=== PATIENT | male | born 1960 | race American Indian/Alaskan Native ===

== ENCOUNTER 2016-09-30 04:26 | Inpatient (IN) | payer MEDICARE, OTHER ==
[2016-09-30] MEDS ORDERED: Aspirin 325 mg EC Tablets PO STA (04:36)
--- NOTE | 2016-09-30 04:36 | C.PDOC ---
History Of Present Illness patient presents with worsening shortness of breath and chest discomfort over the last few hours. Pt is wearing a life vest for ef of about 20%. Speaking in 1 -2 word "sentences". Diaphoretic. Time Seen by Provider: 09/30/16 04:26 History Per: Patient History/Exam Limitations: clinical condition Onset/Duration Of Symptoms: Hrs Current Symptoms Are (Timing): Worse Initiating Event: Upper Respiratory Illness Quality: Dull, Aching Exacerbating Factor(s): Exertion Current Respiratory Medications: See Home Med List Severity: Severe Pain Scale Rating Of: 9 Associated Symptoms: Sweating, Chest Pain. denies: Fever, Chills Reports Recently: Seen In ED, Treated By A Physician Recent travel outside of the [place]: No Additional History Per: EMS Past Medical History Reviewed: Historical Data, Nursing Documentation, Vital Signs Vital Signs: Last Vital Signs Temp Pulse 112 H 09/30/16 05:27 Resp 16 09/30/16 05:27 BP 171/114 H 09/30/16 05:27 Pulse Ox 18 L 09/30/16 05:27 - Medical History PMH: Arthritis (R KNEE TKR), Asthma, COPD, Diabetes, HTN, Hypercholesterolemia, Hyperlipidemia, Pancreatitis Denies: CHF (denies), Depression, Chronic Kidney Disease, TIA - [facility] Procedures ALCOHOL DETOXIFICATION (08/20/13) INJECT/INFUSE NEC (08/17/13) MEASURE OF CARDIAC SAMPL & PRESSURE, L HEART, PERC APPROACH (05/20/16) PLAIN RADIOGRAPHY OF LEFT HEART USING LOW OSMOLAR CONTRAST (05/20/16) PLAIN RADIOGRAPHY OF THORACIC AORTA USING L OSM CONTRAST (05/20/16) Family History: States: No Known Family Hx - Social History Hx Tobacco Use: Yes Hx Alcohol Use: No Hx Substance Use: No - Immunization History Hx Tetanus Toxoid Vaccination: Yes Hx Influenza Vaccination: Yes Hx Pneumococcal Vaccination: Yes Review Of Systems Review Of Systems: ROS cannot be obtained secondary to pt's inabilty to answer questions. Physical Exam - Physical Exam Appears: In Acute Distress Skin: Diaphoretic Eye(s): bilateral: Normal Inspection Nose: Flaring Oral Mucosa: Moist Neck: Supple Chest: Symmetrical Cardiovascular: Rhythm Regular Respiratory: Decreased Breath Sounds, Rales (bases), Wheezing (few) Gastrointestinal/Abdominal: Soft, No Tenderness, No Distention, No Guarding Back: Normal Inspection Extremity: No Tenderness Extremity: Bilateral: Atraumatic Neurological/Psych: Oriented x3, Normal Cognition Gait: Unable To Assess ED Course And Treatment - Laboratory Results Result Diagrams: 09/30/16 04:52 09/30/16 04:52 ECG: Interpreted By Me, Viewed By Me ECG Rhythm: Sinus Tachycardia (130), Nonspecific Changes (lvh with repol abn) Pulse Ox Interpretation: Normal - Radiology CXR: Interpreted by Me, Viewed By Me Progress Note: blood work, iv lasix, bipap, nitro Critical Care Time - Critical Care Note Total Time (in mins): 45 Documented critical care: time excludes all time spent performing seperately billable procedures. Disposition Discussed With Dr.: Enrike Mccray Comment: accepted the pt on his service and took over the carea t 5:40AM Doctor Will See Patient In The: ED Counseled Patient/Family Regarding: Studies Performed, Diagnosis - Disposition Disposition: HOSPITALIZED Disposition Time: 04:35 Condition: GUARDED - POA Present On Arrival: Poor Glycemic Control - Clinical Impression Clinical Impression: Congestive heart failure, Respiratory distress, Chest pain Decision To Admit - Pt Status Changed To: Hospital Disposition Of: Inpatient - Admit Certification Admit to Inpatient:: After my assessment, the patient will require hospitalization for at least two midnights. This is because of the severity of symptoms shown, intensity of services needed, and/or the medical risk in this patient being treated as an outpatient. - InPatient: Physician Admission Certification: I certify that this patient requires 2 or more midnights of care for the following reason:: After my assessment, the patient will require hospitalization for at least two midnights. This is because of the severity of symptoms shown, intensity of services needed, and/or the medical risk in this patient being treated as an outpatient. - . Bed Request Type: Telemetry Admitting Physician: Enrike Mccray Patient Diagnosis: Congestive heart failure, Respiratory distress, Chest pain
[2016-09-30 04:37] VITALS: BMI 25.9
[2016-09-30] MEDS ORDERED: Nitroglycerin 2% Ointment Foilpak UD TOP STA (04:40)
[2016-09-30] MEDS ORDERED: Nitroglycerin 2% Ointment Foilpak UD TOP ONE (04:45)
[2016-09-30 04:54] LABS: BASO # 0.1 K/uL (0.0-0.2); BASO % 1.2 % (0.0-2.0); EOS # 0.2 K/uL (0.0-0.7); EOS % 1.8 % (0.0-4.0); HEMATOCRIT 39.7 % (35.0-51.0); LYMPH # 2.2 K/uL (1.0-4.3); LYMPH % 22.8 % (20.0-40.0); MEAN CELL VOLUME 93.9 fL (80.0-94.0); MEAN CORPUSCULAR HEMOGLOBIN 30.6 pg (27.0-31.0); MEAN CORPUSCULAR HGB CONC 32.6 g/dL (33.0-37.0); MEAN PLATELET VOLUME 8.9 fL (7.2-11.7); MONO # 0.7 K/uL (0.0-0.8); RED CELL DISTRIBUTION WIDTH 14.5 % (11.5-14.5); WHITE BLOOD COUNT 9.7 K/uL (4.8-10.8)
[2016-09-30 05:03] LABS: CHLORIDE 100 mmol/L (98-107)
[2016-09-30 05:04] LABS: POTASSIUM 4.7 mmol/L (3.6-5.2); SODIUM 136 mmol/L (132-148)
[2016-09-30 05:06] LABS: ALB/GLOB RATIO 1.2 (1.0-2.1); ALKALINE PHOSPHATASE 78 U/L (38-126); AST/SGOT 42 U/L (17-59); BLOOD UREA NITROGEN 12 mg/dL (9-20); CARBON DIOXIDE 20 mmol/L (22-30); GFR AFRICAN-AMERICAN > 60; TOTAL PROTEIN 6.7 g/dL (6.3-8.3)
[2016-09-30 05:06] LABS: ABG ALLEN TEST POS; DRAW SITE RR
[2016-09-30 05:07] LABS: ALT/SGPT 23 U/L (21-72); GLUCOSE,RANDOM 225 mg/dL (75-110); MAGNESIUM 1.9 mg/dL (1.6-2.3)
[2016-09-30 05:09] LABS: INR 0.9
[2016-09-30] MEDS: Albuterol-Ipratrop 3 mg / 0.5 (3 ml) UD IH SCH ×3 (05:21→05:45)
[2016-09-30] MEDS ORDERED: Albuterol-Ipratrop 3 mg / 0.5 (3 ml) UD ONE (05:25)
[2016-09-30 05:31] LABS: RBC URINE 1 /hpf (0-3); URINE BACTERIA RARE (<OCC); URINE BILIRUBIN NEGATIVE (NEGATIVE); URINE BLOOD NEGATIVE (NEGATIVE); URINE COLOR Straw (YELLOW); URINE GLUCOSE (UA) NORMAL (Normal); URINE KETONE NEGATIVE (NEGATIVE); URINE LEUKOCYTE ESTERASE NEG Leu/uL (Negative); URINE PROTEIN 2+ mg/dL (NEGATIVE); URINE UROBILINOGEN NORMAL mg/dL (0.2-1.0); WBC URINE < 1 /hpf (0-5)
[2016-09-30] MEDS ORDERED: Oxycodone/Acetaminophen 5/325 mg Tab PO PRN ×3 (06:20→10:10)
--- NOTE | 2016-09-30 06:33 | CP.PCM.HP ---
<Amado Reid - Last Filed: 09/30/16 07:02> History of Present Illness - History of Present Illness History of Present Illness: This is a 56 y/o M with a PMH of CHF, HTN, diabetes, arthritis, pancreatitis, hyperlipidemia and ETOH abuse presents to the ED because he had chest pain and SOB since yesterday. Pt states that he noticed that while walking to the store he was not able to ambulate for more than 2 minutes without having to stop to catch his breath. He states that he was fine at rest up until early this morning (~01:00), it became too much and he came in to the ED. Pt reports that he has missed some of his home medication doses due to new social stressors which he did not want to talk about. He states that his chest feels heavy and he has palpitations. Pt states that this is the same feeling he has for prior admission with CHF exacerbation. He admits to orthopnea and palpitations as well. Denies any fevers, chills, nausea, vomiting, headaches, LOC, dizziness, numbness or tingling. PMD: Dr. Hodges Cardio: Valentine Allergies: Seasonal PMHx: CHF, Arthritis, COPD, Diabetes, HTN, Pancreatitis, Hyperlipidemia PSHx: Thoracentesis, R. Total Knee replacement FamilyHx: Father -CVA in his 70s. SocialHx: current smoker -10 year pack history, drinks 4 24oz beers/day, past marijuana and cocaine use. Lives with step-daughter. On disability from [employer]. Ambulates with a cane. Lives on second floor of an apartment. Present on Admission - Present on Admission Any Indicators Present on Admission: No Review of Systems - Constitutional Constitutional: absent: Chills, Fever - EENT Eyes: absent: Blurred Vision, Pain - Cardiovascular Cardiovascular: Chest Pain, Dyspnea on Exertion, Orthopnea, Palpitations. absent: Diaphoresis, Lightheadedness, Syncope - Respiratory Respiratory: Cough, Dyspnea. absent: Wheezing - Gastrointestinal Gastrointestinal: absent: Diarrhea, Nausea, Vomiting - Genitourinary Genitourinary: absent: Urinary Frequency, Urinary Urgency - Musculoskeletal Musculoskeletal: absent: Muscle Weakness, Stiffness - Integumentary Integumentary: absent: Pruritus, Rash - Neurological Neurological: absent: Dizziness, Tingling Past Patient History - Infectious Disease Hx of Infectious Diseases: None - Tetanus Immunizations Tetanus Immunization: Unknown - Past Medical History & Family History Past Medical History?: Yes - Past Social History Smoking Status: Light Smoker < 10 Cigarettes Daily - CARDIAC Hx Congestive Heart Failure: No (denies) Hx Hypercholesterolemia: Yes Hx Hypertension: Yes - PULMONARY Hx Asthma: Yes Hx Chronic Obstructive Pulmonary Disease (COPD): Yes - NEUROLOGICAL Hx Transient Ischemic Attacks (TIA): No - HEENT Hx HEENT Problems: No - RENAL Hx Chronic Kidney Disease: No - ENDOCRINE/METABOLIC Hx Endocrine Disorders: Yes Hx Diabetes Mellitus Type 2: Yes - HEMATOLOGICAL/ONCOLOGICAL Hx Blood Disorders: No - INTEGUMENTARY Hx Dermatological Problems: No - MUSCULOSKELETAL/RHEUMATOLOGICAL Hx Arthritis: Yes (R KNEE TKR) - GASTROINTESTINAL Hx Pancreatitis: Yes - GENITOURINARY/GYNECOLOGICAL Hx Genitourinary Disorders: No - PSYCHIATRIC Hx Depression: No Hx Substance Use: No - SURGICAL HISTORY Hx Surgeries: Yes Hx Orthopedic Surgery: Yes (RIGHT KNEE [id number]) - ANESTHESIA Hx Anesthesia: Yes Hx Anesthesia Reactions: No Hx Malignant Hyperthermia: No Meds Allergies/Adverse Reactions: Allergies Allergy/AdvReac Type Severity Reaction Status Date / Time No Known Allergies Allergy Verified 06/07/16 13:33 Physical Exam - Constitutional Appears: Non-toxic, In Acute Distress (on BiPAP) - Head Exam Head Exam: ATRAUMATIC, NORMOCEPHALIC - Eye Exam Eye Exam: Normal appearance Pupil Exam: PERRL - ENT Exam ENT Exam: Mucous Membranes Moist - Respiratory Exam Respiratory Exam: Rales, NORMAL BREATHING PATTERN Additional comments: Pt on BiPAP, able to talk in full sentences now, wasnt able to on presentation. - Cardiovascular Exam Cardiovascular Exam: +S1, +S2 - GI/Abdominal Exam GI & Abdominal Exam: Normal Bowel Sounds, Soft - Extremities Exam Extremities exam: Positive for: normal inspection. Negative for: pedal edema - Back Exam Back exam: NORMAL INSPECTION - Neurological Exam Neurological exam: Alert, Oriented x3 - Skin Skin Exam: Dry, Warm Results - Vital Signs Recent Vital Signs: Last Vital Signs Temp Pulse 112 H 09/30/16 05:27 Resp 16 09/30/16 05:27 BP 171/114 H 09/30/16 05:27 Pulse Ox 18 L 09/30/16 05:27 - Labs Result Diagrams: 09/30/16 04:52 09/30/16 04:52 Labs: Laboratory Results - last 24 hr 09/30/16 09/30/16 09/30/16 04:52 05:03 05:23 WBC 9.7 D RBC 4.23 L Hgb 12.9 Hct 39.7 MCV 93.9 MCH 30.6 MCHC 32.6 L RDW 14.5 Plt Count 205 MPV 8.9 Neut % (Auto) 67.2 Lymph % (Auto) 22.8 [place] % (Auto) 7.0 Eos % (Auto) 1.8 Baso % (Auto) 1.2 Neut # 6.5 Lymph # 2.2 [place] # 0.7 Eos # 0.2 Baso # 0.1 PT 10.4 INR 0.9 APTT 32 Puncture Site Rr pCO2 39 pO2 440 H HCO3 19.8 L ABG pH 7.30 L ABG Total CO2 20.4 L ABG O2 Saturation 99.1 H ABG Base Excess -6.7 L Johan Test Pos ABG Potassium 4.2 A-a O2 Difference 224.0 Respiratory Index 0.5 Glucose 285 H Lactate 1.5 FiO2 100.0 Inspiratory BiPAP 10 Expiratory BiPAP 5 Sodium 136 136.0 Potassium 4.7 Chloride 100 110.0 H Carbon Dioxide 20 L Anion Gap 21 H BUN 12 Creatinine 1.2 Est GFR ( Amer) > 60 Est GFR (Non-Af Amer) > 60 Random Glucose 225 H Calcium 8.0 L Magnesium 1.9 Total Bilirubin 1.0 AST 42 ALT 23 Alkaline Phosphatase 78 Troponin I 0.0640 NT-Pro-B Natriuret Pep 6050 H Total Protein 6.7 Albumin 3.7 Globulin 3.0 Albumin/Globulin Ratio 1.2 Arterial Blood Potassium 4.2 Urine Color Straw Urine Clarity Clear Urine pH 6.0 Ur Specific [place] 1.005 Urine Protein 2+ H Urine Glucose (UA) Normal Urine Ketones Negative Urine Blood Negative Urine Nitrate Negative Urine Bilirubin Negative Urine Urobilinogen Normal Ur Leukocyte Esterase Neg Urine WBC (Auto) < 1 Urine RBC (Auto) 1 Ur Squamous Epith Cells < 1 Urine Bacteria Rare Hyaline Casts 6-10 H Serum Ketones Negative Assessment & Plan - Assessment and Plan (Free Text) Assessment: Chest pain - Likely due to acute on chronic systolic heart failure exacerbation - EF of 20 % with life vest on - SOB, on BiPAP - Missed several doses of home medications - BNP > 6000 - CXR - no obvious pleural effusions, mild venous congestion - f/u official read - EKG - sinus tachycardic, no st elevations or signs of ischemia - Restart home meds: Coreg, lisinopril - Add aldactone - Increase lasix to 40mg Daily - Cardio consult (Aleksandra) - help appreciated - f/u recs - Echo ordered - F/U labs: A1C, Lipids and thyroid panel - Serial SHANTELLE's - f/u - HOB >30, I/O's and daily weights Shortness of breath - Likely due to CHF exacerbation vs COPD exacerbation - CXR - no obvious infiltrates seen - f/u official read - See above COPD - Duonebs PRN - Restart home budesonide - monitor HTN - Restart home meds - see above - Monitor and adjust as necessary Hx of diabetes - Last A1C 5.5 - will repeat - Hold home metformin - DAV - Accuchecks Hx of HLD - Restart home crestor - Lipid panel - f/u PPX - Lovenox - Pepcid <Enrike Mccray - Last Filed: 10/01/16 06:07> Results - Vital Signs Recent Vital Signs: Last Vital Signs Temp 98.0 F 09/30/16 23:40 Pulse 78 10/01/16 02:07 Resp 20 09/30/16 23:40 BP 115/82 09/30/16 23:40 Pulse Ox 100 09/30/16 23:40 - Labs Result Diagrams: 09/30/16 04:52 09/30/16 04:52 Labs: Laboratory Results - last 24 hr 09/30/16 09/30/16 09/30/16 07:18 08:19 08:53 POC Glucose (mg/dL) 156 H Total Creatine Kinase CK-MB (Mass) Troponin I, Quant Triglycerides 80 Cholesterol 137 LDL Cholesterol Direct 35 HDL Cholesterol 78 H Free T4 0.95 TSH 3rd Generation 0.47 09/30/16 09/30/16 09/30/16 10:39 11:51 16:29 POC Glucose (mg/dL) 151 H 96 Total Creatine Kinase 69 CK-MB (Mass) 0.77 Troponin I, Quant 0.0730 Triglycerides Cholesterol LDL Cholesterol Direct HDL Cholesterol Free T4 TSH 3rd Generation 09/30/16 09/30/16 10/01/16 18:07 21:01 02:07 POC Glucose (mg/dL) 134 H Total Creatine Kinase 49 L 50 L CK-MB (Mass) 0.75 0.74 Troponin I, Quant 0.0560 0.0470 Triglycerides Cholesterol LDL Cholesterol Direct HDL Cholesterol Free T4 TSH 3rd Generation Assessment & Plan - Date & Time Date: 10/01/16 (I have seen and examined the patient. I agree with the findings and plan of care as documented by Dr. Younger. Patient with chest pain and SOB. May be secondary to CHF but also with history of COPD. ROMIx3 with EKG. Aspirin and Statin. Continue home meds. Lasix. Nebs and Oxygen. Monitor for acute changes.) Time: 06:05 Attending/Attestation - Attestation I have personally seen and examined this patient.: Yes I have fully participated in the care of the patient.: Yes I have reviewed all pertinent clinical information: Yes
[2016-09-30] MEDS ORDERED: Oxycodone/Acetaminophen 5/325 mg Tab ONE ×2 (06:49→12:15)
[2016-09-30] MEDS ORDERED: (Novolog) Insulin Aspart, Recombinant 100 u/ml 10 ml vial ONE ×2 (07:57→12:15)
[2016-09-30] MEDS: (Novolog) Insulin Aspart, Recombinant 100 u/ml 10 ml vial SC SCH ×4 (08:01→23:10)
[2016-09-30] MEDS: Budesonide 0.5 mg/2 ml Inhal Susp UD INH SCH ×2 (08:42→21:22)
[2016-09-30 09:12] LABS: THYROID STIMULATING HORMONE 0.47 mIU/L (0.46-4.68)
--- NOTE | 2016-09-30 09:40 | RAD ---
PROCEDURE: CHEST RADIOGRAPH, 1 VIEW HISTORY: SOB COMPARISON: Comparison is made to 06/07/2016 scroll FINDINGS: LUNGS: No evidence of new infiltrate or consolidation in the lungs. [id number] pulmonary vascular congestion. PLEURA: No pneumothorax or pleural fluid seen. CARDIOVASCULAR: Normal. OSSEOUS STRUCTURES: No significant abnormalities. VISUALIZED UPPER ABDOMEN: Normal. OTHER FINDINGS: None. IMPRESSION: [id number] pulmonary vascular congestion.
--- NOTE | 2016-09-30 09:48 | CP.PCM.PN ---
Objective - Vital Signs/Intake and Output Vital Signs (last 24 hours): Temp Pulse Resp BP Pulse Ox 98.2 F 86 21 128/84 100 09/30/16 07:15 09/30/16 09:15 09/30/16 09:15 09/30/16 09:15 09/30/16 09:15 Intake and Output: 09/30/16 09/30/16 06:59 18:59 Output Total 785 Balance -785 - Medications Medications: Current Medications Albuterol/Ipratropium (Duoneb 3 Mg/0.5 Mg (3 Ml) Ud) 3 ml INH RQ4 PRN PRN Reason: Shortness of Breath Aspirin (Aspirin Chewable) 81 mg PO DAILY [facility] Budesonide (Pulmicort Respules) 0.5 mg INH RQ12 [facility] Last Admin: 09/30/16 08:42 Dose: 0.5 mg Carvedilol (Coreg) 6.25 mg PO BID [facility] Enoxaparin Sodium (Lovenox) 40 mg SC DAILY [facility] Famotidine (Pepcid) 20 mg PO BID [facility] Furosemide (Lasix) 40 mg IVP DAILY [facility] Insulin Aspart (Novolog) 0 unit SC ACHS [facility] PRN Reason: Protocol Last Admin: 09/30/16 08:01 Dose: 1 unit Lisinopril (Zestril) 5 mg PO DAILY [facility] Oxycodone/Acetaminophen (Percocet 5/325 Mg Tab) 1 tab PO Q8H PRN PRN Reason: Pain, severe (8-10) Stop: 10/03/16 06:31 Last Admin: 09/30/16 06:50 Dose: 1 tab Rosuvastatin Calcium (Crestor) 10 mg PO HS [facility] Spironolactone (Aldactone) 25 mg PO DAILY [facility] - Labs Labs: PT 10.4 SECONDS (9.7-12.2) 09/30/16 04:52 INR 0.9 09/30/16 04:52 APTT 32 SECONDS (21-34) 09/30/16 04:52
[2016-09-30] MEDS: Enoxaparin 40 mg Syringe SC SCH (10:27)
--- NOTE | 2016-09-30 15:01 | CP.PCM.CON ---
History of Present Illness - History of Present Illness History of Present Illness: History of Present Illness: This is a 56 y/o M with a PMH of CHF, presents to the ED because he had chest pain and SOB since yesterday. Pt states that he noticed that while walking to the store he was not able to ambulate for more than 2 minutes without having to stop to catch his breath. He states that he was fine at rest up until early this morning (~01:00), it became too much and he came in to the ED. Pt reports that he has missed some of his home medication doses due to new social stresses which he did not want to talk about. He states that his chest feels heavy and he has palpitations. Pt states that this is the same feeling he has for prior admission with CHF exacerbation. He admits to orthopnea and palpitations as well. Denies any fevers, chills, nausea, vomiting, headaches, LOC, dizziness, numbness or tingling. Allergies: Seasonal PMHx: CHF, Arthritis, COPD, Diabetes, HTN, Pancreatitis, Hyperlipidemia PSHx: Thoracentesis, R. Total Knee replacement FamilyHx: Father -CVA in his 70s. SocialHx: current smoker -10 year pack history, drinks 4 24oz beers/day, past marijuana and cocaine use. Lives with step-daughter. On disability from [employer]. Ambulates with a cane. Lives on second floor of an apartment. Review of Systems - Review of Systems Systems not reviewed;Unavailable: Respiratory Distress Past Patient History - Infectious Disease Hx of Infectious Diseases: None - Tetanus Immunizations Tetanus Immunization: Unknown - Past Medical History & Family History Past Medical History?: Yes - Past Social History Smoking Status: Light Smoker < 10 Cigarettes Daily Alcohol: > 2 Drinks/Day - CARDIAC Hx Congestive Heart Failure: No (denies) Hx Hypercholesterolemia: Yes Hx Hypertension: Yes - PULMONARY Hx Asthma: Yes Hx Chronic Obstructive Pulmonary Disease (COPD): Yes - NEUROLOGICAL Hx Transient Ischemic Attacks (TIA): No - HEENT Hx HEENT Problems: No - RENAL Hx Chronic Kidney Disease: No - ENDOCRINE/METABOLIC Hx Endocrine Disorders: Yes Hx Diabetes Mellitus Type 2: Yes - HEMATOLOGICAL/ONCOLOGICAL Hx Blood Disorders: No - INTEGUMENTARY Hx Dermatological Problems: No - MUSCULOSKELETAL/RHEUMATOLOGICAL Hx Arthritis: Yes (R KNEE TKR) - GASTROINTESTINAL Hx Pancreatitis: Yes - GENITOURINARY/GYNECOLOGICAL Hx Genitourinary Disorders: No - PSYCHIATRIC Hx Depression: No Hx Substance Use: No - SURGICAL HISTORY Hx Surgeries: Yes Hx Orthopedic Surgery: Yes (RIGHT KNEE [id number]) - ANESTHESIA Hx Anesthesia: Yes Hx Anesthesia Reactions: No Hx Malignant Hyperthermia: No Meds Allergies/Adverse Reactions: Allergies Allergy/AdvReac Type Severity Reaction Status Date / Time No Known Allergies Allergy Verified 06/07/16 13:33 - Medications Medications: Current Medications Albuterol/Ipratropium (Duoneb 3 Mg/0.5 Mg (3 Ml) Ud) 3 ml INH RQ4 PRN PRN Reason: Shortness of Breath Aspirin (Aspirin Chewable) 81 mg PO DAILY [facility] Last Admin: 09/30/16 10:20 Dose: 81 mg Budesonide (Pulmicort Respules) 0.5 mg INH RQ12 [facility] Last Admin: 09/30/16 08:42 Dose: 0.5 mg Bumetanide (Bumex) 1 mg IVP Q12 [facility] Carvedilol (Coreg) 6.25 mg PO BID [facility] Last Admin: 09/30/16 10:22 Dose: 6.25 mg Enoxaparin Sodium (Lovenox) 40 mg SC DAILY [facility] Last Admin: 09/30/16 10:27 Dose: 40 mg Famotidine (Pepcid) 20 mg PO BID [facility] Last Admin: 09/30/16 10:22 Dose: 20 mg Insulin Aspart (Novolog) 0 unit SC ACHS [facility] PRN Reason: Protocol Last Admin: 09/30/16 12:24 Dose: 1 unit Lisinopril (Zestril) 5 mg PO DAILY [facility] Last Admin: 09/30/16 10:26 Dose: 5 mg Oxycodone/Acetaminophen (Percocet 5/325 Mg Tab) 1 tab PO Q6H PRN PRN Reason: Pain, severe (8-10) Stop: 10/03/16 06:45 Last Admin: 09/30/16 12:25 Dose: 1 tab Rosuvastatin Calcium (Crestor) 10 mg PO [facility] Physical Exam - Constitutional Appears: In Acute Distress - Head Exam Head Exam: ATRAUMATIC, NORMAL INSPECTION, NORMOCEPHALIC - Eye Exam Eye Exam: EOMI, Normal appearance, PERRL Pupil Exam: NORMAL ACCOMODATION, PERRL - ENT Exam ENT Exam: Mucous Membranes Moist, Normal Exam - Neck Exam Neck exam: Positive for: Normal Inspection - Respiratory Exam Additional comments: decreased bs at bases b/l positive rales - Cardiovascular Exam Cardiovascular Exam: REGULAR RHYTHM, +S1, +S2, Systolic Murmur - GI/Abdominal Exam GI & Abdominal Exam: Normal Bowel Sounds, Soft. absent: Tenderness - Extremities Exam Extremities exam: Positive for: normal inspection - Back Exam Back exam: NORMAL INSPECTION - Neurological Exam Neurological exam: Alert, CN II-XII Intact, Normal Gait, Oriented x3, Reflexes Normal - Psychiatric Exam Psychiatric exam: Normal Affect, Normal Mood Results - Vital Signs Recent Vital Signs: Last Vital Signs Temp 98.2 F 09/30/16 07:15 Pulse 79 09/30/16 14:32 Resp 22 09/30/16 14:32 BP 107/64 09/30/16 14:32 Pulse Ox 100 09/30/16 14:32 - Labs Result Diagrams: 09/30/16 04:52 09/30/16 04:52 Labs: Laboratory Results - last 24 hr 09/30/16 09/30/16 09/30/16 07:18 08:19 08:53 POC Glucose (mg/dL) 156 H Total Creatine Kinase CK-MB (Mass) Troponin I, Quant Triglycerides 80 Cholesterol 137 LDL Cholesterol Direct 35 HDL Cholesterol 78 H Free T4 0.95 TSH 3rd Generation 0.47 09/30/16 09/30/16 10:39 11:51 POC Glucose (mg/dL) 151 H Total Creatine Kinase 69 CK-MB (Mass) 0.77 Troponin I, Quant 0.0730 Triglycerides Cholesterol LDL Cholesterol Direct HDL Cholesterol Free T4 TSH 3rd Generation - EKG Data EKG Interpreted by: Myself EKG shows normal: Sinus rhythm Rate: Tachycardia - EKG Data EKG comments: no ischemia Assessment & Plan (1) Congestive heart failure Status: Acute (2) Dyspnea Status: Acute (3) Respiratory distress Status: Acute (4) Smoker Status: Active (5) Alcohol abuse Status: Acute (6) Noncompliance with medication regimen Status: Acute (7) Infestation by bed bug Status: Acute - Assessment and Plan (Free Text) Plan: will change diuretics to bumex q12 continue other chf meds echo to eval ef monitor trop desats of bipap, continue bipap at this point acute exac likely 2ndary to med noncompliance monitor lytes antiplts. statin 45 min
[2016-09-30 17:51] VITALS: RESP 20
[2016-09-30] MEDS ORDERED: Nitroglycerin 2% Ointment Foilpak UD TOP PRN (17:57)
[2016-09-30] MEDS: Oxycodone/Acetaminophen 5/325 mg Tab PO PRN (18:45)
[2016-09-30] MEDS: Albuterol-Ipratrop 3 mg / 0.5 (3 ml) UD INH PRN (21:22)
[2016-10-01] MEDS: Oxycodone/Acetaminophen 5/325 mg Tab PO PRN ×4 (00:44→18:36)
[2016-10-01 07:12] LABS: BASO % 0.9 % (0.0-2.0); EOS # 0.2 K/uL (0.0-0.7); EOS % 3.1 % (0.0-4.0); HEMATOCRIT 36.7 % (35.0-51.0); LYMPH # 1.5 K/uL (1.0-4.3); LYMPH % 30.2 % (20.0-40.0); MEAN CELL VOLUME 93.3 fL (80.0-94.0); MEAN CORPUSCULAR HEMOGLOBIN 30.6 pg (27.0-31.0); MEAN CORPUSCULAR HGB CONC 32.8 g/dL (33.0-37.0); MEAN PLATELET VOLUME 9.6 fL (7.2-11.7); MONO # 0.7 K/uL (0.0-0.8); RED CELL DISTRIBUTION WIDTH 14.2 % (11.5-14.5)
[2016-10-01] MEDS: (Novolog) Insulin Aspart, Recombinant 100 u/ml 10 ml vial SC SCH ×4 (07:30→21:34)
[2016-10-01 07:47] LABS: CHLORIDE 98 mmol/L (98-107)
[2016-10-01 07:48] LABS: SODIUM 136 mmol/L (132-148)
[2016-10-01 07:50] LABS: CARBON DIOXIDE 27 mmol/L (22-30); GFR AFRICAN-AMERICAN > 60
[2016-10-01 07:51] LABS: ALB/GLOB RATIO 1.3 (1.0-2.1); ALKALINE PHOSPHATASE 73 U/L (38-126); ALT/SGPT 23 U/L (21-72); AST/SGOT 21 U/L (17-59); BILIRUBIN,TOTAL 0.5 mg/dL (0.2-1.3); BLOOD UREA NITROGEN 20 mg/dL (9-20); CALCIUM 8.1 mg/dl (8.6-10.4); GLUCOSE,RANDOM 114 mg/dL (75-110); TOTAL PROTEIN 6.4 g/dL (6.3-8.3)
[2016-10-01] MEDS: Budesonide 0.5 mg/2 ml Inhal Susp UD INH SCH ×2 (08:05→19:40)
[2016-10-01] MEDS: Albuterol-Ipratrop 3 mg / 0.5 (3 ml) UD INH PRN (08:06)
[2016-10-01] MEDS: Enoxaparin 40 mg Syringe SC SCH (10:30)
--- NOTE | 2016-10-01 11:10 | CP.PCM.PN ---
<Amado Reid - Last Filed: 10/01/16 11:07> Subjective - Date & Time of Evaluation Date of Evaluation: 10/01/16 Time of Evaluation: 11:08 - Subjective Subjective: PGY-1 note for medicine service Pt seen and examined at bedside. Pt observed on Bipap tolerating it well. Pt states that he feels better today. He slept well through the night and states his sob is improved with no chest discomfort. Denies fevers, chills, chest pain , sob, nausea or vomiting. Objective - Vital Signs/Intake and Output Vital Signs (last 24 hours): Temp Pulse Resp BP Pulse Ox 97.4 F L 59 L 20 113/78 100 10/01/16 08:45 10/01/16 08:45 10/01/16 08:45 10/01/16 08:45 10/01/16 08:45 Intake and Output: 10/01/16 10/01/16 06:59 18:59 Intake Total 500 Output Total 700 Balance -200 - Medications Medications: Current Medications Albuterol/Ipratropium (Duoneb 3 Mg/0.5 Mg (3 Ml) Ud) 3 ml INH RQ4 PRN PRN Reason: Shortness of Breath Last Admin: 10/01/16 08:06 Dose: 3 ml Aspirin (Aspirin Chewable) 81 mg PO DAILY [facility] Last Admin: 09/30/16 10:20 Dose: 81 mg Budesonide (Pulmicort Respules) 0.5 mg INH RQ12 [facility] Last Admin: 10/01/16 08:05 Dose: 0.5 mg Bumetanide (Bumex) 2 mg IVP Q12 [facility] Last Admin: 09/30/16 22:37 Dose: 2 mg Carvedilol (Coreg) 6.25 mg PO BID [facility] Last Admin: 09/30/16 18:44 Dose: 6.25 mg Enoxaparin Sodium (Lovenox) 40 mg SC DAILY [facility] Last Admin: 09/30/16 10:27 Dose: 40 mg Famotidine (Pepcid) 20 mg PO BID [facility] Last Admin: 09/30/16 18:40 Dose: 20 mg Influenza Virus Vaccine (Afluria) 45 mcg IM .ONCE ONE Stop: 10/02/16 10:01 Insulin Aspart (Novolog) 0 unit SC ACHS [facility] PRN Reason: Protocol Last Admin: 10/01/16 07:30 Dose: Not Given Lisinopril (Zestril) 5 mg PO DAILY [facility] Last Admin: 09/30/16 10:26 Dose: 5 mg Lorazepam (Ativan) 2 mg IVP Q6H PRN PRN Reason: Anxiety Nitroglycerin (Nitro-Bid 2% Oint) 1 ea TOP Q6 PRN PRN Reason: Other Last Admin: 09/30/16 18:44 Dose: 1 ea Oxycodone/Acetaminophen (Percocet 5/325 Mg Tab) 2 tab PO Q6H PRN PRN Reason: Pain, severe (8-10) Stop: 10/03/16 06:45 Last Admin: 10/01/16 06:25 Dose: 2 tab Rosuvastatin Calcium (Crestor) 10 mg PO HS [facility] Last Admin: 09/30/16 22:37 Dose: 10 mg - Labs Labs: 10/01/16 06:46 10/01/16 06:46 PT 10.4 SECONDS (9.7-12.2) 09/30/16 04:52 INR 0.9 09/30/16 04:52 APTT 32 SECONDS (21-34) 09/30/16 04:52 - Constitutional Appears: Non-toxic, No Acute Distress - Head Exam Head Exam: ATRAUMATIC, NORMOCEPHALIC - ENT Exam ENT Exam: Mucous Membranes Moist - Respiratory Exam Respiratory Exam: Clear to Ausculation Bilateral, NORMAL BREATHING PATTERN. absent: Respiratory Distress Additional comments: on BiPAP - Cardiovascular Exam Cardiovascular Exam: +S1, +S2 - GI/Abdominal Exam GI & Abdominal Exam: Soft, Normal Bowel Sounds - Neurological Exam Neurological Exam: Alert, Awake - Skin Skin Exam: Dry, Warm Assessment and Plan - Assessment and Plan (Free Text) Assessment: Chest pain - Resolved now, was likely due to acute on chronic systolic heart failure exacerbation - EF of 20% with life vest on - Still on BiPAP - BNP > 6000 on admission, now 4040 - CXR / - Vwpv-cc-cjkltbeg pulmonary vascular congestion. - Continue Coreg, lisinopril and aldactone - Cardio consult ([facility]) - help appreciated - Changed Lasix to Bumex 2mg Q12H - F/U echo - c/w current management - f/u further recs - Echo ordered - pending - F/U labs: A1C, Lipids and thyroid panel - A1C: 5.2 - Lipids: wml - Thyroid panel: wnl - Serial SHANTELLE's - neg x 3 - HOB >30, I/O's and daily weights Shortness of breath - Likely due to CHF exacerbation vs COPD exacerbation - CXR - no obvious infiltrates seen - See above COPD - Duonebs PRN - Restart home budesonide - monitor HTN - Restart home meds - see above - Monitor and adjust as necessary Hx of diabetes - Last A1C 5.5 - repeat is 5.2 - Hold home metformin - DAV - Accuchecks Hx of HLD - Restart home crestor - Lipid panel - wnl PPX - Lovenox - Pepcid <Jason Dunbar - Last Filed: 11/03/16 17:48> Objective - Vital Signs/Intake and Output Vital Signs (last 24 hours): Temp Pulse Resp BP Pulse Ox 98.6 F 72 20 134/94 H 100 10/03/16 08:38 10/03/16 08:38 10/03/16 08:38 10/03/16 08:38 10/03/16 08:38 - Labs Labs: 10/03/16 08:57 10/03/16 08:57 PT 10.4 SECONDS (9.7-12.2) 09/30/16 04:52 INR 0.9 09/30/16 04:52 APTT 32 SECONDS (21-34) 09/30/16 04:52 Attending/Attestation - Attestation I have personally seen and examined this patient.: Yes I have fully participated in the care of the patient.: Yes I have reviewed all pertinent clinical information, including history, physical exam and plan: Yes Notes (Text): Patient seen and examined with the resident. Agree with the resident's evaluation, assessment and plan. Chest pain - Resolved now, was likely due to acute on chronic systolic heart failure exacerbation - EF of 20% with life vest on - Still on BiPAP
--- NOTE | 2016-10-01 15:42 | CP.PCM.PN ---
Subjective - Date & Time of Evaluation Date of Evaluation: 10/01/16 Time of Evaluation: 15:40 - Subjective Subjective: doing well. ambulating. not desating off bipap. Objective - Vital Signs/Intake and Output Vital Signs (last 24 hours): Temp Pulse Resp BP Pulse Ox 97.4 F L 59 L 20 113/78 100 10/01/16 08:45 10/01/16 08:45 10/01/16 08:45 10/01/16 08:45 10/01/16 08:45 Intake and Output: 10/01/16 10/01/16 06:59 18:59 Intake Total 500 Output Total 700 Balance -200 - Medications Medications: Current Medications Albuterol/Ipratropium (Duoneb 3 Mg/0.5 Mg (3 Ml) Ud) 3 ml INH RQ4 PRN PRN Reason: Shortness of Breath Last Admin: 10/01/16 08:06 Dose: 3 ml Aspirin (Aspirin Chewable) 81 mg PO DAILY [facility] Last Admin: 10/01/16 10:30 Dose: 81 mg Budesonide (Pulmicort Respules) 0.5 mg INH RQ12 [facility] Last Admin: 10/01/16 08:05 Dose: 0.5 mg Bumetanide (Bumex) 1 mg IVP Q12 [facility] Carvedilol (Coreg) 6.25 mg PO BID [facility] Last Admin: 10/01/16 10:30 Dose: 6.25 mg Enoxaparin Sodium (Lovenox) 40 mg SC DAILY [facility] Last Admin: 10/01/16 10:30 Dose: 40 mg Famotidine (Pepcid) 20 mg PO BID [facility] Last Admin: 10/01/16 10:30 Dose: 20 mg Influenza Virus Vaccine (Afluria) 45 mcg IM .ONCE ONE Stop: 10/02/16 10:01 Insulin Aspart (Novolog) 0 unit SC ACHS [facility] PRN Reason: Protocol Last Admin: 10/01/16 12:30 Dose: 1 unit Lisinopril (Zestril) 5 mg PO DAILY [facility] Last Admin: 10/01/16 10:30 Dose: 5 mg Lorazepam (Ativan) 2 mg IVP Q6H PRN PRN Reason: Anxiety Nitroglycerin (Nitro-Bid 2% Oint) 1 ea TOP Q6 PRN PRN Reason: Other Last Admin: 09/30/16 18:44 Dose: 1 ea Oxycodone/Acetaminophen (Percocet 5/325 Mg Tab) 2 tab PO Q6H PRN PRN Reason: Pain, severe (8-10) Stop: 10/03/16 06:45 Last Admin: 10/01/16 12:28 Dose: 2 tab Rosuvastatin Calcium (Crestor) 10 mg PO HS [facility] Last Admin: 09/30/16 22:37 Dose: 10 mg - Labs Labs: 10/01/16 06:46 10/01/16 06:46 PT 10.4 SECONDS (9.7-12.2) 09/30/16 04:52 INR 0.9 09/30/16 04:52 APTT 32 SECONDS (21-34) 09/30/16 04:52 - Constitutional Appears: Well - Head Exam Head Exam: ATRAUMATIC, NORMAL INSPECTION, NORMOCEPHALIC - Eye Exam Eye Exam: EOMI, Normal appearance, PERRL Pupil Exam: NORMAL ACCOMODATION, PERRL - ENT Exam ENT Exam: Mucous Membranes Moist, Normal Exam - Neck Exam Neck Exam: Full ROM, Normal Inspection. absent: Lymphadenopathy - Respiratory Exam Respiratory Exam: Rales - Cardiovascular Exam Cardiovascular Exam: REGULAR RHYTHM, +S1, +S2, Murmur - GI/Abdominal Exam GI & Abdominal Exam: Soft, Normal Bowel Sounds. absent: Tenderness - Extremities Exam Extremities Exam: Full ROM, Normal Capillary Refill, Pedal Edema. absent: Joint Swelling - Back Exam Back Exam: NORMAL INSPECTION - Neurological Exam Neurological Exam: Alert, Awake, CN II-XII Intact, Normal Gait, Oriented x3 - Psychiatric Exam Psychiatric exam: Normal Affect, Normal Mood - Skin Skin Exam: Dry, Intact, Normal Color, Warm Assessment and Plan (1) Congestive heart failure Status: Acute (2) Dyspnea Status: Acute (3) Respiratory distress Status: Acute (4) Smoker Status: Active (5) Alcohol abuse Status: Acute (6) Noncompliance with medication regimen Status: Acute (7) Infestation by bed bug Status: Acute - Assessment and Plan (Free Text) Plan: stop nebs as pt has chf. decreased bumex monitor lytes recheck bnp and mag tomorrow
--- NOTE | 2016-10-01 22:26 | CARD ---
APPROVED REPORT EKG Measurement Heart [id number] 178P30 [id number] <Conclusion> Normal sinus rhythm with sinus arrhythmia Possible Left atrial enlargement Left ventricular hypertrophy T wave abnormality, consider inferior ischemia T wave abnormality, consider anterolateral ischemia Prolonged QT Abnormal ECG
--- NOTE | 2016-10-01 23:12 | CARD ---
APPROVED REPORT EKG Measurement Heart [id number] TN 180P40 [id number] <Conclusion> Normal sinus rhythm Voltage criteria for left ventricular hypertrophy T wave abnormality, consider inferior ischemia T wave abnormality, consider anterolateral ischemia Prolonged QT Abnormal ECG
--- NOTE | 2016-10-01 23:12 | CARD ---
APPROVED REPORT EKG Measurement Heart [id number] GA 160P49 [id number] <Conclusion> Sinus tachycardia Left ventricular hypertrophy with repolarization abnormality Abnormal ECG
[2016-10-02] MEDS: Oxycodone/Acetaminophen 5/325 mg Tab PO PRN ×4 (01:05→19:17)
[2016-10-02] MEDS: (Novolog) Insulin Aspart, Recombinant 100 u/ml 10 ml vial SC SCH ×4 (07:30→21:26)
[2016-10-02 07:39] LABS: EOS # 0.2 K/uL (0.0-0.7); EOS % 3.8 % (0.0-4.0); HEMATOCRIT 35.1 % (35.0-51.0); LYMPH # 1.6 K/uL (1.0-4.3); LYMPH % 41.4 % (20.0-40.0); MEAN CELL VOLUME 94.3 fL (80.0-94.0); MEAN CORPUSCULAR HEMOGLOBIN 30.6 pg (27.0-31.0); MEAN CORPUSCULAR HGB CONC 32.5 g/dL (33.0-37.0); MEAN PLATELET VOLUME 9.6 fL (7.2-11.7); MONO # 0.7 K/uL (0.0-0.8); MONO % 16.7 % (0.0-10.0); NRBC % 0.1 % (0.0-2.0); RED CELL DISTRIBUTION WIDTH 14.3 % (11.5-14.5)
[2016-10-02 07:40] LABS: POTASSIUM 3.9 mmol/L (3.6-5.2)
[2016-10-02 07:43] LABS: ALB/GLOB RATIO 1.3 (1.0-2.1); BILIRUBIN,TOTAL 0.3 mg/dL (0.2-1.3); CALCIUM 7.9 mg/dl (8.6-10.4); TOTAL PROTEIN 6.4 g/dL (6.3-8.3)
[2016-10-02] MEDS: Budesonide 0.5 mg/2 ml Inhal Susp UD INH SCH ×2 (08:25→20:04)
[2016-10-02] MEDS ORDERED: guaiFENesin DM 100 mg-10 mg/5 ml UD PO PRN (09:01)
[2016-10-02] MEDS: Enoxaparin 40 mg Syringe SC SCH (09:30)
[2016-10-02] MEDS ORDERED: Influenza Virus Vaccine 45 mcg/0.5 ml Syr IM ONE (10:00)
--- NOTE | 2016-10-02 13:33 | CP.PCM.PN ---
<Niki Lockwood - Last Filed: 10/02/16 13:30> Subjective - Date & Time of Evaluation Date of Evaluation: 10/02/16 Time of Evaluation: 10:40 - Subjective Subjective: Internal medicine progress note for Hospitalist service- Niki Lockwood, PGY-1 Pt S & E at bedside. Pt reports continued use of Bipap overnight and during day due to SOB, also complaining of cough. Denies N/V/F/C, CP, abdominal pain, tolerating diet, sleeping ok, urinating ok, moving bowels ok. Objective - Vital Signs/Intake and Output Vital Signs (last 24 hours): Temp Pulse Resp BP Pulse Ox 97.8 F 81 20 104/72 98 10/02/16 07:25 10/02/16 07:45 10/02/16 07:25 10/02/16 07:25 10/02/16 07:25 - Medications Medications: Current Medications Aspirin (Aspirin Chewable) 81 mg PO DAILY [facility] Last Admin: 10/02/16 12:55 Dose: 81 mg Budesonide (Pulmicort Respules) 0.5 mg INH RQ12 [facility] Last Admin: 10/02/16 08:25 Dose: 0.5 mg Bumetanide (Bumex) 1 mg IVP Q12 [facility] Last Admin: 10/02/16 09:30 Dose: 1 mg Carvedilol (Coreg) 6.25 mg PO BID [facility] Last Admin: 10/02/16 09:28 Dose: 6.25 mg Enoxaparin Sodium (Lovenox) 40 mg SC DAILY [facility] Last Admin: 10/02/16 09:30 Dose: 40 mg Famotidine (Pepcid) 20 mg PO BID [facility] Last Admin: 10/02/16 09:28 Dose: 20 mg Guaifenesin/Dextromethorphan (Robitussin Dm) 5 ml PO Q4H PRN PRN Reason: Cough Last Admin: 10/02/16 13:09 Dose: 5 ml Insulin Aspart (Novolog) 0 unit SC [facility] PRN Reason: Protocol Last Admin: 10/02/16 11:45 Dose: 1 unit Ipratropium [place] (Atrovent) 0.5 mg IH [id number] PRN PRN Reason: Shortness of Breath Lisinopril (Zestril) 5 mg PO DAILY [facility] Last Admin: 10/02/16 09:28 Dose: 5 mg Lorazepam (Ativan) 2 mg IVP Q6H PRN PRN Reason: Anxiety Nitroglycerin (Nitro-Bid 2% Oint) 1 ea TOP Q6 PRN PRN Reason: Other Last Admin: 09/30/16 18:44 Dose: 1 ea Oxycodone/Acetaminophen (Percocet 5/325 Mg Tab) 2 tab PO Q6H PRN PRN Reason: Pain, severe (8-10) Stop: 10/03/16 06:45 Last Admin: 10/02/16 12:55 Dose: 2 tab Rosuvastatin Calcium (Crestor) 10 mg PO HS [facility] Last Admin: 10/01/16 21:23 Dose: 10 mg - Labs Labs: 10/02/16 07:17 10/02/16 07:17 PT 10.4 SECONDS (9.7-12.2) 09/30/16 04:52 INR 0.9 09/30/16 04:52 APTT 32 SECONDS (21-34) 09/30/16 04:52 - Constitutional Appears: Non-toxic, No Acute Distress, Older Than Stated Age - Head Exam Head Exam: ATRAUMATIC, NORMAL INSPECTION, NORMOCEPHALIC - Eye Exam Eye Exam: EOMI, Normal appearance, PERRL Pupil Exam: NORMAL ACCOMODATION, PERRL - ENT Exam ENT Exam: Mucous Membranes Moist, Normal Exam - Neck Exam Neck Exam: Full ROM, Normal Inspection - Respiratory Exam Respiratory Exam: Decreased Breath Sounds (at bases B/L), NORMAL BREATHING PATTERN. absent: Accessory Muscle Use, Chest Wall Tenderness, Rales, Rhonchi, Wheezes, Respiratory Distress, Stridor - Cardiovascular Exam Cardiovascular Exam: REGULAR RHYTHM, +S1, +S2 - GI/Abdominal Exam GI & Abdominal Exam: Soft, Normal Bowel Sounds. absent: Tenderness - Extremities Exam Extremities Exam: Pedal Edema (B/L 1+). absent: Normal Inspection - Back Exam Back Exam: Full ROM, NORMAL INSPECTION. absent: tenderness - Neurological Exam Neurological Exam: Alert, Awake, CN II-XII Intact, Oriented x3 - Psychiatric Exam Psychiatric exam: Normal Affect, Normal Mood - Skin Skin Exam: Dry, Intact, Normal Color, Warm Assessment and Plan - Assessment and Plan (Free Text) Assessment: Chest pain - Resolved now, was likely due to acute on chronic systolic heart failure exacerbation - EF of 20% with life vest on - Still on BiPAP- instructed to only use at night - BNP > 6000 on admission, now 4040 - CXR / - Yqal-ht-gdbkxvhl pulmonary vascular congestion. - Continue Coreg, lisinopril and aldactone - Cardio consult ([facility]) - Cont Bumex 2mg Q12H- dose decreased to 1mg Q12H - F/U echo- pending offical report - D/c duonebs - Monitor lytes - Recheck BNP and Mg tomorrow - F/U labs: - A1C: 5.2 - Lipids: wml - Thyroid panel: wnl - Serial SHANTELLE's - neg x 3 - HOB >30, I/O's and daily weights Shortness of breath/Cough -Likely due to CHF exacerbation vs COPD exacerbation -CXR - no obvious infiltrates seen - Bipap at night only -Duonebs d/c'd -Started Atrovent -Robitussion PRN -See above COPD - Atrovent - Restart home budesonide - monitor HTN -B/P 103/68 - Restart home meds - see above - Monitor and adjust as necessary Hx of diabetes - Last A1C 5.5 - repeat is 5.2 - Hold home metformin - DAV - Accuchecks Hx of HLD - Restart home crestor - Lipid panel - wnl PPX - Lovenox - Pepcid Dispo -Cont current mgmt -Wean off bipap -Monitor cough DW attending <Jason Dunbar - Last Filed: 11/06/16 12:41> Objective - Vital Signs/Intake and Output Vital Signs (last 24 hours): Temp Pulse Resp BP Pulse Ox 98.6 F 72 20 134/94 H 100 10/03/16 08:38 10/03/16 08:38 10/03/16 08:38 10/03/16 08:38 10/03/16 08:38 - Labs Labs: 10/03/16 08:57 10/03/16 08:57 PT 10.4 SECONDS (9.7-12.2) 09/30/16 04:52 INR 0.9 09/30/16 04:52 APTT 32 SECONDS (21-34) 09/30/16 04:52 Attending/Attestation - Attestation I have personally seen and examined this patient.: Yes I have fully participated in the care of the patient.: Yes I have reviewed all pertinent clinical information, including history, physical exam and plan: Yes Notes (Text): Patient seen and examined with the resident. Agree with the resident's evaluation, assessment and plan. Chest pain - Resolved now, was likely due to acute on chronic systolic heart failure exacerbation - EF of 20% with life vest on - Still on BiPAP- instructed to only use at night - BNP > 6000 on admission, now 4040
[2016-10-02 15:33] VITALS: O2SAT 100
[2016-10-02] MEDS: Ipratropium 0.02% Inhal Soln (0.5 mg/2.5 ml) UD IH PRN (20:04)
--- NOTE | 2016-10-03 00:19 | CARD ---
APPROVED REPORT EXAM: Two-dimensional and M-mode echocardiogram with Doppler and color Doppler. Other Information Quality : AverageRhythm : NSR INDICATION Dyspnea Chest Pain Congestive Heart Failure COPD RISK FACTORS Hypertension Hyperlipidemia Diabetes M-Mode DIMENSIONS RVDd1.21 (2.1-3.2cm)Left Atrium (MM)3.54 (2.5-4.0cm) IVSd0.94 (0.7-1.1cm)Aortic Root2.85 (2.2-3.7cm) LVDd5.45 (4.0-5.6cm)Aortic Cusp Exc.1.84 (1.5-2.0cm) PWd0.94 (0.7-1.1cm)FS (%) 13 % LVDs4.72 (2.0-3.8cm)LVEF (%)28 (>50%) Aortic Valve AoV Peak Fgppedvj26.0cm/Suman Peak GR.4mmHg Mitral Valve MV E Lvzxdlij31.2cm/sMV A Myxnbbbw82.0cm/sMV ZFO22mu E/A ratio1.4MVA (PHT)3.82cm2 TDI E/Lateral E'0.0E/Medial E'0.0 Tricuspid Valve TR Peak Mwfqecdq271ol/sTR Peak Gr.34ijJwVIRZ71dkDp LEFT VENTRICLE The left ventricle is normal size. There is normal left ventricular wall thickness. Left ventricle systolic function is severely impaired. The Ejection Fraction is 25-30%. There is global hypokinesis of the left ventricle worst in the mid inferoseptal segment. The left ventricular diastolic function is normal. No left ventricle thrombus noted on this study. RIGHT VENTRICLE The right ventricle is normal size. The right ventricular systolic function is normal. ATRIA The left atrium size is normal. The right atrium size is normal. AORTIC VALVE The aortic valve is mildly sclerotic. The aortic valve is trileaflet. No aortic regurgitation is present. There is no aortic valvular stenosis. There is no aortic valvular vegetation. MITRAL VALVE Mitral annular calcification is moderate. There is no evidence of mitral valve prolapse. There is no mitral valve stenosis. Mitral regurgitation is mild. TRICUSPID VALVE The tricuspid valve is normal in structure. There is trace to mild tricuspid regurgitation. Right ventricular systolic pressure is estimated at less than 30 mmHg. There is no pulmonary hypertension. There is no tricuspid valve prolapse or vegetation. There is no tricuspid valve stenosis. PULMONIC VALVE The pulmonic valve is not well visualized. There is moderate pulmonic valvular regurgitation. GREAT VESSELS The IVC is normal in size and collapses >50% with inspiration. PERICARDIAL EFFUSION There is no pericardial effusion. There is no pleural effusion. <Conclusion> The left ventricle is normal size. Left ventricle systolic function is severely impaired. The Ejection Fraction is 25-30%. There is global hypokinesis of the left ventricle worst in the mid inferoseptal segment. The left ventricular diastolic function is normal. The right ventricle is normal size. The right ventricular systolic function is normal. The left atrium size is normal. The right atrium size is normal. Mitral regurgitation is mild. There is trace to mild tricuspid regurgitation. There is moderate pulmonic valvular regurgitation.
[2016-10-03] MEDS: Oxycodone/Acetaminophen 5/325 mg Tab PO PRN (01:55)
[2016-10-03] MEDS: (Novolog) Insulin Aspart, Recombinant 100 u/ml 10 ml vial SC SCH ×2 (07:30→11:35)
--- NOTE | 2016-10-03 07:55 | CP.PCM.PN ---
Subjective - Date & Time of Evaluation Date of Evaluation: 10/03/16 Time of Evaluation: 07:52 - Subjective Subjective: PGY-1 note for medicine service Pt seen and examined at bedside. Pt states that he feels better today. He has no sob. He states that he slept well, no BiPAP. Denies fevers, chills, chest pain, sob, nausea or vomiting. Objective - Vital Signs/Intake and Output Vital Signs (last 24 hours): Temp Pulse Resp BP Pulse Ox 98.2 F 77 20 126/86 100 10/02/16 23:25 10/03/16 00:10 10/02/16 23:25 10/02/16 23:25 10/02/16 23:25 Intake and Output: 10/03/16 10/03/16 06:59 18:59 Intake Total 1220 Output Total 1220 Balance 0 - Medications Medications: Current Medications Aspirin (Aspirin Chewable) 81 mg PO DAILY [facility] Last Admin: 10/02/16 12:55 Dose: 81 mg Budesonide (Pulmicort Respules) 0.5 mg INH RQ12 [facility] Last Admin: 10/02/16 20:04 Dose: 0.5 mg Bumetanide (Bumex) 1 mg IVP Q12 [facility] Last Admin: 10/02/16 21:44 Dose: 1 mg Carvedilol (Coreg) 6.25 mg PO BID [facility] Last Admin: 10/02/16 17:33 Dose: 6.25 mg Enoxaparin Sodium (Lovenox) 40 mg SC DAILY [facility] Last Admin: 10/02/16 09:30 Dose: 40 mg Famotidine (Pepcid) 20 mg PO BID [facility] Last Admin: 10/02/16 17:33 Dose: 20 mg Guaifenesin/Dextromethorphan (Robitussin Dm) 5 ml PO Q4H PRN PRN Reason: Cough Last Admin: 10/02/16 13:09 Dose: 5 ml Insulin Aspart (Novolog) 0 unit SC [facility] PRN Reason: Protocol Last Admin: 10/02/16 21:26 Dose: Not Given Ipratropium [place] (Atrovent) 0.5 mg IH RQ6 PRN PRN Reason: Shortness of Breath Last Admin: 10/02/16 20:04 Dose: 0.5 mg Lisinopril (Zestril) 5 mg PO DAILY [facility] Last Admin: 10/02/16 09:28 Dose: 5 mg Lorazepam (Ativan) 2 mg IVP Q6H PRN PRN Reason: Anxiety Nitroglycerin (Nitro-Bid 2% Oint) 1 ea TOP Q6 PRN PRN Reason: Other Last Admin: 09/30/16 18:44 Dose: 1 ea Rosuvastatin Calcium (Crestor) 10 mg PO HS [facility] Last Admin: 10/02/16 21:44 Dose: 10 mg - Labs Labs: 10/02/16 07:17 10/02/16 07:17 PT 10.4 SECONDS (9.7-12.2) 09/30/16 04:52 INR 0.9 09/30/16 04:52 APTT 32 SECONDS (21-34) 09/30/16 04:52 - Constitutional Appears: Non-toxic, No Acute Distress - Head Exam Head Exam: ATRAUMATIC, NORMOCEPHALIC - ENT Exam ENT Exam: Mucous Membranes Moist - Respiratory Exam Respiratory Exam: Clear to Ausculation Bilateral, NORMAL BREATHING PATTERN. absent: Rales, Wheezes - Cardiovascular Exam Cardiovascular Exam: +S1, +S2. absent: Murmur - GI/Abdominal Exam GI & Abdominal Exam: Soft, Normal Bowel Sounds - Neurological Exam Neurological Exam: Alert, Awake - Skin Skin Exam: Dry, Warm Assessment and Plan - Assessment and Plan (Free Text) Assessment: Chest pain - Resolved now, was likely due to acute on chronic systolic heart failure exacerbation - EF of 20% with life vest on - Cardio d/c BiPAP - tolerated night well without it - BNP > 6000 on admission, now 4040 - CXR 4/ - Yarh-yt-whdibixb pulmonary vascular congestion. - Continue Coreg, lisinopril and aldactone - Cardio consult ([facility]) - Cont Bumex 2mg Q12H- dose decreased to 1mg Q12H - F/U echo- LV severely impaired, EF 25-30%, global hypokinesis - D/c duonebs - Monitor lytes - Recheck BNP and Mg tomorrow - F/U labs: - A1C: 5.2 - Lipids: wml - Thyroid panel: wnl - Serial SHANTELLE's - neg x 3 - HOB >30, I/O's and daily weights Shortness of breath/Cough -Likely due to CHF exacerbation vs COPD exacerbation -CXR - no obvious infiltrates seen - Bipap at night only -Duonebs d/c'd -Started Atrovent -Robitussion PRN -See above COPD - Atrovent - Restart home budesonide - monitor HTN -B/P 103/68 - Restart home meds - see above - Monitor and adjust as necessary Hx of diabetes - Last A1C 5.5 - repeat is 5.2 - Hold home metformin - DAV - Accuchecks Hx of HLD - Restart home crestor - Lipid panel - wnl PPX - Lovenox - Pepcid Dispo -Cont current mgmt -Wean off bipap -Monitor cough DW attending
[2016-10-03] MEDS: Budesonide 0.5 mg/2 ml Inhal Susp UD INH SCH (08:08)
[2016-10-03] MEDS: Ipratropium 0.02% Inhal Soln (0.5 mg/2.5 ml) UD IH PRN (08:08)
[2016-10-03 08:40] VITALS: BP 134/94; PULSE 72; TEMP 98.6
[2016-10-03 09:03] LABS: BASO % 0.9 % (0.0-2.0); EOS # 0.1 K/uL (0.0-0.7); EOS % 2.5 % (0.0-4.0); HEMATOCRIT 41.7 % (35.0-51.0); LYMPH # 1.4 K/uL (1.0-4.3); LYMPH % 28.5 % (20.0-40.0); MEAN CELL VOLUME 93.7 fL (80.0-94.0); MEAN CORPUSCULAR HEMOGLOBIN 30.4 pg (27.0-31.0); MEAN CORPUSCULAR HGB CONC 32.5 g/dL (33.0-37.0); MEAN PLATELET VOLUME 9.6 fL (7.2-11.7); MONO # 0.5 K/uL (0.0-0.8); MONO % 10.4 % (0.0-10.0); NRBC % 0.1 % (0.0-2.0); RED CELL DISTRIBUTION WIDTH 14.1 % (11.5-14.5); WHITE BLOOD COUNT 4.9 K/uL (4.8-10.8)
[2016-10-03 09:14] LABS: CHLORIDE 97 mmol/L (98-107)
[2016-10-03 09:15] LABS: POTASSIUM 3.7 mmol/L (3.6-5.2); SODIUM 138 mmol/L (132-148)
[2016-10-03 09:17] LABS: ALB/GLOB RATIO 1.4 (1.0-2.1); ALKALINE PHOSPHATASE 82 U/L (38-126); AST/SGOT 29 U/L (17-59); BLOOD UREA NITROGEN 21 mg/dL (9-20); CARBON DIOXIDE 26 mmol/L (22-30); GFR AFRICAN-AMERICAN > 60; GLUCOSE,RANDOM 128 mg/dL (75-110)
[2016-10-03 09:18] LABS: ALT/SGPT 27 U/L (21-72); CALCIUM 8.6 mg/dl (8.6-10.4); MAGNESIUM 1.9 mg/dL (1.6-2.3); PHOSPHOROUS 4.2 mg/dL (2.5-4.5)
[2016-10-03] MEDS ORDERED: Oxycodone/Acetaminophen 5/325 mg Tab PO PRN (09:28)
[2016-10-03] MEDS: Enoxaparin 40 mg Syringe SC SCH (09:45)
--- NOTE | 2016-10-03 11:51 | CP.PCM.PN ---
Subjective - Date & Time of Evaluation Date of Evaluation: 10/03/16 Time of Evaluation: 12:57 - Subjective Subjective: PT MUCH IMPROVED. STABLE. BP AND HR ELEVATED. Objective - Vital Signs/Intake and Output Vital Signs (last 24 hours): Temp Pulse Resp BP Pulse Ox 98.6 F 72 20 134/94 H 100 10/03/16 08:38 10/03/16 08:38 10/03/16 08:38 10/03/16 08:38 10/03/16 08:38 Intake and Output: 10/03/16 10/03/16 06:59 18:59 Intake Total 1220 Output Total 1220 Balance 0 - Medications Medications: Current Medications Aspirin (Aspirin Chewable) 81 mg PO DAILY [facility] Last Admin: 10/03/16 09:47 Dose: 81 mg Budesonide (Pulmicort Respules) 0.5 mg INH RQ12 [facility] Last Admin: 10/03/16 08:08 Dose: 0.5 mg Bumetanide (Bumex) 1 mg IVP Q12 [facility] Last Admin: 10/03/16 09:50 Dose: 1 mg Carvedilol (Coreg) 6.25 mg PO BID [facility] Last Admin: 10/03/16 09:45 Dose: 6.25 mg Enoxaparin Sodium (Lovenox) 40 mg SC DAILY [facility] Last Admin: 10/03/16 09:45 Dose: 40 mg Famotidine (Pepcid) 20 mg PO BID [facility] Last Admin: 10/03/16 09:44 Dose: 20 mg Guaifenesin/Dextromethorphan (Robitussin Dm) 5 ml PO Q4H PRN PRN Reason: Cough Last Admin: 10/02/16 13:09 Dose: 5 ml Insulin Aspart (Novolog) 0 unit SC [facility] PRN Reason: Protocol Last Admin: 10/03/16 07:30 Dose: Not Given Ipratropium [place] (Atrovent) 0.5 mg IH RQ6 PRN PRN Reason: Shortness of Breath Last Admin: 10/03/16 08:08 Dose: 0.5 mg Lisinopril (Zestril) 5 mg PO DAILY [facility] Last Admin: 10/03/16 09:45 Dose: 5 mg Lorazepam (Ativan) 2 mg IVP Q6H PRN PRN Reason: Anxiety Nitroglycerin (Nitro-Bid 2% Oint) 1 ea TOP Q6 PRN PRN Reason: Other Last Admin: 09/30/16 18:44 Dose: 1 ea Oxycodone/Acetaminophen (Percocet 5/325 Mg Tab) 2 tab PO Q6H PRN PRN Reason: Pain, severe (8-10) Stop: 10/06/16 09:29 Last Admin: 10/03/16 09:42 Dose: 2 tab Rosuvastatin Calcium (Crestor) 10 mg PO HS [facility] Last Admin: 10/02/16 21:44 Dose: 10 mg - Labs Labs: 10/03/16 08:57 10/03/16 08:57 PT 10.4 SECONDS (9.7-12.2) 09/30/16 04:52 INR 0.9 09/30/16 04:52 APTT 32 SECONDS (21-34) 09/30/16 04:52 - Constitutional Appears: Well - Head Exam Head Exam: ATRAUMATIC, NORMAL INSPECTION, NORMOCEPHALIC - Eye Exam Eye Exam: EOMI, Normal appearance, PERRL Pupil Exam: NORMAL ACCOMODATION, PERRL - ENT Exam ENT Exam: Mucous Membranes Moist, Normal Exam - Neck Exam Neck Exam: Full ROM, Normal Inspection. absent: Lymphadenopathy - Respiratory Exam Respiratory Exam: Clear to Ausculation Bilateral, NORMAL BREATHING PATTERN - Cardiovascular Exam Cardiovascular Exam: REGULAR RHYTHM, +S1, +S2. absent: Murmur - GI/Abdominal Exam GI & Abdominal Exam: Soft, Normal Bowel Sounds. absent: Tenderness - Extremities Exam Extremities Exam: Full ROM, Normal Capillary Refill, Normal Inspection. absent : Joint Swelling, Pedal Edema - Back Exam Back Exam: NORMAL INSPECTION - Neurological Exam Neurological Exam: Alert, Awake, CN II-XII Intact, Normal Gait, Oriented x3 - Psychiatric Exam Psychiatric exam: Normal Affect, Normal Mood - Skin Skin Exam: Dry, Intact, Normal Color, Warm Assessment and Plan (1) Congestive heart failure Status: Resolved (2) Dyspnea Status: Resolved (3) Respiratory distress Status: Resolved (4) Smoker Status: Active (5) Alcohol abuse Status: Acute (6) Noncompliance with medication regimen Status: Acute (7) Infestation by bed bug Status: Acute - Assessment and Plan (Free Text) Plan: INCREASED COREG TO 12.5MG PO Q12. ON D/C PLEASE GIVE PT THIS HIGHER DOSE WELL THE OTHER MEDS LISTED ABOVE, HOWEVER CHANGE BUMEX TO 1MG PO DAILY OR LASIX 60MG PO DAILY. STABLE FOR D/C
--- NOTE | 2016-10-03 15:28 | CP.PCM.DIS ---
<Amado Reid - Last Filed: 10/03/16 15:28> Provider - Provider Date of Admission: 09/30/16 05:37 Attending physician: Enrike Mccray MD Primary care physician: Rafael Consults: [place] - [place] Time Spent in preparation of Discharge (in minutes): 31 Hospital Course - Lab Results Lab Results: Most Recent Lab Values WBC 4.9 K/uL (4.8-10.8) 10/03/16 08:57 RBC 4.45 Mil/uL (4.40-5.90) 10/03/16 08:57 Hgb 13.5 g/dL (12.0-18.0) D 10/03/16 08:57 Hct 41.7 % (35.0-51.0) 10/03/16 08:57 MCV 93.7 fL (80.0-94.0) 10/03/16 08:57 MCH 30.4 pg (27.0-31.0) 10/03/16 08:57 MCHC 32.5 g/dL (33.0-37.0) L 10/03/16 08:57 RDW 14.1 % (11.5-14.5) 10/03/16 08:57 Plt Count 231 K/uL (130-400) 10/03/16 08:57 MPV 9.6 fL (7.2-11.7) 10/03/16 08:57 Neut % (Auto) 57.7 % (50.0-75.0) 10/03/16 08:57 Lymph % (Auto) 28.5 % (20.0-40.0) 10/03/16 08:57 [place] % (Auto) 10.4 % (0.0-10.0) H 10/03/16 08:57 Eos % (Auto) 2.5 % (0.0-4.0) 10/03/16 08:57 Baso % (Auto) 0.9 % (0.0-2.0) 10/03/16 08:57 Neut # 2.9 K/uL (1.8-7.0) 10/03/16 08:57 Lymph # 1.4 K/uL (1.0-4.3) 10/03/16 08:57 [place] # 0.5 K/uL (0.0-0.8) 10/03/16 08:57 Eos # 0.1 K/uL (0.0-0.7) 10/03/16 08:57 Baso # 0.0 K/uL (0.0-0.2) 10/03/16 08:57 PT 10.4 SECONDS (9.7-12.2) 09/30/16 04:52 INR 0.9 09/30/16 04:52 APTT 32 SECONDS (21-34) 09/30/16 04:52 Puncture Site Rr 09/30/16 05:03 pCO2 39 mm/Hg (35-45) 09/30/16 05:03 pO2 440 mm/Hg (80-100) H 09/30/16 05:03 HCO3 19.8 mmol/L (21-28) L 09/30/16 05:03 ABG pH 7.30 (7.35-7.45) L 09/30/16 05:03 ABG Total CO2 20.4 mmol/L (22-28) L 09/30/16 05:03 ABG O2 Saturation 99.1 % (95-98) H 09/30/16 05:03 ABG Base Excess -6.7 mmol/L (-2.0-3.0) L 09/30/16 05:03 Johan Test Pos 09/30/16 05:03 ABG Potassium 4.2 mmol/L (3.6-5.2) 09/30/16 05:03 A-a O2 Difference 224.0 mm/Hg 09/30/16 05:03 Respiratory Index 0.5 09/30/16 05:03 Sodium 136.0 mmol/l (132-148) 09/30/16 05:03 Chloride 110.0 mmol/L (98-107) H 09/30/16 05:03 Glucose 285 mg/dl (75-110) H 09/30/16 05:03 Lactate 1.5 mmol/L (0.7-2.1) 09/30/16 05:03 FiO2 100.0 % 09/30/16 05:03 Inspiratory BiPAP 10 09/30/16 05:03 Expiratory BiPAP 5 09/30/16 05:03 Sodium 138 mmol/L (132-148) 10/03/16 08:57 Potassium 3.7 mmol/L (3.6-5.2) 10/03/16 08:57 Chloride 97 mmol/L (98-107) L 10/03/16 08:57 Carbon Dioxide 26 mmol/L (22-30) 10/03/16 08:57 Anion Gap 19 (10-20) 10/03/16 08:57 BUN 21 mg/dL (9-20) H 10/03/16 08:57 Creatinine 1.1 MG/DL (0.8-1.5) 10/03/16 08:57 Est GFR ( Amer) > 60 10/03/16 08:57 Est GFR (Non-Af Amer) > 60 10/03/16 08:57 POC Glucose (mg/dL) 167 mg/dL (65-110) H 10/03/16 11:14 Random Glucose 128 mg/dL (75-110) H 10/03/16 08:57 Hemoglobin A1c 5.2 % (4.2-6.5) 09/30/16 04:50 Calcium 8.6 mg/dl (8.6-10.4) 10/03/16 08:57 Phosphorus 4.2 mg/dL (2.5-4.5) 10/03/16 08:57 Magnesium 1.9 mg/dL (1.6-2.3) 10/03/16 08:57 Total Bilirubin 1.0 mg/dL (0.2-1.3) 10/03/16 08:57 AST 29 U/L (17-59) 10/03/16 08:57 ALT 27 U/L (21-72) 10/03/16 08:57 Alkaline Phosphatase 82 U/L (38-126) 10/03/16 08:57 Total Creatine Kinase 50 U/L (55-170) L 10/01/16 02:07 CK-MB (Mass) 0.74 ng/mL (0.0-3.38) 10/01/16 02:07 Troponin I 0.0640 ng/mL (0.00-0.120) 09/30/16 04:52 Troponin I, Quant 0.0470 ng/mL (0.00-0.120) 10/01/16 02:07 NT-Pro-B Natriuret Pep 2590 pg/mL (0-900) H 10/03/16 08:57 Total Protein 8.0 g/dL (6.3-8.3) 10/03/16 08:57 Albumin 4.7 g/dL (3.5-5.0) 10/03/16 08:57 Globulin 3.3 gm/dL (2.2-3.9) 10/03/16 08:57 Albumin/Globulin Ratio 1.4 (1.0-2.1) 10/03/16 08:57 Triglycerides 80 mg/dL (0-149) 09/30/16 08:19 Cholesterol 137 mg/dL (0-199) 09/30/16 08:19 LDL Cholesterol Direct 35 mg/dL (0-129) 09/30/16 08:19 HDL Cholesterol 78 mg/dL (30-70) H 09/30/16 08:19 Free T4 0.95 ng/dL (0.78-2.19) 09/30/16 08:53 Thyroxine (T4) Cancelled 09/30/16 04:52 TSH 3rd Generation 0.47 mIU/L (0.46-4.68) 09/30/16 08:19 Arterial Blood Potassium 4.2 mmol/L (3.6-5.2) 09/30/16 05:03 Urine Color Straw (YELLOW) 09/30/16 05:23 Urine Clarity Clear (Clear) 09/30/16 05:23 Urine pH 6.0 (5.0-8.0) 09/30/16 05:23 Ur Specific [place] 1.005 (1.003-1.030) 09/30/16 05:23 Urine Protein 2+ mg/dL (NEGATIVE) H 09/30/16 05:23 Urine Glucose (UA) Normal mg/dL (Normal) 09/30/16 05:23 Urine Ketones Negative mg/dL (NEGATIVE) 09/30/16 05:23 Urine Blood Negative (NEGATIVE) 09/30/16 05:23 Urine Nitrate Negative (NEGATIVE) 09/30/16 05:23 Urine Bilirubin Negative (NEGATIVE) 09/30/16 05:23 Urine Urobilinogen Normal mg/dL (0.2-1.0) 09/30/16 05:23 Ur Leukocyte Esterase Neg Ying/uL (Negative) 09/30/16 05:23 Urine WBC (Auto) < 1 /hpf (0-5) 09/30/16 05:23 Urine RBC (Auto) 1 /hpf (0-3) 09/30/16 05:23 Ur Squamous Epith Cells < 1 /hpf (0-5) 09/30/16 05:23 Urine Bacteria Rare (<OCC) 09/30/16 05:23 Hyaline Casts 6-10 /lpf (0-2) H 09/30/16 05:23 Serum Ketones Negative (NEGATIVE) 09/30/16 04:52 - Hospital Course Hospital Course: On hospital admission This is a 56 y/o M with a PMH of CHF, HTN, diabetes, arthritis, pancreatitis, hyperlipidemia and ETOH abuse presents to the ED because he had chest pain and SOB since yesterday. Pt states that he noticed that while walking to the store he was not able to ambulate for more than 2 minutes without having to stop to catch his breath. He states that he was fine at rest up until early this morning (~01:00), it became too much and he came in to the ED. Pt reports that he has missed some of his home medication doses due to new social stressors which he did not want to talk about. He states that his chest feels heavy and he has palpitations. Pt states that this is the same feeling he has for prior admission with CHF exacerbation. He admits to orthopnea and palpitations as well. Denies any fevers, chills, nausea, vomiting, headaches, LOC, dizziness, numbness or tingling. On hospital course Pt was admitted with sob secondary to an acute exacerbation of his chronic systolic heart failure. He has a known EF of less than 30% and has life vest on. Pt was placed on BiPAP for comfort and diuresed. Pt was worked up for any ACS, which included serial SHANTELLE's EKGs, labs and was negative. CXR revealed some vasular congestion. Cariology was consulted and pt underwent a repeat echocardiogram which corroborated previous echocardiogram. He was taken off of lasix by cardio and placed on Bumex and his Coreg was increased. The pt progressively improved and was discharged in stable condition on the following new medications: Bumetanide [Bumex] 1 mg PO DAILY #30 tab Carvedilol [Coreg] 12.5 mg PO BID #60 tab guaiFENesin/Dextromethorphan [guaiFENesin-DM] 10 ml PO Q6H #1 bottle Percocet 5/325 #5 tabs PRN back pain Instructed to resume the following home medications and to follow up with his PCP, Dr Hall within 1 week: Crestor ASA Pulmicort Lisinopril Metformin Albuterol inhaler Diagnoses Acute on chronic systolic heart failure Back pain Cough Diabetes Mellitus Hypertension This is a summary of hospital course, please see EMR for further details. - Date & Time of H&P Date of H&P: 09/30/16 Time of H&P: 06:28 Discharge Exam - Head Exam Head Exam: ATRAUMATIC, NORMAL INSPECTION, NORMOCEPHALIC - Eye Exam Eye Exam: Normal appearance Pupil Exam: PERRL - Respiratory Exam Respiratory Exam: Clear to PA & Lateral, UNREMARKABLE - Cardiovascular Exam Cardiovascular Exam: +S1, +S2 - GI/Abdominal Exam GI & Abdominal Exam: Normal Bowel Sounds, Unremarkable - Neurological Exam Neurological exam: Alert, Oriented x3 - Skin Skin Exam: Dry, Warm Discharge Plan - Discharge Medications Prescriptions: Bumetanide [Bumex] 1 mg PO DAILY #30 tab Carvedilol [Coreg] 12.5 mg PO BID #60 tab guaiFENesin/Dextromethorphan [guaiFENesin-DM] 10 ml PO Q6H #1 bottle - Follow Up Plan Condition: GUARDED Disposition: HOME/ ROUTINE Instructions: Bumetanide (By mouth), Dextromethorphan (By mouth), Carvedilol ( By mouth), Heart Failure (DC), Chest Pain (DC), Pulmonary Edema (DC), How to Stop Smoking (DC), Heart Healthy Diet (DC), Cigarette Smoking and Your Health ( GEN), Diabetic Foot Care (DC), Basic Carbohydrate Counting (DC), Meal Planning with the Plate Method (DC), Meal Planning with Diabetes Exchanges (DC) Additional Instructions: Pt needs to discontinue taking his home medication of Lasix and begin new precription for Bumex. Pt should follow up with the clinic within 1 week. Referrals: [facility] at [facility] [Outside] <Jason Dunbar - Last Filed: 11/13/16 15:15> Provider - Provider Date of Admission: 09/30/16 05:37 Attending physician: Enrike Mccray MD Time Spent in preparation of Discharge (in minutes): 35 Hospital Course - Lab Results Lab Results: Most Recent Lab Values WBC 4.9 K/uL (4.8-10.8) 10/03/16 08:57 RBC 4.45 Mil/uL (4.40-5.90) 10/03/16 08:57 Hgb 13.5 g/dL (12.0-18.0) D 10/03/16 08:57 Hct 41.7 % (35.0-51.0) 10/03/16 08:57 MCV 93.7 fL (80.0-94.0) 10/03/16 08:57 MCH 30.4 pg (27.0-31.0) 10/03/16 08:57 MCHC 32.5 g/dL (33.0-37.0) L 10/03/16 08:57 RDW 14.1 % (11.5-14.5) 10/03/16 08:57 Plt Count 231 K/uL (130-400) 10/03/16 08:57 MPV 9.6 fL (7.2-11.7) 10/03/16 08:57 Neut % (Auto) 57.7 % (50.0-75.0) 10/03/16 08:57 Lymph % (Auto) 28.5 % (20.0-40.0) 10/03/16 08:57 [place] % (Auto) 10.4 % (0.0-10.0) H 10/03/16 08:57 Eos % (Auto) 2.5 % (0.0-4.0) 10/03/16 08:57 Baso % (Auto) 0.9 % (0.0-2.0) 10/03/16 08:57 Neut # 2.9 K/uL (1.8-7.0) 10/03/16 08:57 Lymph # 1.4 K/uL (1.0-4.3) 10/03/16 08:57 [place] # 0.5 K/uL (0.0-0.8) 10/03/16 08:57 Eos # 0.1 K/uL (0.0-0.7) 10/03/16 08:57 Baso # 0.0 K/uL (0.0-0.2) 10/03/16 08:57 PT 10.4 SECONDS (9.7-12.2) 09/30/16 04:52 INR 0.9 09/30/16 04:52 APTT 32 SECONDS (21-34) 09/30/16 04:52 Puncture Site Rr 09/30/16 05:03 pCO2 39 mm/Hg (35-45) 09/30/16 05:03 pO2 440 mm/Hg (80-100) H 09/30/16 05:03 HCO3 19.8 mmol/L (21-28) L 09/30/16 05:03 ABG pH 7.30 (7.35-7.45) L 09/30/16 05:03 ABG Total CO2 20.4 mmol/L (22-28) L 09/30/16 05:03 ABG O2 Saturation 99.1 % (95-98) H 09/30/16 05:03 ABG Base Excess -6.7 mmol/L (-2.0-3.0) L 09/30/16 05:03 Johan Test Pos 09/30/16 05:03 ABG Potassium 4.2 mmol/L (3.6-5.2) 09/30/16 05:03 A-a O2 Difference 224.0 mm/Hg 09/30/16 05:03 Respiratory Index 0.5 09/30/16 05:03 Sodium 136.0 mmol/l (132-148) 09/30/16 05:03 Chloride 110.0 mmol/L (98-107) H 09/30/16 05:03 Glucose 285 mg/dl (75-110) H 09/30/16 05:03 Lactate 1.5 mmol/L (0.7-2.1) 09/30/16 05:03 FiO2 100.0 % 09/30/16 05:03 Inspiratory BiPAP 10 09/30/16 05:03 Expiratory BiPAP 5 09/30/16 05:03 Sodium 138 mmol/L (132-148) 10/03/16 08:57 Potassium 3.7 mmol/L (3.6-5.2) 10/03/16 08:57 Chloride 97 mmol/L (98-107) L 10/03/16 08:57 Carbon Dioxide 26 mmol/L (22-30) 10/03/16 08:57 Anion Gap 19 (10-20) 10/03/16 08:57 BUN 21 mg/dL (9-20) H 10/03/16 08:57 Creatinine 1.1 MG/DL (0.8-1.5) 10/03/16 08:57 Est GFR ( Amer) > 60 10/03/16 08:57 Est GFR (Non-Af Amer) > 60 10/03/16 08:57 POC Glucose (mg/dL) 167 mg/dL (65-110) H 10/03/16 11:14 Random Glucose 128 mg/dL (75-110) H 10/03/16 08:57 Hemoglobin A1c 5.2 % (4.2-6.5) 09/30/16 04:50 Calcium 8.6 mg/dl (8.6-10.4) 10/03/16 08:57 Phosphorus 4.2 mg/dL (2.5-4.5) 10/03/16 08:57 Magnesium 1.9 mg/dL (1.6-2.3) 10/03/16 08:57 Total Bilirubin 1.0 mg/dL (0.2-1.3) 10/03/16 08:57 AST 29 U/L (17-59) 10/03/16 08:57 ALT 27 U/L (21-72) 10/03/16 08:57 Alkaline Phosphatase 82 U/L (38-126) 10/03/16 08:57 Total Creatine Kinase 50 U/L (55-170) L 10/01/16 02:07 CK-MB (Mass) 0.74 ng/mL (0.0-3.38) 10/01/16 02:07 Troponin I 0.0640 ng/mL (0.00-0.120) 09/30/16 04:52 Troponin I, Quant 0.0470 ng/mL (0.00-0.120) 10/01/16 02:07 NT-Pro-B Natriuret Pep 2590 pg/mL (0-900) H 10/03/16 08:57 Total Protein 8.0 g/dL (6.3-8.3) 10/03/16 08:57 Albumin 4.7 g/dL (3.5-5.0) 10/03/16 08:57 Globulin 3.3 gm/dL (2.2-3.9) 10/03/16 08:57 Albumin/Globulin Ratio 1.4 (1.0-2.1) 10/03/16 08:57 Triglycerides 80 mg/dL (0-149) 09/30/16 08:19 Cholesterol 137 mg/dL (0-199) 09/30/16 08:19 LDL Cholesterol Direct 35 mg/dL (0-129) 09/30/16 08:19 HDL Cholesterol 78 mg/dL (30-70) H 09/30/16 08:19 Free T4 0.95 ng/dL (0.78-2.19) 09/30/16 08:53 Thyroxine (T4) Cancelled 09/30/16 04:52 TSH 3rd Generation 0.47 mIU/L (0.46-4.68) 09/30/16 08:19 Arterial Blood Potassium 4.2 mmol/L (3.6-5.2) 09/30/16 05:03 Urine Color Straw (YELLOW) 09/30/16 05:23 Urine Clarity Clear (Clear) 09/30/16 05:23 Urine pH 6.0 (5.0-8.0) 09/30/16 05:23 Ur Specific [place] 1.005 (1.003-1.030) 09/30/16 05:23 Urine Protein 2+ mg/dL (NEGATIVE) H 09/30/16 05:23 Urine Glucose (UA) Normal mg/dL (Normal) 09/30/16 05:23 Urine Ketones Negative mg/dL (NEGATIVE) 09/30/16 05:23 Urine Blood Negative (NEGATIVE) 09/30/16 05:23 Urine Nitrate Negative (NEGATIVE) 09/30/16 05:23 Urine Bilirubin Negative (NEGATIVE) 09/30/16 05:23 Urine Urobilinogen Normal mg/dL (0.2-1.0) 09/30/16 05:23 Ur Leukocyte Esterase Neg Ying/uL (Negative) 09/30/16 05:23 Urine WBC (Auto) < 1 /hpf (0-5) 09/30/16 05:23 Urine RBC (Auto) 1 /hpf (0-3) 09/30/16 05:23 Ur Squamous Epith Cells < 1 /hpf (0-5) 09/30/16 05:23 Urine Bacteria Rare (<OCC) 09/30/16 05:23 Hyaline Casts 6-10 /lpf (0-2) H 09/30/16 05:23 Serum Ketones Negative (NEGATIVE) 09/30/16 04:52 Attending/Attestation - Attestation I have personally seen and examined this patient.: Yes I have fully participated in the care of the patient.: Yes I have reviewed all pertinent clinical information, including history, physical exam and plan: Yes Notes (Text): Patient seen and examined with the resident. Agree with the resident's evaluation, assessment and plan. Pt was admitted with sob secondary to an acute exacerbation of his chronic systolic heart failure. He has a known EF of less than 30% and has life vest on.
--- NOTE | 2016-10-03 15:34 | PCM.HF ---
Heart Failure Core Measure - Heart Failure Ejection Fraction: Less Than 40 % Left Ventricular Function to be assessed after discharge: No YUMIKO Inhibitor Prescribed: Yes Beta-Fred Prescribed: Carvedilol Implantable Cardioverter Defibrillator Therapy: No Contraindication/Reason for not providing: THE FASHIONt
== END 2016-10-03 14:38 | disposition home or self-care (01) | DRG 293 ==
LOC: C.ER 04:26 → C.9E 05:37 → C.6T 14:57
PROVIDERS: ADMIT Family Medicine; ATTEND Family Medicine
PROC: 5A09457 Assistance with Respiratory Ventilation, 24-96 Consecutive Hours, Continuous Positive Airway Pressure (ICD-10-PCS; principal; 2016-09-30)
DX: I11.0 Hypertensive heart disease with heart failure (principal); J44.9 Chronic obstructive pulmonary disease, unspecified; I50.23 Acute on chronic systolic (congestive) heart failure; J45.909 Unspecified asthma, uncomplicated; E11.9 Type 2 diabetes mellitus without complications; M19.90 Unspecified osteoarthritis, unspecified site; F10.10 Alcohol abuse, uncomplicated; R00.0 Tachycardia, unspecified; R06.00 Dyspnea, unspecified; R07.9 Chest pain, unspecified; E78.5 Hyperlipidemia, unspecified; F17.210 Nicotine dependence, cigarettes, uncomplicated; Z96.651 Presence of right artificial knee joint; Z79.84 Long term (current) use of oral hypoglycemic drugs

== ENCOUNTER 2017-01-16 18:58 | Observation (INO) | payer MEDICARE ==
[2017-01-16 19:04] VITALS: BMI 25.6
--- NOTE | 2017-01-16 20:18 | C.PDOC ---
History Of Present Illness Patient presents to the ER with a complaint of SOB and right sided rib pain that worsens with movement, coughing, and breathing over the past 3 days. Patient has a PMHx of HTN, CHF, and diabetes; he also reports having a pacemaker placed in October. Denies chest pain, abdominal pain, fever, or chills. Time Seen by Provider: 01/16/17 20:18 Chief Complaint (Nursing): Shortness Of Breath History Per: Patient History/Exam Limitations: no limitations Onset/Duration Of Symptoms: Days (2-3) Initiating Event: Other (Not Known) Exacerbating Factor(s): Coughing, Other (Breathing. Movement.) Associated Symptoms: denies: Fever, Chills, Chest Pain, Other (Abdominal pain) Recent travel outside of the [place]: No Past Medical History Reviewed: Historical Data, Nursing Documentation, Vital Signs Vital Signs: Last Vital Signs Temp 98.5 F 01/16/17 21:19 Pulse 98 H 01/16/17 21:19 Resp 29 H 01/16/17 21:19 BP 132/91 H 01/16/17 21:19 Pulse Ox 99 01/16/17 21:19 - Medical History PMH: Arthritis (R KNEE TKR), Asthma, CHF, COPD, Diabetes, HTN, Hypercholesterolemia, Hyperlipidemia, Pancreatitis Surgical History: Pacemaker - [facility] Procedures ALCOHOL DETOXIFICATION (08/20/13) ASSISTANCE WITH RESPIRATORY VENTILATION, 24-96 HRS, CPAP (09/30/16) INJECT/INFUSE NEC (08/17/13) MEASURE OF CARDIAC SAMPL & PRESSURE, L HEART, PERC APPROACH (05/20/16) PLAIN RADIOGRAPHY OF LEFT HEART USING LOW OSMOLAR CONTRAST (05/20/16) PLAIN RADIOGRAPHY OF THORACIC AORTA USING L OSM CONTRAST (05/20/16) Family History: States: Unknown Family Hx - Social History Hx Tobacco Use: Yes Hx Alcohol Use: Yes (beer daily) Hx Substance Use: No - Immunization History Hx Tetanus Toxoid Vaccination: No Hx Influenza Vaccination: No Hx Pneumococcal Vaccination: No Review Of Systems Constitutional: Negative for: Fever, Chills Cardiovascular: Negative for: Chest Pain Respiratory: Positive for: Shortness of Breath Gastrointestinal: Negative for: Abdominal Pain Musculoskeletal: Positive for: Other (Right rib pain) Physical Exam - Physical Exam Appears: Non-toxic Skin: Warm, Dry Oral Mucosa: Moist Teeth: Other (Poor dentition) Chest: Symmetrical, No Tenderness Cardiovascular: Rhythm Regular, No Murmur Respiratory: Rales (Right, lateral posterior aspect.), No Rhonchi, No Wheezing Gastrointestinal/Abdominal: Soft, Tenderness (Mildly diffuse), Distention, No Guarding, No Rebound, Other (Midline hernia) Extremity: Pedal Edema (Mild), No Deformity, No Swelling, Other (Poor nails) Neurological/Psych: Oriented x3 ED Course And Treatment - Laboratory Results Result Diagrams: 01/16/17 14:48 01/16/17 14:48 ECG: Interpreted By Me, Viewed By Me ECG Rhythm: Sinus Rhythm (104), ST/T Changes (lat ischemic changes), Nonspecific Changes O2 Sat by Pulse Oximetry: 99 (Room air) Pulse Ox Interpretation: Normal - Radiology CXR: Interpreted by Me, Viewed By Me CXR Interpretation: Yes: Other (pacer left). No: Infiltrates, Fracture, Pnemothorax Progress Note: Blood work, EKG, CXR, and urinalysis ordered. Disposition Discussed With Dr.: Adrien Mariano Comment: accepted the pt on his service and took over the care at 10 PM Doctor Will See Patient In The: Hospital Counseled Patient/Family Regarding: Studies Performed, Diagnosis - Disposition Disposition: HOSPITALIZED Disposition Time: 20:18 Condition: FAIR - Clinical Impression Clinical Impression: Dyspnea, Chest pain, Chest pain - Scribe Statement The provider has reviewed the documentation as recorded by the Scribnader Osuna All medical record entries made by the Scribe were at my direction and personally dictated by me. I have reviewed the chart and agree that the record accurately reflects my personal performance of the history, physical exam, medical decision making, and the department course for this patient. I have also personally directed, reviewed, and agree with the discharge instructions and disposition. Decision To Admit - Pt Status Changed To: Hospital Disposition Of: Observation - . Bed Request Type: Telemetry Admitting Physician: Adrien Mariano Patient Diagnosis: Dyspnea, Chest pain, Chest pain
[2017-01-16 20:40] LABS: BASO % 0.4 % (0.0-2.0); EOS # 0.1 K/uL (0.0-0.7); EOS % 1.6 % (0.0-4.0); HEMOGLOBIN 12.7 g/dL (12.0-18.0); LYMPH # 1.5 K/uL (1.0-4.3); LYMPH % 25.4 % (20.0-40.0); MEAN CELL VOLUME 94.7 fL (80.0-94.0); MEAN CORPUSCULAR HEMOGLOBIN 31.3 pg (27.0-31.0); MEAN PLATELET VOLUME 8.9 fL (7.2-11.7); MONO # 0.9 K/uL (0.0-0.8); MONO % 15.8 % (0.0-10.0); NEUT # 3.4 K/uL (1.8-7.0); NEUT % 56.8 % (50.0-75.0); RBC 4.06 Mil/uL (4.40-5.90); RED CELL DISTRIBUTION WIDTH 15.1 % (11.5-14.5); WHITE BLOOD COUNT 5.9 K/uL (4.8-10.8)
[2017-01-16 20:47] LABS: VENOUS BLOOD GAS BASE EXCESS -2.1 mmol/L (0.0-2.0); VENOUS BLOOD GAS PCO2 49 mmHg (40-60); VENOUS BLOOD GAS PO2 32 mm/Hg (30-55); VENOUS BLOOD PH 7.31 (7.32-7.43)
[2017-01-16 20:49] LABS: INR 0.9; PROTHROMBIN TIME 10.3 SECONDS (9.7-12.2)
[2017-01-16 21:01] LABS: SQUAMOUS EPITHIAL < 1 /hpf (0-5); URINE BACTERIA RARE (<OCC); URINE BILIRUBIN NEGATIVE (NEGATIVE); URINE BLOOD NEGATIVE (NEGATIVE); URINE CLARITY Clear (Clear); URINE COLOR Straw (YELLOW); URINE GLUCOSE (UA) NORMAL (Normal); URINE LEUKOCYTE ESTERASE NEG Leu/uL (Negative); URINE NITRATE NEGATIVE (NEGATIVE); URINE PROTEIN 1+ mg/dL (NEGATIVE); URINE UROBILINOGEN NORMAL mg/dL (0.2-1.0)
[2017-01-16 21:07] LABS: ALBUMIN 3.9 g/dL (3.5-5.0)
[2017-01-16 21:09] LABS: GFR AFRICAN-AMERICAN > 60; GFR NON-AFRICAN AMERICAN > 60
[2017-01-16 21:10] LABS: ALT/SGPT 80 U/L (21-72); AST/SGOT 96 U/L (17-59); BLOOD UREA NITROGEN 15 mg/dL (9-20)
[2017-01-16 21:16] LABS: B-TYPE NATRIURETIC PEPTIDE 1600 pg/mL (0-900)
[2017-01-16] MEDS ORDERED: Piperacillin/Tazobact 3.375 gm 100 ML IVPB STA (22:10)
[2017-01-16] MEDS ORDERED: Piperacillin/Tazobact 3.375 gm 100 ML IVPB ONE (22:37)
[2017-01-16 22:38] LABS: LIPASE 32 U/L (23-300)
[2017-01-16] MEDS ORDERED: Nitroglycerin 2% Ointment Foilpak UD TOP STA (23:00)
[2017-01-16] MEDS ORDERED: Nitroglycerin 2% Ointment Foilpak UD TOP ONE (23:05)
--- NOTE | 2017-01-16 23:44 | CP.PCM.HP ---
History of Present Illness - History of Present Illness History of Present Illness: CC:right sided chest wall pain Patient is a middle aged AA male with h/o cardiomyopathy, hyperlipidemia ,CHF , presents to the ER with a complaint of SOB and right sided rib pain intemse 04/09, that worsens with movement, coughing, and breathing over the past 3 days. Patient has a PMHx of HTN, CHF, and diabetes; he also reports having a pacemaker placed in October. Denies chest pain, abdominal pain, fever, h/o injury or chills.pt has dry cough, no hemoptysis. His alcohol levels was close to toxic, so pt seem in alcohol withdrawal although he denies drinking Present on Admission - Present on Admission Any Indicators Present on Admission: Yes Review of Systems - Review of Systems Systems not reviewed;Unavailable: Acuity of Condition, Intoxicated - Constitutional Constitutional: Fatigue, Lethargy - Cardiovascular Cardiovascular: Chest Pain, Chest Pain at Rest, Chest Pain with Activity, Dyspnea on Exertion - Respiratory Respiratory: Cough. absent: As Per HPI, Dyspnea, Hemoptysis, Dyspnea on Exertion, Wheezing, Snoring, Stridor, Pain on Inspiration, Chest Congestion, Excessive Mucous Production, Change in Mucous Color, Pain with Coughing, Other - Gastrointestinal Gastrointestinal: absent: As Per HPI, Abdominal Pain, Belching, Bloating, Change in Bowel Habits, Change in Stool Character, Coffee Ground Emesis, Constipation, Cramping, Diarrhea, Dyspepsia, Dysphagia, Early Satiety, Excessive Flatus, Fecal Incontinence, Heartburn, Hematemesis, Hematochezia, Loose Stools, Melena, Nausea, Odynophagia, Temesmus, Vomiting, Other - Genitourinary Genitourinary: absent: As Per HPI, Change in Urinary Stream, Difficulty Urinating, Dysuria, Flank Pain, Hematuria, Pyuria, Nocturia, Urinary Incontinence, Urinary Frequency, Urinary Hesitance, Urinary Urgency, Voiding Freq/Small Amts, Freq UTI, Hx Renal/Bladder Calculi, Hx /Renal Surgery, Bladder Distension, Other Past Patient History - Infectious Disease Hx of Infectious Diseases: None - Tetanus Immunizations Tetanus Immunization: Unknown - Past Medical History & Family History Past Medical History?: Yes - Past Social History Smoking Status: Light Smoker < 10 Cigarettes Daily - CARDIAC Hx Congestive Heart Failure: Yes Hx Hypercholesterolemia: Yes Hx Hypertension: Yes Hx Pacemaker: Yes - PULMONARY Hx Asthma: Yes Hx Chronic Obstructive Pulmonary Disease (COPD): Yes - NEUROLOGICAL Hx Transient Ischemic Attacks (TIA): No - HEENT Hx HEENT Problems: No - RENAL Hx Chronic Kidney Disease: No - ENDOCRINE/METABOLIC Hx Endocrine Disorders: Yes Hx Diabetes Mellitus Type 2: Yes - HEMATOLOGICAL/ONCOLOGICAL Hx Blood Disorders: No - INTEGUMENTARY Hx Dermatological Problems: No - MUSCULOSKELETAL/RHEUMATOLOGICAL Hx Arthritis: Yes (R KNEE TKR) - GASTROINTESTINAL Hx Pancreatitis: Yes - GENITOURINARY/GYNECOLOGICAL Hx Genitourinary Disorders: No - PSYCHIATRIC Hx Substance Use: No - SURGICAL HISTORY Hx Surgeries: Yes Hx Orthopedic Surgery: Yes (RIGHT KNEE [id number]) - ANESTHESIA Hx Anesthesia: Yes Hx Anesthesia Reactions: No Hx Malignant Hyperthermia: No Meds Home Medications: Home Medication List Medication Instructions Recorded Confirmed Type Furosemide [Lasix] 20 mg PO DAILY #30 tab 01/18/17 Rx Lidocaine 5% [Lidoderm] 1 ea TD DAILY #10 patch 01/18/17 Rx Lisinopril [Zestril] 2.5 mg PO DAILY #30 tab 01/18/17 Rx Allergies/Adverse Reactions: Allergies Allergy/AdvReac Type Severity Reaction Status Date / Time No Known Allergies Allergy Verified 01/16/17 19:04 Physical Exam - Constitutional Appears: No Acute Distress - Head Exam Head Exam: ATRAUMATIC, NORMAL INSPECTION, NORMOCEPHALIC - Eye Exam Eye Exam: EOMI, Normal appearance, PERRL Pupil Exam: NORMAL ACCOMODATION, PERRL - Respiratory Exam Respiratory Exam: Clear to Auscultation Bilateral, NORMAL BREATHING PATTERN - Cardiovascular Exam Cardiovascular Exam: REGULAR RHYTHM Additional comments: chest wall tenderness Results - Vital Signs Recent Vital Signs: Last Vital Signs Temp 98.5 F 01/16/17 21:19 Pulse 102 H 01/16/17 23:25 Resp 24 01/16/17 23:25 BP 124/87 01/16/17 23:25 Pulse Ox 98 01/16/17 23:25 - Labs Result Diagrams: 01/16/17 14:48 01/16/17 14:48 Assessment & Plan (1) Alcohol abuse Status: Acute (2) CHF (congestive heart failure) Status: Acute (3) COPD (chronic obstructive pulmonary disease) Status: Acute (4) Chest pain Status: Acute
[2017-01-17 04:46] LABS: CK-MB 0.83 ng/mL (0.0-3.38)
--- NOTE | 2017-01-17 08:37 | RAD ---
PROCEDURE: CHEST RADIOGRAPH, 1 VIEW. Portable study 20:34. HISTORY: SOB COMPARISON: 09/30/2016 FINDINGS: LUNGS: Linear basilar atelectasis. PLEURA: No pneumothorax or pleural fluid seen. CARDIOVASCULAR: No radiographic findings to suggest acute or significant cardiovascular disease. Position/ configuration of pacemaker device: Satisfactory. OSSEOUS STRUCTURES: No significant abnormalities. VISUALIZED UPPER ABDOMEN: Normal. OTHER FINDINGS: None. IMPRESSION: Lower lobe atelectasis, mild. No preliminary report provided by emergency department personnel.
[2017-01-17] MEDS: Enoxaparin 40 mg Syringe SC SCH (10:41)
[2017-01-17 12:47] LABS: CK-MB 0.67 ng/mL (0.0-3.38)
--- NOTE | 2017-01-17 12:56 | CP.PCM.PN ---
Subjective - Date & Time of Evaluation Date of Evaluation: 01/17/17 Time of Evaluation: 12:56 - Subjective Subjective: PT SEEN BY DR. HUTTON THIS AFTERNOON AND CLEARED FOR D/C HOME TODAY. SEEN BY DR. HARMON THIS MORNING AND ALSO CLEARED FOR D/C. PT STILL C/O RIGHT SIDED RIB PAIN THAT IS TENDER TO TOUCH. WILL ORDER LIDOCAINE TD TODAY. PT TO BE D/C TOMORROW WITH RX FOR LIDO IF PAIN RELIEVED. DR. HUTTON AWARE AND HE IS OK W PLAN. [employer]ER WILL RE-EVAL PT TOMORROW. Objective - Vital Signs/Intake and Output Vital Signs (last 24 hours): Temp Pulse Resp BP Pulse Ox 98.1 F 97 H 19 121/91 H 98 01/17/17 08:23 01/17/17 08:23 01/17/17 08:23 01/17/17 10:40 01/17/17 08:23 Intake and Output: 01/17/17 01/17/17 06:59 18:59 Output Total 1700 Balance -1700 - Medications Medications: Current Medications Aspirin (Aspirin Chewable) 81 mg PO DAILY [facility] Last Admin: 01/17/17 10:40 Dose: 81 mg Bupropion HCl (Wellbutrin) 75 mg PO BID [facility] Last Admin: 01/17/17 10:40 Dose: 75 mg Carvedilol (Coreg) 12.5 mg PO BID [facility] Last Admin: 01/17/17 10:40 Dose: 12.5 mg Clonazepam (Klonopin) 1 mg PO BID PRN PRN Reason: Anxiety Enoxaparin Sodium (Lovenox) 40 mg SC DAILY [facility] Last Admin: 01/17/17 10:41 Dose: 40 mg Furosemide (Lasix) 20 mg PO DAILY [facility] Last Admin: 01/17/17 10:40 Dose: 20 mg Lisinopril (Zestril) 2.5 mg PO DAILY [facility] Last Admin: 01/17/17 10:40 Dose: 2.5 mg Metformin HCl (Glucophage) 500 mg PO BID [facility] Last Admin: 01/17/17 10:40 Dose: 500 mg Pneumococcal Polyvalent Vaccine (Pneumovax 23 Vaccine) 0.5 ml IM .ONCE ONE Stop: 01/19/17 10:01 Quetiapine Fumarate (Seroquel) 400 mg PO DAILY [facility] Last Admin: 01/17/17 10:40 Dose: 400 mg Rosuvastatin Calcium (Crestor) 10 mg PO HS [facility] Last Admin: 01/16/17 23:34 Dose: 10 mg Zolpidem Tartrate (Ambien) 5 mg PO HS PRN PRN Reason: Insomnia - Labs Labs: PT 10.3 SECONDS (9.7-12.2) 01/16/17 14:48 INR 0.9 01/16/17 14:48 APTT 31 SECONDS (21-34) 01/16/17 14:48
--- NOTE | 2017-01-17 12:56 | PCM.HF ---
Heart Failure Core Measure - Heart Failure Ejection Fraction: Less Than 40 % YUMIKO Inhibitor Prescribed: Yes Beta-Fred Prescribed: Carvedilol Angiotensin II Receptor Fred Prescribed: No Contraindication/Reason for not providing: ON YUMIKO AnticoagulationTherapy for Atrial Fibrillation/Atrialflutter: No Contraindication/Reason for not providing: NO AFIB Implantable Cardioverter Defibrillator Therapy: No Contraindication/Reason for not providing: HAS PACEMAKER/DEFIB Cardiac Resynchronization Therapy Prescribed: No Contraindication/Reason for not providing: HAS PACEMAKER/DEFIB - Follow up Will be discharged to: Home
--- NOTE | 2017-01-17 13:29 | CP.PCM.CON ---
History of Present Illness - History of Present Illness History of Present Illness: Cardiology consult note. Attending: Dr. Grijalva This is a 56 yo male with past medical hx of HTN, CHF, DM presenting with chief complaint of "fluid on the lungs." Pt began developing severe shortness of breath day before evaluation and felt this was similar to episode in the past where he was told he had fluid on the lungs. He also reports chronic cough productive of brown phlegm. The shortness of breath was getting worse and he was also developing some right sided chest pain/rib pain that he describes as sharp as well. He denies fevers, chills, vomiting, diarrhea, syncope, hematuria , bloody BMs. PMH: HTN, CHF, DM, arthritis PSH: thoracentesis, knee replacement, pacemaker Allergies: NKDA FH: CVA in family Social hx: Current smoker. Has smoked since age 38. Says he will only smoke 1-2 cigs per day now. Denies drinking and drug use. Born in [place]. Does not work. Review of Systems - Review of Systems All systems: reviewed and no additional remarkable complaints except Review of Systems: negative except per HPI. Past Patient History - Infectious Disease Hx of Infectious Diseases: None - Tetanus Immunizations Tetanus Immunization: Unknown - Past Medical History & Family History Past Medical History?: Yes - Past Social History Smoking Status: Light Smoker < 10 Cigarettes Daily Chewing Tobacco Use: No Cigar Use: No Alcohol: None Drugs: Denies Home Situation {Lives}: Alone Domestic Violence: Negative - CARDIAC Hx Congestive Heart Failure: Yes Hx Hypercholesterolemia: Yes Hx Hypertension: Yes Hx Pacemaker: Yes - PULMONARY Hx Asthma: Yes Hx Chronic Obstructive Pulmonary Disease (COPD): Yes - NEUROLOGICAL Hx Transient Ischemic Attacks (TIA): No - HEENT Hx HEENT Problems: No - RENAL Hx Chronic Kidney Disease: No - ENDOCRINE/METABOLIC Hx Endocrine Disorders: Yes Hx Diabetes Mellitus Type 2: Yes - HEMATOLOGICAL/ONCOLOGICAL Hx Blood Disorders: No - INTEGUMENTARY Hx Dermatological Problems: No - MUSCULOSKELETAL/RHEUMATOLOGICAL Hx Arthritis: Yes (R KNEE TKR) Hx Falls: No - GASTROINTESTINAL Hx Pancreatitis: Yes - GENITOURINARY/GYNECOLOGICAL Hx Genitourinary Disorders: No - PSYCHIATRIC Hx Substance Use: No - SURGICAL HISTORY Hx Surgeries: Yes Hx Orthopedic Surgery: Yes (RIGHT KNEE [id number]) - ANESTHESIA Hx Anesthesia: Yes Hx Anesthesia Reactions: No Hx Malignant Hyperthermia: No Meds Allergies/Adverse Reactions: Allergies Allergy/AdvReac Type Severity Reaction Status Date / Time No Known Allergies Allergy Verified 01/16/17 19:04 - Medications Medications: Current Medications Aspirin (Aspirin Chewable) 81 mg PO DAILY [facility] Last Admin: 01/17/17 10:40 Dose: 81 mg Bupropion HCl (Wellbutrin) 75 mg PO BID [facility] Last Admin: 01/17/17 10:40 Dose: 75 mg Carvedilol (Coreg) 12.5 mg PO BID [facility] Last Admin: 01/17/17 10:40 Dose: 12.5 mg Clonazepam (Klonopin) 1 mg PO BID PRN PRN Reason: Anxiety Enoxaparin Sodium (Lovenox) 40 mg SC DAILY [facility] Last Admin: 01/17/17 10:41 Dose: 40 mg Furosemide (Lasix) 20 mg PO DAILY [facility] Last Admin: 01/17/17 10:40 Dose: 20 mg Lisinopril (Zestril) 2.5 mg PO DAILY [facility] Last Admin: 01/17/17 10:40 Dose: 2.5 mg Metformin HCl (Glucophage) 500 mg PO BID [facility] Last Admin: 01/17/17 10:40 Dose: 500 mg Pneumococcal Polyvalent Vaccine (Pneumovax 23 Vaccine) 0.5 ml IM .ONCE ONE Stop: 01/19/17 10:01 Quetiapine Fumarate (Seroquel) 400 mg PO DAILY [facility] Last Admin: 01/17/17 10:40 Dose: 400 mg Rosuvastatin Calcium (Crestor) 10 mg PO HS [facility] Last Admin: 01/16/17 23:34 Dose: 10 mg Zolpidem Tartrate (Ambien) 5 mg PO PRN PRN Reason: Insomnia Physical Exam - Constitutional Appears: Non-toxic, No Acute Distress - Head Exam Head Exam: ATRAUMATIC, NORMAL INSPECTION, NORMOCEPHALIC - Eye Exam Eye Exam: EOMI - ENT Exam ENT Exam: Mucous Membranes Moist - Neck Exam Neck exam: Positive for: Full Rom, Normal Inspection - Respiratory Exam Respiratory Exam: Rales. absent: Respiratory Distress - Cardiovascular Exam Cardiovascular Exam: +S1, +S2 - GI/Abdominal Exam GI & Abdominal Exam: Normal Bowel Sounds, Soft. absent: Tenderness - Extremities Exam Extremities exam: Positive for: full ROM, normal inspection - Back Exam Back exam: NORMAL INSPECTION - Neurological Exam Neurological exam: Alert, Oriented x3 - Psychiatric Exam Psychiatric exam: Normal Affect, Normal Mood - Skin Skin Exam: Dry, Intact, Normal Color, Warm Results - Vital Signs Recent Vital Signs: Last Vital Signs Temp 98.1 F 01/17/17 08:23 Pulse 97 H 01/17/17 08:23 Resp 19 01/17/17 08:23 BP 121/91 H 01/17/17 10:40 Pulse Ox 98 01/17/17 08:23 - Labs Result Diagrams: 01/16/17 14:48 01/16/17 14:48 Labs: Laboratory Results - last 24 hr 01/17/17 01/17/17 01/17/17 04:16 08:17 11:06 POC Glucose (mg/dL) 74 71 Total Creatine Kinase 95 CK-MB (Mass) 0.83 Troponin I, Quant 0.0550 01/17/17 12:07 POC Glucose (mg/dL) Total Creatine Kinase 80 CK-MB (Mass) 0.67 Troponin I, Quant 0.0320 Assessment & Plan - Assessment and Plan (Free Text) Assessment: A/P CHF exacerbation -interrogate defibrillator -continue carvedilol daily -continue asa daily -continue lasix 20 po daily -continue lisinopril daily -continue lovenox 40 daily -continue crestor 10 mg po hs discussed with Dr. Grijalva
--- NOTE | 2017-01-17 14:38 | CARD ---
APPROVED REPORT EKG Measurement Heart Snss253AZOH [place] [id number] [id number] <Conclusion> Sinus tachycardia with premature atrial complexes Voltage criteria for left ventricular hypertrophy T wave abnormality, consider lateral ischemia Abnormal ECG
[2017-01-17] MEDS: Lidocaine 5% Patch TD SCH (17:33)
--- NOTE | 2017-01-17 21:26 | CP.PCM.PN ---
Subjective - Date & Time of Evaluation Date of Evaluation: 01/17/17 Time of Evaluation: 10:00 - Subjective Subjective: Pt seen and examined, continues to c/o chest pain on deep inspiration, pt was also evalauted by cardiology, plan of care as per cardiology Objective - Vital Signs/Intake and Output Vital Signs (last 24 hours): Temp Pulse Resp BP Pulse Ox 98 F 89 20 92/63 L 97 01/17/17 15:30 01/17/17 20:00 01/17/17 15:30 01/17/17 17:38 01/17/17 15:30 - Medications Medications: Current Medications Aspirin (Aspirin Chewable) 81 mg PO DAILY [facility] Last Admin: 01/17/17 10:40 Dose: 81 mg Bupropion HCl (Wellbutrin) 75 mg PO BID [facility] Last Admin: 01/17/17 17:35 Dose: 75 mg Carvedilol (Coreg) 12.5 mg PO BID [facility] Last Admin: 01/17/17 17:38 Dose: Not Given Clonazepam (Klonopin) 1 mg PO BID PRN PRN Reason: Anxiety Enoxaparin Sodium (Lovenox) 40 mg SC DAILY [facility] Last Admin: 01/17/17 10:41 Dose: 40 mg Furosemide (Lasix) 20 mg PO DAILY [facility] Last Admin: 01/17/17 10:40 Dose: 20 mg Lidocaine (Lidoderm) 1 ea TD DAILY [facility] Last Admin: 01/17/17 17:33 Dose: 1 ea Lisinopril (Zestril) 2.5 mg PO DAILY [facility] Last Admin: 01/17/17 10:40 Dose: 2.5 mg Metformin HCl (Glucophage) 500 mg PO BID [facility] Last Admin: 01/17/17 17:34 Dose: 500 mg Pneumococcal Polyvalent Vaccine (Pneumovax 23 Vaccine) 0.5 ml IM .ONCE ONE Stop: 01/19/17 10:01 Quetiapine Fumarate (Seroquel) 400 mg PO DAILY [facility] Last Admin: 01/17/17 10:40 Dose: 400 mg Rosuvastatin Calcium (Crestor) 10 mg PO HS [facility] Last Admin: 01/17/17 21:03 Dose: 10 mg Zolpidem Tartrate (Ambien) 5 mg PO HS PRN PRN Reason: Insomnia - Labs Labs: PT 10.3 SECONDS (9.7-12.2) 01/16/17 14:48 INR 0.9 01/16/17 14:48 APTT 31 SECONDS (21-34) 01/16/17 14:48 - Constitutional Appears: No Acute Distress - Head Exam Head Exam: ATRAUMATIC, NORMAL INSPECTION, NORMOCEPHALIC - Eye Exam Eye Exam: EOMI, Normal appearance, PERRL Pupil Exam: NORMAL ACCOMODATION, PERRL - Respiratory Exam Respiratory Exam: Clear to Ausculation Bilateral, NORMAL BREATHING PATTERN - Cardiovascular Exam Cardiovascular Exam: REGULAR RHYTHM, +S1, +S2. absent: Murmur - GI/Abdominal Exam GI & Abdominal Exam: Soft, Normal Bowel Sounds. absent: Tenderness Assessment and Plan (1) Acute exacerbation of CHF (congestive heart failure) Assessment & Plan: -interrogate defibrillator -continue carvedilol daily -continue asa daily -continue lasix 20 po daily -continue lisinopril daily -continue lovenox 40 daily -continue crestor 10 mg po hs Status: Acute (2) COPD (chronic obstructive pulmonary disease) Status: Acute (3) Chest pain Status: Acute
[2017-01-18 08:34] VITALS: PULSE 82; RESP 19; TEMP 97.8; O2SAT 95
[2017-01-18] MEDS: Enoxaparin 40 mg Syringe SC SCH (09:58)
[2017-01-18 09:59] VITALS: BP 121/82
[2017-01-18] MEDS: Lidocaine 5% Patch TD SCH (09:59)
--- NOTE | 2017-01-18 10:38 | CP.PCM.PN ---
Subjective - Date & Time of Evaluation Date of Evaluation: 01/18/17 Time of Evaluation: 10:35 - Subjective Subjective: PGY2- Cardiology progress note- Dr. Grijalva Pt seen and examined at bedside. He is feeling better today and denies fever, chills, chest pain, shortness of breath, abdominal pain. He does continue to complain of pain in his mid back with deep inspiration. No acute events overnight. Objective - Vital Signs/Intake and Output Vital Signs (last 24 hours): Temp Pulse Resp BP Pulse Ox 97.8 F 82 19 121/82 95 01/18/17 08:33 01/18/17 08:33 01/18/17 08:33 01/18/17 09:59 01/18/17 08:33 Intake and Output: 01/18/17 01/18/17 06:59 18:59 Intake Total 300 Balance 300 - Medications Medications: Current Medications Aspirin (Aspirin Chewable) 81 mg PO DAILY [facility] Last Admin: 01/18/17 09:59 Dose: 81 mg Bupropion HCl (Wellbutrin) 75 mg PO BID [facility] Last Admin: 01/18/17 09:58 Dose: 75 mg Carvedilol (Coreg) 12.5 mg PO BID [facility] Last Admin: 01/18/17 09:59 Dose: 12.5 mg Clonazepam (Klonopin) 1 mg PO BID PRN PRN Reason: Anxiety Enoxaparin Sodium (Lovenox) 40 mg SC DAILY [facility] Last Admin: 01/18/17 09:58 Dose: 40 mg Furosemide (Lasix) 20 mg PO DAILY [facility] Last Admin: 01/18/17 09:59 Dose: 20 mg Lidocaine (Lidoderm) 1 ea TD DAILY [facility] Last Admin: 01/18/17 09:59 Dose: 1 ea Lisinopril (Zestril) 2.5 mg PO DAILY [facility] Last Admin: 01/18/17 09:59 Dose: 2.5 mg Metformin HCl (Glucophage) 500 mg PO BID [facility] Last Admin: 01/18/17 09:58 Dose: 500 mg Pneumococcal Polyvalent Vaccine (Pneumovax 23 Vaccine) 0.5 ml IM .ONCE ONE Stop: 01/19/17 10:01 Quetiapine Fumarate (Seroquel) 400 mg PO DAILY [facility] Last Admin: 01/18/17 09:59 Dose: 400 mg Rosuvastatin Calcium (Crestor) 10 mg PO HS [facility] Last Admin: 01/17/17 21:03 Dose: 10 mg Zolpidem Tartrate (Ambien) 5 mg PO HS PRN PRN Reason: Insomnia - Labs Labs: PT 10.3 SECONDS (9.7-12.2) 01/16/17 14:48 INR 0.9 01/16/17 14:48 APTT 31 SECONDS (21-34) 01/16/17 14:48 - Constitutional Appears: No Acute Distress, Unkempt - Eye Exam Eye Exam: EOMI, Scleral icterus - ENT Exam ENT Exam: Mucous Membranes Moist - Respiratory Exam Respiratory Exam: Clear to Ausculation Bilateral, NORMAL BREATHING PATTERN. absent: Rhonchi, Wheezes, Respiratory Distress - Cardiovascular Exam Cardiovascular Exam: REGULAR RHYTHM - GI/Abdominal Exam GI & Abdominal Exam: Soft. absent: Tenderness - Neurological Exam Neurological Exam: Alert, Awake, Oriented x3 Assessment and Plan - Assessment and Plan (Free Text) Assessment: 56 year old male with hx of CHF s/p pacemaker, presenting with acute exacerbation and exhibits clinical improvement today Plan: CHF exacerbation Pt is clinically improve and is no longer complaining of symptoms CXR- mild L atelectasis ECG- sinus tachy with PACs and T wave inversion suggestive of lateral ischemia -interrogate defibrillator -continue medicatios: carvedilol 12.5mg PO daily asa 81mg PO daily lasix 20mg PO daily lisinopril 2.5mg PO daily lovenox 40mg subq daily crestor 10 mg po qhs Discharge planning as per medical team Thank you for your consult
--- NOTE | 2017-01-18 11:09 | CP.PCM.PN ---
Subjective - Date & Time of Evaluation Date of Evaluation: 01/18/17 Time of Evaluation: 11:09 Objective - Vital Signs/Intake and Output Vital Signs (last 24 hours): Temp Pulse Resp BP Pulse Ox 97.8 F 82 19 121/82 95 01/18/17 08:33 01/18/17 08:33 01/18/17 08:33 01/18/17 09:59 01/18/17 08:33 Intake and Output: 01/18/17 01/18/17 06:59 18:59 Intake Total 300 Balance 300 - Medications Medications: Current Medications Aspirin (Aspirin Chewable) 81 mg PO DAILY [facility] Last Admin: 01/18/17 09:59 Dose: 81 mg Bupropion HCl (Wellbutrin) 75 mg PO BID [facility] Last Admin: 01/18/17 09:58 Dose: 75 mg Carvedilol (Coreg) 12.5 mg PO BID [facility] Last Admin: 01/18/17 09:59 Dose: 12.5 mg Clonazepam (Klonopin) 1 mg PO BID PRN PRN Reason: Anxiety Enoxaparin Sodium (Lovenox) 40 mg SC DAILY [facility] Last Admin: 01/18/17 09:58 Dose: 40 mg Furosemide (Lasix) 20 mg PO DAILY [facility] Last Admin: 01/18/17 09:59 Dose: 20 mg Lidocaine (Lidoderm) 1 ea TD DAILY [facility] Last Admin: 01/18/17 09:59 Dose: 1 ea Lisinopril (Zestril) 2.5 mg PO DAILY [facility] Last Admin: 01/18/17 09:59 Dose: 2.5 mg Metformin HCl (Glucophage) 500 mg PO BID [facility] Last Admin: 01/18/17 09:58 Dose: 500 mg Pneumococcal Polyvalent Vaccine (Pneumovax 23 Vaccine) 0.5 ml IM .ONCE ONE Stop: 01/19/17 10:01 Quetiapine Fumarate (Seroquel) 400 mg PO DAILY [facility] Last Admin: 01/18/17 09:59 Dose: 400 mg Rosuvastatin Calcium (Crestor) 10 mg PO HS [facility] Last Admin: 01/17/17 21:03 Dose: 10 mg Zolpidem Tartrate (Ambien) 5 mg PO HS PRN PRN Reason: Insomnia - Labs Labs: PT 10.3 SECONDS (9.7-12.2) 01/16/17 14:48 INR 0.9 01/16/17 14:48 APTT 31 SECONDS (21-34) 01/16/17 14:48
[2017-01-19] MEDS ORDERED: Pneumococcal 23-Valent Vaccine IM ONE (10:00)
== END 2017-01-18 11:30 | disposition home or self-care (01) ==
LOC: C.ER 18:58 → C.5T 21:58
PROVIDERS: ADMIT Internal Medicine; ATTEND Internal Medicine
DX: R07.9 Chest pain, unspecified (principal); F10.120 Alcohol abuse with intoxication, uncomplicated; Y90.4 Blood alcohol level of 80-99 mg/100 ml; E78.00 Pure hypercholesterolemia, unspecified; E11.9 Type 2 diabetes mellitus without complications; F17.200 Nicotine dependence, unspecified, uncomplicated; I11.0 Hypertensive heart disease with heart failure; I50.9 Heart failure, unspecified; J44.9 Chronic obstructive pulmonary disease, unspecified; Z95.0 Presence of cardiac pacemaker; Z79.899 Other long term (current) drug therapy
CPT/HCPCS: 36415; 71010; 80053; 81001; 82803; 82948; 83690; 83880; 84484; 85025; 85610; 85730; 93005; 96365; 96372; 96375; 99285; G0378; G0480; J1650; J1885; J1940; J2543

== ENCOUNTER 2017-04-06 12:26 | Inpatient (IN) | payer MEDICARE ==
[2017-04-06 12:34] VITALS: BMI 27.9
--- NOTE | 2017-04-06 12:50 | C.PDOC ---
History Of Present Illness 57 yr old male with PMhx of CHF, HTN, diabetes, arthritis, pancreatitis, hyperlipidemia and ETOH abuse, presents to the ER with complaints of recurring SOB for the past 3 days. Patient states the current episode is similar to one in the past, states "but not as bad as last time". Patient states she is compliant with meds, last dose of Lasix and diabetes medication was this morning. Patient denies fever, chest pain, nausea, vomiting, dizziness, weakness or numbness. 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 CO RECUR SOB X 3 DAYS. PMH of CHF, HTN, diabetes, arthritis, pancreatitis, hyperlipidemia and ETOH abuse, known EF of less than 30% CURRENT EPISODE SIM TO PRIOR "BUT NOT BAD LAST TIME". COMPLIANT W MEDS, S/ P LASIX AND DM MEDS THIS MORNING. NO CP, NV, DIZZY. 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 NO FEVER. EXAM MILD DIST NONTOXIC LUNGS B/L RALES TO MID +TACHYPNEA NO RETRACTION CV RRR SINUS TACH 2+PITTING EDEMA B/L WARM DRY PSYCH CALM COOPERATIVE NO ACUTE INTOX REMAINDER NEG Time Seen by Provider: 04/06/17 12:45 Chief Complaint (Nursing): Shortness Of Breath History Per: Patient History/Exam Limitations: no limitations Onset/Duration Of Symptoms: Days (3) Past Medical History Reviewed: Historical Data, Nursing Documentation, Vital Signs Vital Signs: Last Vital Signs Temp 97.9 F 04/06/17 12:34 Pulse 96 H 04/06/17 12:34 Resp 18 04/06/17 13:53 BP 111/95 H 04/06/17 12:34 Pulse Ox 100 04/06/17 13:19 - Medical History PMH: Arthritis (R KNEE TKR), Asthma, CHF, COPD, Diabetes, HTN, Hypercholesterolemia, Hyperlipidemia, Pancreatitis Surgical History: Pacemaker - [facility] ALCOHOL DETOXIFICATION (08/20/13) ASSISTANCE WITH RESPIRATORY VENTILATION, 24-96 HRS, CPAP (09/30/16) INJECT/INFUSE NEC (08/17/13) MEASURE OF CARDIAC SAMPL & PRESSURE, L HEART, PERC APPROACH (05/20/16) PLAIN RADIOGRAPHY OF LEFT HEART USING LOW OSMOLAR CONTRAST (05/20/16) PLAIN RADIOGRAPHY OF THORACIC AORTA USING L OSM CONTRAST (05/20/16) Family History: States: No Known Family Hx - Social History Hx Tobacco Use: Yes Hx Alcohol Use: Yes ("little bit") Hx Substance Use: No - Immunization History Hx Tetanus Toxoid Vaccination: No Hx Influenza Vaccination: No Hx Pneumococcal Vaccination: No Review Of Systems Except As Marked, All Systems Reviewed And Found Negative. Constitutional: Negative for: Fever Cardiovascular: Negative for: Chest Pain Respiratory: Positive for: Shortness of Breath Gastrointestinal: Negative for: Nausea, Vomiting Neurological: Negative for: Weakness, Numbness, Dizziness Physical Exam - Physical Exam Appears: Non-toxic, In Acute Distress (Mild) Skin: Warm, Dry, No Rash Head: Atraumatic, Normacephalic Oral Mucosa: Moist Chest: Symmetrical, No Tenderness Cardiovascular: Rhythm Regular, Other ((+) Sinus tach.) Respiratory: Rales (Bilateral rales to mid. ), No Wheezing, Other ((+) Tachypnea. No retractions. ) Extremity: Normal ROM, Other ((+) 2+ pitting edema, bilateral. ) Neurological/Psych: Oriented x3, Normal Speech, Normal Motor, Other (No acute intoxication.) ED Course And Treatment - Laboratory Results Result Diagrams: 04/06/17 13:17 04/06/17 13:17 ECG: Interpreted By Me ECG Rhythm: Sinus Rhythm ECG Interpretation: No Changes From Prior Interpretation Of ECG: TWI I, II, AVL V4-6. QTC 477 Rate From EC (BPM) O2 Sat by Pulse Oximetry: 100 (RA) Pulse Ox Interpretation: Normal - Radiology CXR: Interpreted by Me, Viewed By Tx CXR Interpretation: Yes: Other (CHF) Progress - Re-Evaluation Re-evaluation Note: 04/06/17 14:03 STABLE ON VAPOTHERMA. APPEARS COMFORTABLE D/W DR Leobardo AGUSTIN PULP GRINDER WILL ADMIT. CONSULT DR SANTOS - Data Reviewed Data Reviewed: Lab, Diagnostic imaging, EKG, Old records Medical Decision Making Medical Decision Making: PLAN: * CXR * EKG * VBG * Troponin * CBC * CMP * Urinalysis * Duoneb INH * Lasix IVP * Solumedrol IVP Disposition Counseled Patient/Family Regarding: Studies Performed, Diagnosis - Disposition Disposition: HOSPITALIZED Disposition Time: 14:03 Condition: STABLE Forms: [facility] ([place]ish) - POA Present On Arrival: None - Clinical Impression Clinical Impression: CHF exacerbation - Scribe Statement The provider has reviewed the documentation as recorded by the Scribe Silvia Aubrie Provider Attestation: All medical record entries made by the Yang were at my direction and personally dictated by me. I have reviewed the chart and agree that the record accurately reflects my personal performance of the history, physical exam, medical decision making, and the department course for this patient. I have also personally directed, reviewed, and agree with the discharge instructions and disposition. Decision To Admit - Pt Status Changed To: Hospital Disposition Of: Observation - . Bed Request Type: Telemetry Admitting Physician: Dalila Garza Patient Diagnosis: CHF exacerbation
[2017-04-06] MEDS ORDERED: MethylPREDNISolone 40 mg Vial IVP STA (12:54)
[2017-04-06] MEDS ORDERED: Albuterol-Ipratrop 3 mg / 0.5 (3 ml) UD INH STA (13:15)
[2017-04-06] MEDS ORDERED: Albuterol-Ipratrop 3 mg / 0.5 (3 ml) UD ONE (13:22)
[2017-04-06 13:31] LABS: BASO % 0.6 % (0.0-2.0); EOS % 0.2 % (0.0-4.0); HEMATOCRIT 33.7 % (35.0-51.0); LYMPH # 0.2 K/uL (1.0-4.3); LYMPH % 3.3 % (20.0-40.0); MEAN CELL VOLUME 95.4 fL (80.0-94.0); MEAN CORPUSCULAR HEMOGLOBIN 32.7 pg (27.0-31.0); MEAN CORPUSCULAR HGB CONC 34.2 g/dL (33.0-37.0); MEAN PLATELET VOLUME 9.2 fL (7.2-11.7); MONO % 13.4 % (0.0-10.0); PLATELET COUNT 181 K/uL (130-400); RED CELL DISTRIBUTION WIDTH 15.9 % (11.5-14.5); URINE BILIRUBIN NEGATIVE (NEGATIVE); URINE BLOOD 1+ (NEGATIVE); URINE COLOR Yellow (YELLOW); URINE GLUCOSE (UA) NORMAL (Normal); URINE KETONE NEGATIVE (NEGATIVE); URINE LEUKOCYTE ESTERASE NEG Leu/uL (Negative); URINE PROTEIN 2+ mg/dL (NEGATIVE); URINE UROBILINOGEN NORMAL mg/dL (0.2-1.0); WHITE BLOOD COUNT 7.2 K/uL (4.8-10.8)
[2017-04-06 13:32] LABS: VENOUS BLOOD GAS BASE EXCESS -8.1 mmol/L (0.0-2.0); VENOUS BLOOD GAS PCO2 37 mmHg (40-60); VENOUS BLOOD PH 7.29 (7.32-7.43)
[2017-04-06 13:36] LABS: CHLORIDE 103 mmol/L (98-107)
[2017-04-06 13:37] LABS: SODIUM 131 mmol/L (132-148)
[2017-04-06 13:39] LABS: ALB/GLOB RATIO 0.9 (1.0-2.1); ALKALINE PHOSPHATASE 144 U/L (38-126); ALT/SGPT 228 U/L (21-72); AST/SGOT 356 U/L (17-59); BILIRUBIN,TOTAL 1.3 mg/dL (0.2-1.3); BLOOD UREA NITROGEN 12 mg/dL (9-20); CARBON DIOXIDE 16 mmol/L (22-30); GFR AFRICAN-AMERICAN > 60; GLUCOSE,RANDOM 99 mg/dL (75-110); TOTAL PROTEIN 7.4 g/dL (6.3-8.3)
[2017-04-06 13:40] LABS: CALCIUM 8.1 mg/dl (8.6-10.4); URINE BACTERIA RARE (<OCC); URINE HYALINE CAST 0-2 /lpf (0-2); WBC URINE 2 /hpf (0-5)
[2017-04-06 13:41] LABS: POTASSIUM 5.6 mmol/L (3.6-5.2); RBC URINE 1 /hpf (0-3)
--- NOTE | 2017-04-06 14:33 | RAD ---
PROCEDURE: CHEST RADIOGRAPH, 1 VIEW HISTORY: SOB COMPARISON: 01/16/2017 FINDINGS: LUNGS: Mild pulmonary vascular congestion. PLEURA: Suspicious for small right pleural effusion CARDIOVASCULAR: Cardiomegaly. Single wire left-sided AICD/pacemaker is seen in place. OSSEOUS STRUCTURES: No significant abnormalities. VISUALIZED UPPER ABDOMEN: Normal. OTHER FINDINGS: None. IMPRESSION: Cardiomegaly mild pulmonary vascular congestion and suspicious for small right pleural effusion.
[2017-04-06 14:41] LABS: NEUTROPHIL 84 % (50-75); TOTAL CELLS COUNTED 100
--- NOTE | 2017-04-06 15:05 | CP.PCM.HP ---
Past Patient History - Infectious Disease Hx of Infectious Diseases: None - Tetanus Immunizations Tetanus Immunization: Unknown - Past Medical History & Family History Past Medical History?: Yes - Past Social History Smoking Status: Light Smoker < 10 Cigarettes Daily - CARDIAC Hx Congestive Heart Failure: Yes Hx Hypercholesterolemia: Yes Hx Hypertension: Yes Hx Pacemaker: Yes - PULMONARY Hx Asthma: Yes Hx Chronic Obstructive Pulmonary Disease (COPD): Yes - NEUROLOGICAL Hx Transient Ischemic Attacks (TIA): No - HEENT Hx HEENT Problems: No - RENAL Hx Chronic Kidney Disease: No - ENDOCRINE/METABOLIC Hx Endocrine Disorders: Yes Hx Diabetes Mellitus Type 2: Yes - HEMATOLOGICAL/ONCOLOGICAL Hx Blood Disorders: No - INTEGUMENTARY Hx Dermatological Problems: No - MUSCULOSKELETAL/RHEUMATOLOGICAL Hx Arthritis: Yes (R KNEE TKR) - GASTROINTESTINAL Hx Pancreatitis: Yes - GENITOURINARY/GYNECOLOGICAL Hx Genitourinary Disorders: No - PSYCHIATRIC Hx Substance Use: No - SURGICAL HISTORY Hx Surgeries: Yes Hx Orthopedic Surgery: Yes (RIGHT KNEE [id number]) - ANESTHESIA Hx Anesthesia: Yes Hx Anesthesia Reactions: No Hx Malignant Hyperthermia: No Meds Allergies/Adverse Reactions: Allergies Allergy/AdvReac Type Severity Reaction Status Date / Time No Known Allergies Allergy Verified 04/06/17 12:34 Physical Exam - Constitutional Appears: Well - Head Exam Head Exam: ATRAUMATIC, NORMAL INSPECTION, NORMOCEPHALIC - Eye Exam Eye Exam: EOMI, Normal appearance, PERRL Pupil Exam: NORMAL ACCOMODATION, PERRL - ENT Exam ENT Exam: Mucous Membranes Moist, Normal Exam - Neck Exam Neck exam: Positive for: Normal Inspection - Respiratory Exam Respiratory Exam: Decreased Breath Sounds - Cardiovascular Exam Cardiovascular Exam: REGULAR RHYTHM, +S1, +S2 - GI/Abdominal Exam GI & Abdominal Exam: Diminished Bowel Sounds, Soft - Rectal Exam Rectal Exam: Deferred Results - Vital Signs Recent Vital Signs: Last Vital Signs Temp 97.9 F 04/06/17 12:34 Pulse 98 H 04/06/17 14:44 Resp 24 04/06/17 14:44 BP 124/85 04/06/17 14:44 Pulse Ox 100 04/06/17 14:44 - Labs Result Diagrams: 04/06/17 13:17 04/06/17 13:17 Labs: Laboratory Results - last 24 hr 04/06/17 04/06/17 04/06/17 12:46 13:17 13:17 WBC 7.2 RBC 3.53 L Hgb 11.5 L Hct 33.7 L MCV 95.4 H MCH 32.7 H MCHC 34.2 RDW 15.9 H Plt Count 181 MPV 9.2 Neut % (Auto) 82.5 H Lymph % (Auto) 3.3 L Maverick % (Auto) 13.4 H Eos % (Auto) 0.2 Baso % (Auto) 0.6 Neut # 5.9 Lymph # 0.2 L Maverick # 1.0 H Eos # 0.0 Baso # 0.0 Neutrophils % (Manual) 84 H Band Neutrophils % 2 Lymphocytes % (Manual) 3 L Monocytes % (Manual) 11 H Platelet Estimate Normal Polychromasia Slight Hypochromasia (manual) Slight Poikilocytosis (manual Slight Anisocytosis (manual) Slight Microcytosis (manual) Slight Macrocytosis (manual) Slight Target Cells Slight PT 10.9 INR 1.0 APTT 31 pO2 VBG pH VBG pCO2 VBG HCO3 VBG Total CO2 VBG O2 Sat (Calc) VBG Base Excess VBG Potassium Glucose Lactate Sodium Potassium Chloride Carbon Dioxide Anion Gap BUN Creatinine Est GFR ( Amer) Est GFR (Non-Af Amer) POC Glucose (mg/dL) 126 H Random Glucose Calcium Total Bilirubin AST ALT Alkaline Phosphatase Troponin I NT-Pro-B Natriuret Pep Total Protein Albumin Globulin Albumin/Globulin Ratio Venous Blood Potassium Urine Color Urine Clarity Urine pH Ur Specific [place] Urine Protein Urine Glucose (UA) Urine Ketones Urine Blood Urine Nitrate Urine Bilirubin Urine Urobilinogen Ur Leukocyte Esterase Urine WBC (Auto) Urine RBC (Auto) Urine Bacteria Hyaline Casts 04/06/17 04/06/17 04/06/17 13:17 13:17 13:28 WBC RBC Hgb Hct MCV MCH MCHC RDW Plt Count MPV Neut % (Auto) Lymph % (Auto) Maverick % (Auto) Eos % (Auto) Baso % (Auto) Neut # Lymph # Ma[place]ick # Eos # Baso # Neutrophils % (Manual) Band Neutrophils % Lymphocytes % (Manual) Monocytes % (Manual) Platelet Estimate Polychromasia Hypochromasia (manual) Poikilocytosis (manual Anisocytosis (manual) Microcytosis (manual) Macrocytosis (manual) Target Cells PT INR APTT pO2 33 VBG pH 7.29 L VBG pCO2 37 L VBG HCO3 17.5 VBG Total CO2 18.9 L VBG O2 Sat (Calc) 55.6 VBG Base Excess -8.1 L VBG Potassium 4.6 Glucose 109 Lactate 2.3 H Sodium 131 L 133.0 Potassium 5.6 H Chloride 103 106.0 Carbon Dioxide 16 L Anion Gap 18 BUN 12 Creatinine 1.0 Est GFR ( Amer) > 60 Est GFR (Non-Af Amer) > 60 POC Glucose (mg/dL) Random Glucose 99 Calcium 8.1 L Total Bilirubin 1.3 AST 356 H ALT 228 H D Alkaline Phosphatase 144 H Troponin I 0.0530 NT-Pro-B Natriuret Pep 4020 H Total Protein 7.4 Albumin 3.4 L Globulin 4.0 H Albumin/Globulin Ratio 0.9 L Venous Blood Potassium 4.6 Urine Color Yellow Urine Clarity Clear Urine pH 5.0 Ur Specific [place] 1.008 Urine Protein 2+ H Urine Glucose (UA) Normal Urine Ketones Negative Urine Blood 1+ H Urine Nitrate Negative Urine Bilirubin Negative Urine Urobilinogen Normal Ur Leukocyte Esterase Neg Urine WBC (Auto) 2 Urine RBC (Auto) 1 Urine Bacteria Rare Hyaline Casts 0-2
[2017-04-06 16:44] LABS: VENOUS BLOOD GAS BASE EXCESS -4.1 mmol/L (0.0-2.0); VENOUS BLOOD GAS PCO2 41 mmHg (40-60); VENOUS BLOOD PH 7.33 (7.32-7.43)
[2017-04-06] MEDS: MethylPREDNISolone 40 mg Vial IVP SCH ×2 (16:44→21:10)
[2017-04-06] MEDS ORDERED: Pantoprazole 40 mg EC Tab PO ONE (17:55)
[2017-04-06] MEDS: Pantoprazole 40 mg EC Tab PO SCH (18:11)
[2017-04-06] MEDS: Oxycodone/Acetaminophen 5/325 mg Tab PO PRN (21:09)
[2017-04-06] MEDS: (Novolog) Insulin Aspart, Recombinant 100 u/ml 10 ml vial SC SCH (22:07)
[2017-04-07] MEDS: Albuterol-Ipratrop 3 mg / 0.5 (3 ml) UD INH SCH ×4 (01:31→19:47)
--- NOTE | 2017-04-07 03:36 | CON ---
CARDIOLOGY CONSULTATION DATE: REASON FOR CONSULTATION: Exacerbation of congestive heart failure. HISTORY OF PRESENT ILLNESS: The patient is a 57-year-old male, who has a history of congestive heart failure, hypertension, diabetes mellitus, pancreatitis, hyperlipidemia, EtOH abuse, presented with shortness of breath as well as leg swelling. The patient's past workup included cardiac catheterization on 05/20/2016, which revealed nonischemic cardiomyopathy. An echocardiographic study was performed in 09/2016, which revealed ejection fraction in the range of 25 to 30% with global hypokinesis of the left ventricle and moderate pulmonary hypertension. 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 SOCIAL HISTORY: The patient is a smoker and alcohol abuser. MEDICATIONS: Ambien 5 mg at bedtime, Coreg 12.5 mg once a day, Crestor 10 mg once a day, Flexeril 10 mg twice a day, metformin 500 mg twice a day, Klonopin 1 mg twice a day, Lasix 20 mg once a day, Lasix 40 mg intravenously daily, Protonix 40 mg once a day, Lovenox 40 mg subcutaneous once a day, Solu-Medrol 40 mg intravenously q. 8 hours, Wellbutrin 75 mg p.o. twice a day, Xanax 1 mg p.o. at bedtime, and Vistaril 2.5 mg once a day. REVIEW OF SYSTEMS: No dizziness or syncope. No fever or chills. No retrosternal chest pain. PHYSICAL EXAMINATION: GENERAL: The patient is a middle-aged male who is mildly tachypneic, but does not appears to be in any acute distress. VITAL SIGNS: Blood pressure 137/99, heart rate 95, respirations 26, temperature 97.9. HEENT: Mild facial edema. NECK: No JVD. CHEST: Bibasilar coarse crepitations. HEART: S1 and S2 regular. ABDOMEN: Soft. EXTREMITIES: 1+ pitting edema. LABORATORY DATA: Today's SMA-7, sodium 131, potassium 5.6, chloride 103, CO2 of 16, glucose 99, BUN 12, creatinine 1.2, calcium is below normal at 8.1, AST and ALT are 366 and 228 respectively. ProBNP 4020. PT/PTT and INR are within normal limit. Hemoglobin and hematocrit 11.5 and 33.7, white count 7.2, platelet count 181,000. EKG dated 01/17/2017, reveals sinus tachycardia with premature atrial complexes, Q-wave abnormality consists of lateral ischemia. Chest x-ray is inaccessible on [employer] database, however, official report stated cardiomegaly, mild pulmonary vascular congestion and suspicious for small right pleural effusion. ASSESSMENT: 1. Exacerbation of congestive heart failure. 2. Ethanol abuse. 3. Chronic obstructive lung disease. 4. Uncontrolled hypertension. RECOMMENDATIONS: Continue Coreg 12.5 mg twice a day, Crestor 10 mg once a day, Lasix will be increased to 40 mg intravenously twice a day, continue Zestril 2.5 mg once a day, and discontinue oral Lasix, start thiamine at 100 mg orally daily. Pato Holman MD
[2017-04-07] MEDS: MethylPREDNISolone 40 mg Vial IVP SCH ×3 (05:21→22:28)
[2017-04-07] MEDS: Oxycodone/Acetaminophen 5/325 mg Tab PO PRN ×2 (05:32→19:36)
[2017-04-07] MEDS: (Novolog) Insulin Aspart, Recombinant 100 u/ml 10 ml vial SC SCH ×3 (08:00→21:50)
[2017-04-07] MEDS ORDERED: Enoxaparin 40 mg Syringe SC SCH (10:00)
[2017-04-07] MEDS: Pantoprazole 40 mg EC Tab PO SCH (11:23)
--- NOTE | 2017-04-07 11:27 | CP.PCM.PN ---
Subjective - Date & Time of Evaluation Date of Evaluation: 04/07/17 Time of Evaluation: 12:40 - Subjective Subjective: clinically same Objective - Vital Signs/Intake and Output Vital Signs (last 24 hours): Temp Pulse Resp BP Pulse Ox 97.3 F L 88 20 125/71 95 04/07/17 07:30 04/07/17 07:45 04/07/17 07:45 04/07/17 11:23 04/07/17 07:30 Intake and Output: 04/07/17 04/07/17 06:59 18:59 Intake Total 340 Balance 340 - Medications Medications: Current Medications Albuterol/Ipratropium (Duoneb 3 Mg/0.5 Mg (3 Ml) Ud) 3 ml INH RQ6 [facility] Last Admin: 04/07/17 07:45 Dose: 3 ml Alprazolam (Xanax) 1 mg PO HS [facility] Last Admin: 04/06/17 21:08 Dose: 1 mg Bupropion HCl (Wellbutrin) 75 mg PO BID [facility] Last Admin: 04/06/17 18:51 Dose: 75 mg Carvedilol (Coreg) 12.5 mg PO BID [facility] Last Admin: 04/07/17 11:23 Dose: 12.5 mg Clonazepam (Klonopin) 1 mg PO BID [facility] Last Admin: 04/07/17 11:24 Dose: 1 mg Cyclobenzaprine HCl (Flexeril) 10 mg PO BID [facility] Last Admin: 04/07/17 11:23 Dose: 10 mg Enoxaparin Sodium (Lovenox) 40 mg SC DAILY [facility] Last Admin: 04/07/17 11:25 Dose: 40 mg Furosemide (Lasix) 40 mg IVP BID [facility] Last Admin: 04/07/17 11:23 Dose: 40 mg Insulin Aspart (Novolog) 0 unit SC ACHS [facility] PRN Reason: Protocol Last Admin: 04/07/17 08:00 Dose: 2 unit Lisinopril (Zestril) 2.5 mg PO DAILY [facility] Metformin HCl (Glucophage) 500 mg PO BID [facility] Last Admin: 04/07/17 11:23 Dose: 500 mg Methylprednisolone (Solu-Medrol) 40 mg IVP Q8 [facility] Last Admin: 04/07/17 05:21 Dose: 40 mg Oxycodone/Acetaminophen (Percocet 5/325 Mg Tab) 1 tab PO Q6H PRN PRN Reason: Pain, moderate (4-7) Stop: 04/09/17 20:05 Last Admin: 04/07/17 05:32 Dose: 1 tab Pantoprazole Sodium (Protonix Ec Tab) 40 mg PO DAILY [facility] Last Admin: 04/07/17 11:23 Dose: 40 mg Pneumococcal Polyvalent Vaccine (Pneumovax 23 Vaccine) 0.5 ml IM .ONCE ONE Stop: 04/08/17 10:01 Quetiapine Fumarate (Seroquel) 400 mg PO DAILY [facility] Rosuvastatin Calcium (Crestor) 10 mg PO HS [facility] Thiamine HCl (Vitamin B1 Tab) 100 mg PO DAILY [facility] Last Admin: 04/06/17 19:00 Dose: 100 mg Zolpidem Tartrate (Ambien) 5 mg PO HS [facility] Last Admin: 04/06/17 21:08 Dose: 5 mg - Labs Labs: 04/06/17 13:17 04/06/17 13:17 PT 10.9 SECONDS (9.7-12.2) 04/06/17 13:17 INR 1.0 04/06/17 13:17 APTT 31 SECONDS (21-34) 04/06/17 13:17 - Constitutional Appears: Well - Head Exam Head Exam: ATRAUMATIC, NORMAL INSPECTION, NORMOCEPHALIC - Eye Exam Eye Exam: EOMI, Normal appearance, PERRL Pupil Exam: NORMAL ACCOMODATION, PERRL - ENT Exam ENT Exam: Mucous Membranes Moist, Normal Exam - Neck Exam Neck Exam: Full ROM, Normal Inspection. absent: Lymphadenopathy - Respiratory Exam Respiratory Exam: Decreased Breath Sounds - Cardiovascular Exam Cardiovascular Exam: REGULAR RHYTHM, +S1, +S2 - GI/Abdominal Exam GI & Abdominal Exam: Soft, Diminished Bowel Sounds - Rectal Exam Rectal Exam: Deferred
--- NOTE | 2017-04-07 18:16 | CP.PCM.CON ---
Past Patient History - Infectious Disease Hx of Infectious Diseases: None - Tetanus Immunizations Tetanus Immunization: Unknown - Past Medical History & Family History Past Medical History?: Yes - Past Social History Smoking Status: Former Smoker - CARDIAC Hx Cardiac Disorders: Yes Hx Congestive Heart Failure: Yes Hx Hypercholesterolemia: Yes Hx Hypertension: Yes Hx Pacemaker: Yes - PULMONARY Hx Respiratory Disorders: Yes Hx Asthma: Yes Hx Chronic Obstructive Pulmonary Disease (COPD): Yes - NEUROLOGICAL Hx Neurological Disorder: No Hx Transient Ischemic Attacks (TIA): No - HEENT Hx HEENT Problems: No - RENAL Hx Chronic Kidney Disease: No - ENDOCRINE/METABOLIC Hx Endocrine Disorders: Yes Hx Diabetes Mellitus Type 2: Yes - HEMATOLOGICAL/ONCOLOGICAL Hx Blood Disorders: No - INTEGUMENTARY Hx Dermatological Problems: No - MUSCULOSKELETAL/RHEUMATOLOGICAL Hx Musculoskeletal Disorders: No Hx Falls: No - GASTROINTESTINAL Hx Gastrointestinal Disorders: Yes Hx Pancreatitis: Yes - GENITOURINARY/GYNECOLOGICAL Hx Genitourinary Disorders: No - PSYCHIATRIC Hx Psychophysiologic Disorder: No Hx Substance Use: No - SURGICAL HISTORY Hx Surgeries: Yes Hx Orthopedic Surgery: Yes (RIGHT KNEE [id number]) - ANESTHESIA Hx Anesthesia: Yes Hx Anesthesia Reactions: No Hx Malignant Hyperthermia: No Has any member of the family had a problem w/ anesthesia?: No Meds Allergies/Adverse Reactions: Allergies Allergy/AdvReac Type Severity Reaction Status Date / Time No Known Allergies Allergy Verified 04/06/17 12:34 - Medications Medications: Current Medications Albuterol/Ipratropium (Duoneb 3 Mg/0.5 Mg (3 Ml) Ud) 3 ml INH RQ6 [facility] Last Admin: 04/07/17 13:50 Dose: 3 ml Alprazolam (Xanax) 1 mg PO HS [facility] Last Admin: 04/06/17 21:08 Dose: 1 mg Bupropion HCl (Wellbutrin) 75 mg PO BID [facility] Last Admin: 04/07/17 10:00 Dose: 75 mg Carvedilol (Coreg) 12.5 mg PO BID [facility] Last Admin: 04/07/17 11:23 Dose: 12.5 mg Clonazepam (Klonopin) 1 mg PO BID [facility] Last Admin: 04/07/17 11:24 Dose: 1 mg Cyclobenzaprine HCl (Flexeril) 10 mg PO BID [facility] Last Admin: 04/07/17 11:23 Dose: 10 mg Enoxaparin Sodium (Lovenox) 40 mg SC DAILY [facility] Last Admin: 10/08/17 11:25 Dose: 40 mg Furosemide (Lasix) 40 mg IVP BID [facility] Last Admin: 04/07/17 11:23 Dose: 40 mg Insulin Aspart (Novolog) 0 unit SC ACHS [facility] PRN Reason: Protocol Last Admin: 04/07/17 08:00 Dose: 2 unit Lisinopril (Zestril) 2.5 mg PO DAILY [facility] Last Admin: 04/07/17 10:00 Dose: 2.5 mg Metformin HCl (Glucophage) 500 mg PO BID [facility] Last Admin: 04/07/17 11:23 Dose: 500 mg Methylprednisolone (Solu-Medrol) 40 mg IVP Q8 [facility] Last Admin: 04/07/17 13:58 Dose: 40 mg Oxycodone/Acetaminophen (Percocet 5/325 Mg Tab) 1 tab PO Q6H PRN PRN Reason: Pain, moderate (4-7) Stop: 04/09/17 20:05 Last Admin: 04/07/17 05:32 Dose: 1 tab Pantoprazole Sodium (Protonix Ec Tab) 40 mg PO DAILY [facility] Last Admin: 04/07/17 11:23 Dose: 40 mg Pneumococcal Polyvalent Vaccine (Pneumovax 23 Vaccine) 0.5 ml IM .ONCE ONE Stop: 04/08/17 10:01 Quetiapine Fumarate (Seroquel) 400 mg PO DAILY [facility] Last Admin: 04/07/17 10:00 Dose: 400 mg Rosuvastatin Calcium (Crestor) 10 mg PO [facility] Thiamine HCl (Vitamin B1 Tab) 100 mg PO DAILY [facility] Last Admin: 04/06/17 19:00 Dose: 100 mg Zolpidem Tartrate (Ambien) 5 mg PO [facility] Last Admin: 04/06/17 21:08 Dose: 5 mg Results - Vital Signs Recent Vital Signs: Last Vital Signs Temp 97.2 F L 04/07/17 17:01 Pulse 80 04/07/17 17:01 Resp 20 04/07/17 17:01 BP 110/82 04/07/17 17:01 Pulse Ox 100 04/07/17 17:01 - Labs Result Diagrams: 04/06/17 13:17 04/06/17 13:17 Labs: Laboratory Results - last 24 hr 04/06/17 04/07/17 04/07/17 21:36 06:50 11:13 POC Glucose (mg/dL) 212 H 219 H 360 H 04/07/17 17:25 POC Glucose (mg/dL) 82
--- NOTE | 2017-04-07 20:05 | PN ---
DATE: SUBJECTIVE: The patient's shortness of breath has improved and to some extent his leg swelling. PHYSICAL EXAMINATION VITAL SIGNS: Blood pressure 125/71, heart rate 88, temperature 97.3 and respirations 20. HEENT: facial edema. NECK: No JVD. HEART: S1 and S2 regular. CHEST: Bibasilar rales. EXTREMITIES: 2+ pitting edema. ASSESSMENT: 1. Exacerbation of congestive heart failure acute systolic failure. 2. Chronic obstructive lung disease. 3. ETOH abuse. 4. Hypertension. CONDITIONS: Continue Coreg 12.5 mg twice a day, Crestor 10 mg once a day, metformin 500 mg twice a day, Lasix 40 mg intravenous twice a day, subcutaneous Lovenox at 40 mg once a day, Seroquel 400 mg orally daily, thiamine 100 mg once a day and Zestril 2.5 mg once a day. Obtain BMP and magnesium level in a.m. Pato Holman MD
[2017-04-07] MEDS ORDERED: Dextrose 50% SYRINGE Inj (50 ml) ONE (21:54)
[2017-04-08] MEDS: DOPamine 400mg/250ml D5W 400 MG/250 ML BAG IV PRN ×3 (00:30→16:55)
[2017-04-08] MEDS: Albuterol-Ipratrop 3 mg / 0.5 (3 ml) UD INH SCH ×3 (01:01→19:25)
[2017-04-08 01:11] LABS: BASO # 0.1 K/uL (0.0-0.2); BASO % 0.7 % (0.0-2.0); EOS % 0.2 % (0.0-4.0); HEMATOCRIT 34.4 % (35.0-51.0); LYMPH # 0.4 K/uL (1.0-4.3); LYMPH % 5.5 % (20.0-40.0); MEAN CELL VOLUME 97.2 fL (80.0-94.0); MEAN CORPUSCULAR HEMOGLOBIN 32.1 pg (27.0-31.0); MEAN PLATELET VOLUME 9.6 fL (7.2-11.7); MONO % 12.4 % (0.0-10.0); NRBC % 0.2 % (0.0-2.0); PLATELET COUNT 150 K/uL (130-400); RED CELL DISTRIBUTION WIDTH 15.4 % (11.5-14.5); WHITE BLOOD COUNT 8.2 K/uL (4.8-10.8)
[2017-04-08 01:23] LABS: POTASSIUM 5.9 mmol/L (3.6-5.2)
[2017-04-08 01:25] LABS: ALB/GLOB RATIO 0.9 (1.0-2.1); BILIRUBIN,TOTAL 1.6 mg/dL (0.2-1.3); TOTAL PROTEIN 6.2 g/dL (6.3-8.3)
[2017-04-08 01:26] LABS: CALCIUM 7.3 mg/dl (8.6-10.4); MAGNESIUM 1.6 mg/dL (1.6-2.3); PHOSPHOROUS 8.2 mg/dL (2.5-4.5)
[2017-04-08 01:32] LABS: ARTERIAL BLOOD GAS MODE PRVC; ATERIAL BLOOD GAS PEEP 5; DRAW SITE RB
[2017-04-08 01:37] LABS: TROPONIN I 0.046 ng/mL (0.00-0.120)
[2017-04-08 01:45] LABS: NEUTROPHIL 87 % (50-75); TOTAL CELLS COUNTED 100
[2017-04-08 01:46] LABS: LARGE PLATELETS PRESENT
[2017-04-08] MEDS: Midazolam 2 MG/2 ML VIAL IVP PRN ×2 (02:00→04:00)
[2017-04-08] MEDS ORDERED: Midazolam 2 MG/2 ML VIAL IVP ONE ×2 (02:48→04:22)
[2017-04-08] MEDS: Sodium Bicarbonate 8.4% 150 MEQ in Dextrose 5% In Water 1,000 ML IV SCH ×4 (04:00→19:55)
--- NOTE | 2017-04-08 04:00 | PCM.PROC ---
Procedures Attestation:: I certify that I have explained the specified Operation(s) or Procedure(s), risks, benefits and reasonable alternatives to the Patient and/or other person responsible. The opportunity was given to ask questions and all questions answered - Intubation Time Out Performed: Yes Sedative: Etomidate Laryngoscope: Compa (4) ET Tube Size: 7.5 ET Tube Uncuffed: No ET Tube Secured at Depth: 22 ET Tube Secured Locarion: Teeth ET Tube Placement Confirmation: Visualized Passing Through Cords, Breath Sounds Equal Bilaterally, No Breath Sounds Over Epigastrum, Confirmation w/Capnometry Additional comments: Patient intubated for acute resp distress, shock like state with hypotension, hypoxia, cynosis, see progress notes.
[2017-04-08 04:43] LABS: ABG MECHANICAL RATE 14; ARTERIAL BLOOD GAS MODE PRVC; ARTERIAL BLOOD HGB O2 SAT 89.2 % (95.0-98.0); ATERIAL BLOOD GAS PEEP 5; CARBOXYHEMOGLOBIN 1.7 % (0.5-1.5); DRAW SITE RB; HHB 8.3 % (0.0-5.0); METHEMOGLOBIN 0.7 % (0.0-3.0)
[2017-04-08] MEDS ORDERED: Heparin25000 units/250ml 1/2NS 25,000 UNITS/250 ML BAG IV PRN (05:19)
--- NOTE | 2017-04-08 05:30 | PCM.PROC ---
Procedures Attestation:: I certify that I have explained the specified Operation(s) or Procedure(s), risks, benefits and reasonable alternatives to the Patient and/or other person responsible. The opportunity was given to ask questions and all questions answered - Central Line Placement Right Internal Jugular Triple Lumen Catheter Aseptic technique was employed throughout the procedure: Hand Hygiene done prior to procedure, Full sterile barriers (mask, hair cover, sterile gown, sterile gloves), Full body sterile drape, Chloraprep Antiseptic: 30 second prep for IJ or SC sites CVP Time Out Performed: Yes Pt. Placed on Pulse Ox Monitor: Yes Central Line Prep: Chlorhexidine-Alcohol Combination Local Anesthesia Used: Lidocaine 1% Amount of Anesthesia Used (mls): 2 Ultrasound Used for Placement: Yes Central Line Lumen Inserted: triple Central Line Length: 16 cm Post Procedure: Sutured in Place, Good Blood Return, All Ports Aspirated, Flushed, Capped, Sterile Dressing Applied Secured by: Suture Post procedure dressing: Clear vapor permeable, Chlorhexidine disc (Biopatch) Post Procedure X-Ray: Yes Patient Tolerated Procedure: Well Immediate Complications: None (TLC done for administration of higher dose of dopamine, tried to call patient's family POA number 3 times with no response, hence performed as urgent procedure.)
[2017-04-08] MEDS: (Novolog) Insulin Aspart, Recombinant 100 u/ml 10 ml vial SC SCH ×3 (06:00→19:11)
[2017-04-08] MEDS: Piperacill/Tazo 2.25gm in Dex 2.25 GM/50 ML BAG IVPB SCH ×4 (06:00→22:30)
[2017-04-08 06:04] LABS: INR 1.2
[2017-04-08 06:10] LABS: BILIRUBIN,TOTAL 1.5 mg/dL (0.2-1.3)
[2017-04-08 06:11] LABS: ALB/GLOB RATIO 0.9 (1.0-2.1); CALCIUM 6.7 mg/dl (8.6-10.4); PHOSPHOROUS 6.9 mg/dL (2.5-4.5)
[2017-04-08 06:12] LABS: MAGNESIUM 1.4 mg/dL (1.6-2.3)
[2017-04-08 06:14] LABS: HEMATOCRIT 32.6 % (35.0-51.0); MEAN CORPUSCULAR HEMOGLOBIN 32.2 pg (27.0-31.0); MEAN CORPUSCULAR HGB CONC 33.5 g/dL (33.0-37.0); MEAN PLATELET VOLUME 10.4 fL (7.2-11.7); RED CELL DISTRIBUTION WIDTH 15.4 % (11.5-14.5); WHITE BLOOD COUNT 7.9 K/uL (4.8-10.8)
[2017-04-08] MEDS: MethylPREDNISolone 40 mg Vial IVP SCH ×3 (06:27→22:20)
--- NOTE | 2017-04-08 06:53 | CP.PCM.CON ---
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 Patient was intubated due to above and brought ot ICU. ABG confirmed hypoxia of PO2 60 on FIO2 of 100%, metabloic acidosis, lactic acidosis. Patient was started on dopamine drip during [employer]. CXR confirmed ET 2cm above darcy, CXR CMG, small b/l effusion unchanged from the prior CXR, AICD noticed. HEENT SAMMIE Neck Supple, JVD present Chest b/l reduced air entry CVS Regular, no murmur PA soft, nt Ext no edema, reduced pulses, clammy cold. FRONT COUNTER CLERK following commands post intubation, prior to sedation stared. Repeat lab work showed elevated creatinine, metabolic anion gp acidosis, mild hyperkalemia Assessment * Acute hypoxicmic resp failure with unchanged CXR high suspicion of PE or shunt (less likely) * Cardiogenic shock less likely despite h/o nonischemic cardiomyopathy * ANGEL fro current shock can't do CTA * H/o alcoholism Plan * Supportive care * Biarb drip to improve hyperkalemia * Empiric heparin started due to high suspicion of PE, echo ordered to see RV function, and venous doppler * Empiric abx although pna to be cause of above is unlikely * Tried to reach family 3 times no response from the phone number provided * Central line done for need of high dose of dopamine. * Primary team notified * See orders for detail. Past Patient History - Infectious Disease Hx of Infectious Diseases: None - Tetanus Immunizations Tetanus Immunization: Unknown - Past Medical History & Family History Past Medical History?: Yes - Past Social History Smoking Status: Former Smoker - CARDIAC Hx Cardiac Disorders: Yes Hx Congestive Heart Failure: Yes Hx Hypercholesterolemia: Yes Hx Hypertension: Yes Hx Pacemaker: Yes - PULMONARY Hx Respiratory Disorders: Yes Hx Asthma: Yes Hx Chronic Obstructive Pulmonary Disease (COPD): Yes - NEUROLOGICAL Hx Neurological Disorder: No Hx Transient Ischemic Attacks (TIA): No - HEENT Hx HEENT Problems: No - RENAL Hx Chronic Kidney Disease: No - ENDOCRINE/METABOLIC Hx Endocrine Disorders: Yes Hx Diabetes Mellitus Type 2: Yes - HEMATOLOGICAL/ONCOLOGICAL Hx Blood Disorders: No - INTEGUMENTARY Hx Dermatological Problems: No - MUSCULOSKELETAL/RHEUMATOLOGICAL Hx Musculoskeletal Disorders: No Hx Falls: No - GASTROINTESTINAL Hx Gastrointestinal Disorders: Yes Hx Pancreatitis: Yes - GENITOURINARY/GYNECOLOGICAL Hx Genitourinary Disorders: No - PSYCHIATRIC Hx Psychophysiologic Disorder: No Hx Substance Use: No - SURGICAL HISTORY Hx Surgeries: Yes Hx Orthopedic Surgery: Yes (RIGHT KNEE [id number]) - ANESTHESIA Hx Anesthesia: Yes Hx Anesthesia Reactions: No Hx Malignant Hyperthermia: No Has any member of the family had a problem w/ anesthesia?: No Meds Allergies/Adverse Reactions: Allergies Allergy/AdvReac Type Severity Reaction Status Date / Time No Known Allergies Allergy Verified 04/06/17 12:34 - Medications Medications: Current Medications Albuterol/Ipratropium (Duoneb 3 Mg/0.5 Mg (3 Ml) Ud) 3 ml INH RQ6 [facility] Last Admin: 04/08/17 01:01 Dose: Not Given Enoxaparin Sodium (Lovenox) 40 mg SC DAILY [facility] Last Admin: 04/07/17 11:25 Dose: 40 mg Dopamine HCl/Dextrose (Dopamine 400mg/250ml D5w) 400 mg in 250 mls @ 13.875 mls /hr IV .Q18H2M PRN; Protocol; 5 MCG/KG/MIN PRN Reason: TITRATE PER MD ORDER Last Admin: 04/08/17 06:25 Dose: 15 mcg/kg/min, 41.625 mls/hr Fentanyl Citrate 2,500 mcg/ (Sodium Chloride) 250 mls @ 14.8 mls/hr IV .[id number] CECELIA; 2 MCG/KG/HR PRN Reason: Protocol Last Admin: 04/08/17 04:00 Dose: 2 mcg/kg/hr, 14.8 mls/hr Sodium Bicarbonate 150 meq/ (Dextrose) 1,150 mls @ 250 mls/hr IV .Q4H36M [facility] Last Admin: 04/08/17 04:00 Dose: 250 mls/hr Heparin Sodium/Sodium Chloride (Heparin 98942 Units/250ml 1/2 Normal Saline) 25 ,000 units in 250 mls @ 13.32 mls/hr IV .[id number] PRN; Protocol; 18 UNITS/KG/HR PRN Reason: ADJUST RATE PER PROTOCOL Last Admin: 04/08/17 06:22 Dose: 18 units/kg/hr, 13.32 mls/hr Doxycycline Hyclate 100 mg/ (Sodium Chloride) 100 mls @ 100 mls/hr IVPB Q12H [facility] Last Admin: 04/08/17 06:30 Dose: 100 mls/hr Piperacillin Sod/Tazobactam Sod (Zosyn 2.25 Gm Iv Premix) 2.25 gm in 50 mls @ 100 mls/hr IVPB Q6H [facility] Last Admin: 04/08/17 06:00 Dose: 100 mls/hr Insulin Aspart (Novolog) 0 unit SC Q6H [facility] PRN Reason: Protocol Last Admin: 04/08/17 06:00 Dose: Not Given Metformin HCl (Glucophage) 500 mg PO BID [facility] Last Admin: 04/07/17 18:00 Dose: Not Given Methylprednisolone (Solu-Medrol) 40 mg IVP Q8 [facility] Last Admin: 04/08/17 06:27 Dose: 40 mg Midazolam HCl (Versed Inj) 2 mg IVP Q1H PRN PRN Reason: Anxiety Last Admin: 04/08/17 04:00 Dose: 2 mg Pantoprazole Sodium (Protonix Inj) 40 mg IVP DAILY [facility] Pneumococcal Polyvalent Vaccine (Pneumovax 23 Vaccine) 0.5 ml IM .ONCE ONE Stop: 04/08/17 10:01 Rosuvastatin Calcium (Crestor) 10 mg PO HS [facility] Last Admin: 04/07/17 22:26 Dose: 10 mg Results - Vital Signs Recent Vital Signs: Last Vital Signs Temp 97.9 F 04/08/17 04:00 Pulse 99 H 04/08/17 06:01 Resp 13 04/08/17 06:25 BP 107/84 04/08/17 06:25 Pulse Ox 94 L 04/08/17 06:25 - Labs Result Diagrams: 04/08/17 05:55 04/08/17 01:05 Labs: Laboratory Results - last 24 hr 04/07/17 04/07/17 04/07/17 06:50 11:13 17:25 WBC RBC Hgb Hct MCV MCH MCHC RDW Plt Count MPV Neut % (Auto) Lymph % (Auto) Day % (Auto) Eos % (Auto) Baso % (Auto) Neut # Lymph # Day # Eos # Baso # Neutrophils % (Manual) Lymphocytes % (Manual) Monocytes % (Manual) Platelet Estimate Large Platelets Polychromasia Anisocytosis (manual) Microcytosis (manual) PT INR APTT Puncture Site pCO2 pO2 HCO3 ABG pH ABG Total CO2 ABG O2 Saturation ABG Base Excess ABG Hemoglobin ABG Carboxyhemoglobin POC ABG HHb (Measured) ABG Methemoglobin Johan Test ABG Potassium A-a O2 Difference Respiratory Index Hgb O2 Saturation Glucose Lactate Vent Mode Mechanical Rate FiO2 Tidal Volume PEEP Sodium Potassium Chloride Carbon Dioxide Anion Gap BUN Creatinine Est GFR ( Amer) Est GFR (Non-Af Amer) POC Glucose (mg/dL) 219 H 360 H 82 Random Glucose Calcium Phosphorus Magnesium Total Bilirubin AST ALT Alkaline Phosphatase CK-MB (Mass) Troponin I Total Protein Albumin Globulin Albumin/Globulin Ratio Arterial Blood Potassium 04/07/17 04/07/17 04/07/17 21:46 22:09 23:56 WBC RBC Hgb Hct MCV MCH MCHC RDW Plt Count MPV Neut % (Auto) Lymph % (Auto) Day % (Auto) Eos % (Auto) Baso % (Auto) Neut # Lymph # Day # Eos # Baso # Neutrophils % (Manual) Lymphocytes % (Manual) Monocytes % (Manual) Platelet Estimate Large Platelets Polychromasia Anisocytosis (manual) Microcytosis (manual) PT INR APTT Puncture Site pCO2 pO2 HCO3 ABG pH ABG Total CO2 ABG O2 Saturation ABG Base Excess ABG Hemoglobin ABG Carboxyhemoglobin POC ABG HHb (Measured) ABG Methemoglobin Johan Test ABG Potassium A-a O2 Difference Respiratory Index Hgb O2 Saturation Glucose Lactate Vent Mode Mechanical Rate FiO2 Tidal Volume PEEP Sodium Potassium Chloride Carbon Dioxide Anion Gap BUN Creatinine Est GFR ( Amer) Est GFR (Non-Af Amer) POC Glucose (mg/dL) 50 L 152 H 100 Random Glucose Calcium Phosphorus Magnesium Total Bilirubin AST ALT Alkaline Phosphatase CK-MB (Mass) Troponin I Total Protein Albumin Globulin Albumin/Globulin Ratio Arterial Blood Potassium 04/08/17 04/08/17 04/08/17 00:58 01:05 01:05 WBC 8.2 RBC 3.54 L Hgb 11.4 L Hct 34.4 L MCV 97.2 H MCH 32.1 H MCHC 33.0 RDW 15.4 H Plt Count 150 MPV 9.6 Neut % (Auto) 81.2 H Lymph % (Auto) 5.5 L Day % (Auto) 12.4 H Eos % (Auto) 0.2 Baso % (Auto) 0.7 Neut # 6.6 Lymph # 0.4 L Day # 1.0 H Eos # 0.0 Baso # 0.1 Neutrophils % (Manual) 87 H Lymphocytes % (Manual) 6 L Monocytes % (Manual) 7 Platelet Estimate Normal Large Platelets Present Polychromasia Slight Anisocytosis (manual) Slight Microcytosis (manual) Moderate PT INR APTT Puncture Site pCO2 pO2 HCO3 ABG pH ABG Total CO2 ABG O2 Saturation ABG Base Excess ABG Hemoglobin ABG Carboxyhemoglobin POC ABG HHb (Measured) ABG Methemoglobin Johan Test ABG Potassium A-a O2 Difference Respiratory Index Hgb O2 Saturation Glucose Lactate Vent Mode Mechanical Rate FiO2 Tidal Volume PEEP Sodium 128 L Potassium 5.9 H Chloride 98 Carbon Dioxide 15 L Anion Gap 21 H BUN 34 H Creatinine 2.5 H Est GFR ( Amer) 33 Est GFR (Non-Af Amer) 27 POC Glucose (mg/dL) 89 Random Glucose 73 L Calcium 7.3 L Phosphorus 8.2 H Magnesium 1.6 Total Bilirubin 1.6 H AST 421 H ALT 244 H Alkaline Phosphatase 118 CK-MB (Mass) 2.77 Troponin I 0.0460 Total Protein 6.2 L Albumin 2.9 L Globulin 3.3 Albumin/Globulin Ratio 0.9 L Arterial Blood Potassium 04/08/17 04/08/17 04/08/17 01:25 04:30 05:50 WBC RBC Hgb Hct MCV MCH MCHC RDW Plt Count MPV Neut % (Auto) Lymph % (Auto) Day % (Auto) Eos % (Auto) Baso % (Auto) Neut # Lymph # Day # Eos # Baso # Neutrophils % (Manual) Lymphocytes % (Manual) Monocytes % (Manual) Platelet Estimate Large Platelets Polychromasia Anisocytosis (manual) Microcytosis (manual) PT INR APTT Puncture Site Rb Rb pCO2 35 33 L pO2 60 L 63 L HCO3 15.6 L 19.3 L ABG pH 7.24 L 7.34 L ABG Total CO2 16.1 L 18.8 L ABG O2 Saturation 88.5 L 91.5 L ABG Base Excess -11.5 L -7.0 L ABG Hemoglobin 12.4 ABG Carboxyhemoglobin 1.7 H POC ABG HHb (Measured) 8.3 H ABG Methemoglobin 0.7 Johan Test Na Na ABG Potassium 5.9 H A-a O2 Difference 609.0 609.0 Respiratory Index 10.2 9.7 Hgb O2 Saturation 89.2 L Glucose 118 H Lactate 4.0 H* Vent Mode Prvc Prvc Mechanical Rate 14 FiO2 100.0 100.0 Tidal Volume 450 450 PEEP 5 5 Sodium 128.0 L Potassium Chloride 101.0 Carbon Dioxide Anion Gap BUN Creatinine Est GFR ( Amer) Est GFR (Non-Af Amer) POC Glucose (mg/dL) 272 H Random Glucose Calcium Phosphorus Magnesium Total Bilirubin AST ALT Alkaline Phosphatase CK-MB (Mass) Troponin I Total Protein Albumin Globulin Albumin/Globulin Ratio Arterial Blood Potassium 5.9 H 04/08/17 04/08/17 05:55 05:55 WBC 7.9 RBC 3.39 L Hgb 10.9 L Hct 32.6 L MCV 96.0 H MCH 32.2 H MCHC 33.5 RDW 15.4 H Plt Count 152 MPV 10.4 Neut % (Auto) Lymph % (Auto) Day % (Auto) Eos % (Auto) Baso % (Auto) Neut # Lymph # Day # Eos # Baso # Neutrophils % (Manual) Lymphocytes % (Manual) Monocytes % (Manual) Platelet Estimate Large Platelets Polychromasia Anisocytosis (manual) Microcytosis (manual) PT 13.2 H INR 1.2 APTT 20 L D Puncture Site pCO2 pO2 HCO3 ABG pH ABG Total CO2 ABG O2 Saturation ABG Base Excess ABG Hemoglobin ABG Carboxyhemoglobin POC ABG HHb (Measured) ABG Methemoglobin Johan Test ABG Potassium A-a O2 Difference Respiratory Index Hgb O2 Saturation Glucose Lactate Vent Mode Mechanical Rate FiO2 Tidal Volume PEEP Sodium Potassium Chloride Carbon Dioxide Anion Gap BUN Creatinine Est GFR ( Amer) Est GFR (Non-Af Amer) POC Glucose (mg/dL) Random Glucose Calcium Phosphorus Magnesium Total Bilirubin AST ALT Alkaline Phosphatase CK-MB (Mass) Troponin I Total Protein Albumin Globulin Albumin/Globulin Ratio Arterial Blood Potassium
--- NOTE | 2017-04-08 08:53 | RAD ---
HISTORY: s/p right jugular tlc insertion COMPARISON: 04/08/2017 at 1:18 a.m. FINDINGS: LUNGS: No active pulmonary disease. PLEURA: No significant pleural effusion identified, no pneumothorax apparent. CARDIOVASCULAR: Mild cardiomegaly. Endotracheal tube and nasogastric tube grossly unchanged. New right internal jugular triple-lumen central venous catheter terminates at the level of the right atrium. AICD noted. OSSEOUS STRUCTURES: No significant abnormalities. VISUALIZED UPPER ABDOMEN: Normal. OTHER FINDINGS: None. IMPRESSION: New right IJ TLC terminates at level of right atrium. Otherwise no change.
--- NOTE | 2017-04-08 09:17 | RAD ---
HISTORY: post intubation COMPARISON: 04/06/2027 FINDINGS: LUNGS: No active pulmonary disease. PLEURA: Minimal blunting both costophrenic angle. Possible chronic pleural thickening versus pleural effusion. Right costophrenic angle clear. CARDIOVASCULAR: Mild cardiomegaly. ET tube positioned approximately 1.8 cm above the tracheal darcy. Nasogastric tube extends to left upper quadrant of abdomen. AICD noted. OSSEOUS STRUCTURES: No significant abnormalities. VISUALIZED UPPER ABDOMEN: Normal. OTHER FINDINGS: None. IMPRESSION: New ET tube 1.8 cm above tracheal darcy. New NG tube appropriately positioned. Possible small left pleural effusion versus chronic pleural thickening. No infiltrate.
[2017-04-08] MEDS ORDERED: Pneumococcal 23-Valent Vaccine IM ONE (10:00)
[2017-04-08] MEDS ORDERED: Midazolam 50 mg/10 ml 100 MG in Dextrose 5% In Water 80 ML IV SCH (10:15)
[2017-04-08] MEDS ORDERED: Albumin Human 25% (12.5 gm/50 ml) IV ONE ×2 (10:23→12:00)
[2017-04-08] MEDS: Sodium Chloride 0.9% 1,000 ML IV SCH (11:05)
[2017-04-08 11:07] LABS: LYMPH # 0.8 K/uL (1.0-4.3); MONO # 0.4 K/uL (0.0-0.8)
[2017-04-08 12:26] LABS: ABG MECHANICAL RATE 20; ATERIAL BLOOD GAS PEEP 5; DRAW SITE LF
[2017-04-08] MEDS: Albumin Human 25% (12.5 gm/50 ml) IV ONE ×2 (13:22→13:25)
[2017-04-08] MEDS ORDERED: Sodium Chloride 0.9% 1,000 ML IV ONE (13:30)
--- NOTE | 2017-04-08 13:47 | CP.PCM.PN ---
Subjective - Date & Time of Evaluation Date of Evaluation: 04/08/17 Time of Evaluation: 13:47 Objective - Vital Signs/Intake and Output Vital Signs (last 24 hours): Temp Pulse Resp BP Pulse Ox 98.8 F 90 13 58/39 L 99 04/08/17 12:00 04/08/17 13:00 04/08/17 13:00 04/08/17 12:32 04/08/17 11:00 Intake and Output: 04/08/17 04/08/17 06:59 18:59 Intake Total 1593.5 878.8 Output Total 600 380 Balance 993.5 498.8 - Medications Medications: Current Medications Albuterol/Ipratropium (Duoneb 3 Mg/0.5 Mg (3 Ml) Ud) 3 ml INH RQ6 [facility] Last Admin: 04/08/17 07:20 Dose: 3 ml Dopamine HCl/Dextrose (Dopamine 400mg/250ml D5w) 400 mg in 250 mls @ 13.875 mls /hr IV .Q18H2M PRN; Protocol; 5 MCG/KG/MIN PRN Reason: TITRATE PER MD ORDER Last Admin: 04/08/17 06:25 Dose: 15 mcg/kg/min, 41.625 mls/hr Sodium Bicarbonate 150 meq/ (Dextrose) 1,150 mls @ 250 mls/hr IV .Q4H36M [facility] Last Admin: 04/08/17 13:27 Dose: Not Given Heparin Sodium/Sodium Chloride (Heparin 46305 Units/250ml 1/2 Normal Saline) 25 ,000 units in 250 mls @ 13.32 mls/hr IV .[id number] PRN; Protocol; 18 UNITS/KG/HR PRN Reason: ADJUST RATE PER PROTOCOL Last Admin: 04/08/17 06:22 Dose: 18 units/kg/hr, 13.32 mls/hr Piperacillin Sod/Tazobactam Sod (Zosyn 2.25 Gm Iv Premix) 2.25 gm in 50 mls @ 100 mls/hr IVPB Q6H [facility] Last Admin: 04/08/17 11:37 Dose: 100 mls/hr Midazolam HCl 100 mg/ Dextrose 100 mls @ 1.48 mls/hr IV .Q24H CECELIA; 0.02 MG/KG/ HR PRN Reason: Protocol Last Admin: 04/08/17 11:00 Dose: 0.02 mg/kg/hr, 1.48 mls/hr Sodium Chloride (Sodium Chloride 0.9%) 1,000 mls @ 75 mls/hr IV .[id number] [facility]ECELIA Last Admin: 04/08/17 11:05 Dose: 75 mls/hr Norepinephrine Bitartrate 8 mg (/ Dextrose) 258 mls @ 7.74 mls/hr IV .Q24H PRN ; Protocol; 4 MCG/MIN PRN Reason: TITRATE PER MD ORDER Vasopressin 40 units/ Sodium (Chloride) 40 mls @ 1.2 mls/hr IV .Q24H CECELIA; 0.02 UNITS/MIN PRN Reason: Protocol Sodium Chloride (Sodium Chloride 0.9%) 1,000 mls @ 1,000 mls/hr IV .Q1H ONE Stop: 04/08/17 14:29 Last Admin: 04/08/17 13:39 Dose: 1,000 mls/hr Vancomycin/Sodium Chloride (Vancocin) 1 gm in 200 mls @ 167 mls/hr IVPB ONCE ONE Stop: 04/08/17 15:11 Insulin Aspart (Novolog) 0 unit SC Q6H [facility]IA PRN Reason: Protocol Last Admin: 04/08/17 13:33 Dose: Not Given Methylprednisolone (Solu-Medrol) 40 mg IVP Q8 [facility] Last Admin: 04/08/17 06:27 Dose: 40 mg Pantoprazole Sodium (Protonix Inj) 40 mg IVP DAILY [facility] Last Admin: 04/08/17 11:00 Dose: 40 mg - Labs Labs: 04/08/17 05:55 04/08/17 05:55 PT 13.2 SECONDS (9.7-12.2) H 04/08/17 05:55 INR 1.2 04/08/17 05:55 APTT 20 SECONDS (21-34) L D 04/08/17 05:55
[2017-04-08] MEDS ORDERED: Vancomycin 1 gm/NS 200 ml 1 GM/200 ML BAG IVPB SCH (14:00)
[2017-04-08] MEDS ORDERED: Vancomycin 1 gm/NS 200 ml 1 GM/200 ML BAG IVPB ONE (14:00)
[2017-04-08] MEDS ORDERED: MethylPREDNISolone 40 mg Vial IVP STA (14:38)
--- NOTE | 2017-04-08 15:09 | CP.PCM.CON ---
History of Present Illness - History of Present Illness History of Present Illness: 57 yr old male with PMhx of CHF, HTN, diabetes, arthritis, pancreatitis, hyperlipidemia and ETOH abuse, presents to the ER with complaints of recurring SOB for the past 3 days. Patient denies fever, chest pain, nausea, vomiting, dizziness, weakness or numbness. 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 admitted to [facility] for CHF acute exac and deteriorated - now in ICU intubated and sedated PE work up in process- on pressors, IV antibiotics and heparin drip unable to give any hx PMH of CHF, HTN, diabetes, arthritis, pancreatitis, hyperlipidemia and ETOH abuse, known EF of less than 30% Review of Systems - Review of Systems Systems not reviewed;Unavailable: Altered Mental Status, Intubated - Constitutional Constitutional: As Per HPI - EENT Eyes: absent: As Per HPI, Blind Spots, Blurred Vision, Change in Vision, Decreased Night Vision, Diplopia, Discharge, Dry Eye, Exophthalmos, Floaters, Irritation, Itchy Eyes, Loss of Peripheral Vision, Pain, Photophobia, Requires Corrective Lenses, Sees Flashes, Spots in Vision, Tunnel Vision, Other Visual Disturbances, Loss of Vision, Other Ears: absent: As Per HPI, Decreased Hearing, Ear Discharge, Ear Pain, Tinnitus, Abnormal Hearing, Disequilibrium, Dizziness, Other Nose/Mouth/Throat: absent: As Per HPI, Epistaxis, Nasal Congestion, Nasal Discharge, Nasal Obstruction, Nasal Trauma, Nose Pain, Post Nasal Drip, Sinus Pain, Sinus Pressure, Bleeding Gums, Change in Voice, Dental Pain, Dry Mouth, Dysphagia, Halitosis, Hoarsness, Lip Swelling, Mouth Lesions, Mouth Pain, Odynophagia, Sore Throat, Throat Swelling, Tongue Swelling, Facial Pain, Neck Pain, Neck Mass, Other - Cardiovascular Cardiovascular: As Per HPI - Respiratory Respiratory: As Per HPI - Gastrointestinal Gastrointestinal: absent: As Per HPI, Abdominal Pain, Belching, Bloating, Change in Bowel Habits, Change in Stool Character, Coffee Ground Emesis, Constipation, Cramping, Diarrhea, Dyspepsia, Dysphagia, Early Satiety, Excessive Flatus, Fecal Incontinence, Heartburn, Hematemesis, Hematochezia, Loose Stools, Melena, Nausea, Odynophagia, Temesmus, Vomiting, Other - Genitourinary Genitourinary: absent: As Per HPI, Change in Urinary Stream, Difficulty Urinating, Dysuria, Flank Pain, Hematuria, Pyuria, Nocturia, Urinary Incontinence, Urinary Frequency, Urinary Hesitance, Urinary Urgency, Voiding Freq/Small Amts, Freq UTI, Hx Renal/Bladder Calculi, Hx /Renal Surgery, Bladder Distension, Other - Musculoskeletal Musculoskeletal: absent: As Per HPI, Abnormal Gait, Arthralgias, Atrophy, Back Pain, Deformity, Joint Swelling, Limited Range of Motion, Loss of Height, Muscle Cramps, Muscle Weakness, Myalgias, Neck Pain, Numbness, Radiating Pain into Limb, Stiffness, Tingling, Other - Integumentary Integumentary: absent: As Per HPI, Acne, Alopecia, Bleeding Lesions, Change in Hair, Change in Nails, Change in Pigmentation, Changing Lesions, Dry Skin, Erythema, Furuncle, Hirsutism, Lesions, New Lesions, Non-Healing Lesions, Photosensitivity, Pruritus, Rash, Skin Pain, Skin Ulcer, Sores, Striae, Swelling , Unusual Bruising, Wounds, Jaundice, Other - Neurological Neurological: absent: As Per HPI, Abnormal Gait, Abnormal Hearing, Abnormal Movements, Abnormal Speech, Behavioral Changes, Burning Sensations, Confusion, Convulsions, Disequilibrium, Dizziness, Numbness, Focal Weakness, Frequent Falls , Headaches, Lack of Coordination, Loss of Vision, Memory Loss, Paresthesias, Radicular Pain, Restless Legs, Sensory Deficit, Syncope, Tingling, Tremor, Vertigo, Weakness, Other Visual Disturbances, Other - Psychiatric Psychiatric: absent: As Per HPI, Abnormal Sleep Pattern, Anhedonia, Anxiety, Auditory Hallucinations, Behavioral Changes, Change in Appetite, Change in Libido, Confusion, Depression, Difficulty Concentrating, Hallucinations, Homicidal Ideation, Hopelessness, Irritability, Memory Loss, Mood Swings, Panic Attacks, Paranoia, Suicidal Ideation, Visual Hallucinations, Tactile Hallucinations, Other - Endocrine Endocrine: absent: As Per HPI, Change in Body Appearance, Change in Libido, Cold Intolorance, Deepening of Voice, Excessive Sweating, Fatigue, Flushing, Heat Intolorance, Increase in Ring/Shoe/Hat Size, Palpitations, Polydipsia, Polyphagia, Polyuria, Other - Hematologic/Lymphatic Hematologic: absent: As Per HPI, Easy Bleeding, Easy Bruising, Lymphadenopathy, Other Past Patient History - Infectious Disease Hx of Infectious Diseases: None - Tetanus Immunizations Tetanus Immunization: Unknown - Past Medical History & Family History Past Medical History?: Yes - Past Social History Smoking Status: Former Smoker - CARDIAC Hx Cardiac Disorders: Yes Hx Congestive Heart Failure: Yes Hx Hypercholesterolemia: Yes Hx Hypertension: Yes Hx Pacemaker: Yes - PULMONARY Hx Respiratory Disorders: Yes Hx Asthma: Yes Hx Chronic Obstructive Pulmonary Disease (COPD): Yes - NEUROLOGICAL Hx Neurological Disorder: No Hx Transient Ischemic Attacks (TIA): No - HEENT Hx HEENT Problems: No - RENAL Hx Chronic Kidney Disease: No - ENDOCRINE/METABOLIC Hx Endocrine Disorders: Yes Hx Diabetes Mellitus Type 2: Yes - HEMATOLOGICAL/ONCOLOGICAL Hx Blood Disorders: No - INTEGUMENTARY Hx Dermatological Problems: No - MUSCULOSKELETAL/RHEUMATOLOGICAL Hx Musculoskeletal Disorders: No Hx Falls: No - GASTROINTESTINAL Hx Gastrointestinal Disorders: Yes Hx Pancreatitis: Yes - GENITOURINARY/GYNECOLOGICAL Hx Genitourinary Disorders: No - PSYCHIATRIC Hx Psychophysiologic Disorder: No Hx Substance Use: No - SURGICAL HISTORY Hx Surgeries: Yes Hx Orthopedic Surgery: Yes (RIGHT KNEE [id number]) - ANESTHESIA Hx Anesthesia: Yes Hx Anesthesia Reactions: No Hx Malignant Hyperthermia: No Has any member of the family had a problem w/ anesthesia?: No Meds Allergies/Adverse Reactions: Allergies Allergy/AdvReac Type Severity Reaction Status Date / Time No Known Allergies Allergy Verified 04/06/17 12:34 - Medications Medications: Current Medications Albuterol/Ipratropium (Duoneb 3 Mg/0.5 Mg (3 Ml) Ud) 3 ml INH RQ6 CECELIA Last Admin: 04/08/17 07:20 Dose: 3 ml Dopamine HCl/Dextrose (Dopamine 400mg/250ml D5w) 400 mg in 250 mls @ 13.875 mls /hr IV .Q18H2M PRN; Protocol; 5 MCG/KG/MIN PRN Reason: TITRATE PER MD ORDER Last Admin: 04/08/17 06:25 Dose: 15 mcg/kg/min, 41.625 mls/hr Sodium Bicarbonate 150 meq/ (Dextrose) 1,150 mls @ 250 mls/hr IV .Q4H36M CECELIA Last Admin: 04/08/17 13:27 Dose: Not Given Heparin Sodium/Sodium Chloride (Heparin 20470 Units/250ml 1/2 Normal Saline) 25 ,000 units in 250 mls @ 13.32 mls/hr IV .[id number] PRN; Protocol; 18 UNITS/KG/HR PRN Reason: ADJUST RATE PER PROTOCOL Last Admin: 04/08/17 06:22 Dose: 18 units/kg/hr, 13.32 mls/hr Piperacillin Sod/Tazobactam Sod (Zosyn 2.25 Gm Iv Premix) 2.25 gm in 50 mls @ 100 mls/hr IVPB Q6H [facility], [facility]1983 Last Admin: 04/08/17 11:37 Dose: 100 mls/hr Midazolam HCl 100 mg/ Dextrose 100 mls @ 1.48 mls/hr IV .Q24H CECELIA; 0.02 MG/KG/ HR PRN Reason: Protocol Last Admin: 04/08/17 11:00 Dose: 0.02 mg/kg/hr, 1.48 mls/hr Sodium Chloride (Sodium Chloride 0.9%) 1,000 mls @ 75 mls/hr IV .[id number] CECELIA Last Admin: 04/08/17 11:05 Dose: 75 mls/hr Norepinephrine Bitartrate 8 mg (/ Dextrose) 258 mls @ 7.74 mls/hr IV .Q24H PRN ; Protocol; 4 MCG/MIN PRN Reason: TITRATE PER MD ORDER Vasopressin 40 units/ Sodium (Chloride) 40 mls @ 1.2 mls/hr IV .Q24H CECELIA; 0.02 UNITS/MIN PRN Reason: Protocol Last Admin: 04/08/17 13:54 Dose: 0.02 units/min, 1.2 mls/hr Vancomycin/Sodium Chloride (Vancocin) 1 gm in 200 mls @ 167 mls/hr IVPB ONCE ONE Stop: 04/08/17 15:11 Last Admin: 04/08/17 13:53 Dose: 167 mls/hr Insulin Aspart (Novolog) 0 unit SC Q6H CECELIA PRN Reason: Protocol Last Admin: 04/08/17 13:33 Dose: Not Given Methylprednisolone (Solu-Medrol) 40 mg IVP Q8 [facility] Last Admin: 04/08/17 06:27 Dose: 40 mg Pantoprazole Sodium (Protonix Inj) 40 mg IVP DAILY [facility] Last Admin: 04/08/17 11:00 Dose: 40 mg Physical Exam - Constitutional Appears: Confused Additional comments: sedated/ intubated - Head Exam Head Exam: NORMOCEPHALIC - Eye Exam Eye Exam: PERRL - ENT Exam ENT Exam: Mucous Membranes Dry - Neck Exam Neck exam: Negative for: Lymphadenopathy - Respiratory Exam Respiratory Exam: Decreased Breath Sounds, Rhonchi - Cardiovascular Exam Cardiovascular Exam: Tachycardia, REGULAR RHYTHM, +S1, +S2 - GI/Abdominal Exam GI & Abdominal Exam: Diminished Bowel Sounds, Distended, Soft. absent: Guarding , Rebound, Rigid, Tenderness - Rectal Exam Rectal Exam: Deferred - Exam Exam: NORMAL INSPECTION - Extremities Exam Extremities exam: Positive for: pedal edema, pedal pulses present. Negative for : calf tenderness, tenderness - Back Exam Back exam: absent: CVA tenderness (L), CVA tenderness (R), paraspinal tenderness - Neurological Exam Neurological exam: Altered - Skin Skin Exam: Dry Results - Vital Signs Recent Vital Signs: Last Vital Signs Temp 97.8 F 04/08/17 14:03 Pulse 102 H 04/08/17 14:03 Resp 20 04/08/17 14:03 BP 72/0 L 04/08/17 14:03 Pulse Ox 94 L 04/08/17 14:03 - Labs Result Diagrams: 04/08/17 05:55 04/08/17 05:55 Labs: Laboratory Results - last 24 hr 04/07/17 04/07/17 04/07/17 17:25 21:46 22:09 WBC RBC Hgb Hct MCV MCH MCHC RDW Plt Count MPV Neut % (Auto) Lymph % (Auto) [place] % (Auto) Eos % (Auto) Baso % (Auto) Neut # Lymph # [place] # Eos # Baso # Neutrophils % (Manual) Lymphocytes % (Manual) Monocytes % (Manual) Platelet Estimate Large Platelets Polychromasia Anisocytosis (manual) Microcytosis (manual) PT INR APTT Puncture Site pCO2 pO2 HCO3 ABG pH ABG Total CO2 ABG O2 Saturation ABG Base Excess ABG Hemoglobin ABG Carboxyhemoglobin POC ABG HHb (Measured) ABG Methemoglobin Johan Test ABG Potassium A-a O2 Difference Respiratory Index Hgb O2 Saturation Glucose Lactate Vent Mode Mechanical Rate FiO2 Tidal Volume PEEP Crit Value Called To Crit Value Called By Crit Value Read Back Blood Gas Notified Time Sodium Potassium Chloride Carbon Dioxide Anion Gap BUN Creatinine Est GFR ( Amer) Est GFR (Non-Af Amer) POC Glucose (mg/dL) 82 50 L 152 H Random Glucose Calcium Phosphorus Magnesium Total Bilirubin AST ALT Alkaline Phosphatase CK-MB (Mass) Troponin I Total Protein Albumin Globulin Albumin/Globulin Ratio Arterial Blood Potassium 04/07/17 04/08/17 04/08/17 23:56 00:58 01:05 WBC 8.2 RBC 3.54 L Hgb 11.4 L Hct 34.4 L MCV 97.2 H MCH 32.1 H MCHC 33.0 RDW 15.4 H Plt Count 150 MPV 9.6 Neut % (Auto) 81.2 H Lymph % (Auto) 5.5 L [place] % (Auto) 12.4 H Eos % (Auto) 0.2 Baso % (Auto) 0.7 Neut # 6.6 Lymph # 0.4 L [place] # 1.0 H Eos # 0.0 Baso # 0.1 Neutrophils % (Manual) 87 H Lymphocytes % (Manual) 6 L Monocytes % (Manual) 7 Platelet Estimate Normal Large Platelets Present Polychromasia Slight Anisocytosis (manual) Slight Microcytosis (manual) Moderate PT INR APTT Puncture Site pCO2 pO2 HCO3 ABG pH ABG Total CO2 ABG O2 Saturation ABG Base Excess ABG Hemoglobin ABG Carboxyhemoglobin POC ABG HHb (Measured) ABG Methemoglobin Johan Test ABG Potassium A-a O2 Difference Respiratory Index Hgb O2 Saturation Glucose Lactate Vent Mode Mechanical Rate FiO2 Tidal Volume PEEP Crit Value Called To Crit Value Called By Crit Value Read Back Blood Gas Notified Time Sodium Potassium Chloride Carbon Dioxide Anion Gap BUN Creatinine Est GFR ( Amer) Est GFR (Non-Af Amer) POC Glucose (mg/dL) 100 89 Random Glucose Calcium Phosphorus Magnesium Total Bilirubin AST ALT Alkaline Phosphatase CK-MB (Mass) Troponin I Total Protein Albumin Globulin Albumin/Globulin Ratio Arterial Blood Potassium 04/08/17 04/08/17 04/08/17 01:05 01:25 04:30 WBC RBC Hgb Hct MCV MCH MCHC RDW Plt Count MPV Neut % (Auto) Lymph % (Auto) [place] % (Auto) Eos % (Auto) Baso % (Auto) Neut # Lymph # [place] # Eos # Baso # Neutrophils % (Manual) Lymphocytes % (Manual) Monocytes % (Manual) Platelet Estimate Large Platelets Polychromasia Anisocytosis (manual) Microcytosis (manual) PT INR APTT Puncture Site Rb Rb pCO2 35 33 L pO2 60 L 63 L HCO3 15.6 L 19.3 L ABG pH 7.24 L 7.34 L ABG Total CO2 16.1 L 18.8 L ABG O2 Saturation 88.5 L 91.5 L ABG Base Excess -11.5 L -7.0 L ABG Hemoglobin 12.4 ABG Carboxyhemoglobin 1.7 H POC ABG HHb (Measured) 8.3 H ABG Methemoglobin 0.7 Johan Test Na Na ABG Potassium 5.9 H A-a O2 Difference 609.0 609.0 Respiratory Index 10.2 9.7 Hgb O2 Saturation 89.2 L Glucose 118 H Lactate 4.0 H* Vent Mode Prvc Prvc Mechanical Rate 14 FiO2 100.0 100.0 Tidal Volume 450 450 PEEP 5 5 Crit Value Called To Crit Value Called By Crit Value Read Back Blood Gas Notified Time Sodium 128 L 128.0 L Potassium 5.9 H Chloride 98 101.0 Carbon Dioxide 15 L Anion Gap 21 H BUN 34 H Creatinine 2.5 H Est GFR ( Amer) 33 Est GFR (Non-Af Amer) 27 POC Glucose (mg/dL) Random Glucose 73 L Calcium 7.3 L Phosphorus 8.2 H Magnesium 1.6 Total Bilirubin 1.6 H AST 421 H ALT 244 H Alkaline Phosphatase 118 CK-MB (Mass) 2.77 Troponin I 0.0460 Total Protein 6.2 L Albumin 2.9 L Globulin 3.3 Albumin/Globulin Ratio 0.9 L Arterial Blood Potassium 5.9 H 04/08/17 04/08/17 04/08/17 05:50 05:55 05:55 WBC 7.9 RBC 3.39 L Hgb 10.9 L Hct 32.6 L MCV 96.0 H MCH 32.2 H MCHC 33.5 RDW 15.4 H Plt Count 152 MPV 10.4 Neut % (Auto) 84.0 H Lymph % (Auto) 10.0 L [place] % (Auto) 6.0 Eos % (Auto) 0.0 Baso % (Auto) 0.0 Neut # 6.7 Lymph # 0.8 L [place] # 0.4 Eos # 0.0 Baso # 0.0 Neutrophils % (Manual) Lymphocytes % (Manual) Monocytes % (Manual) Platelet Estimate Large Platelets Polychromasia Anisocytosis (manual) Microcytosis (manual) PT INR APTT Puncture Site pCO2 pO2 HCO3 ABG pH ABG Total CO2 ABG O2 Saturation ABG Base Excess ABG Hemoglobin ABG Carboxyhemoglobin POC ABG HHb (Measured) ABG Methemoglobin Johan Test ABG Potassium A-a O2 Difference Respiratory Index Hgb O2 Saturation Glucose Lactate Vent Mode Mechanical Rate FiO2 Tidal Volume PEEP Crit Value Called To Crit Value Called By Crit Value Read Back Blood Gas Notified Time Sodium 126 L Potassium 5.0 Chloride 95 L Carbon Dioxide 20 L Anion Gap 16 BUN 42 H Creatinine 2.3 H Est GFR ( Amer) 36 Est GFR (Non-Af Amer) 30 POC Glucose (mg/dL) 272 H Random Glucose 206 H Calcium 6.7 L Phosphorus 6.9 H Magnesium 1.4 L Total Bilirubin 1.5 H AST 730 H D ALT 371 H D Alkaline Phosphatase 119 CK-MB (Mass) Troponin I Total Protein 6.0 L Albumin 2.9 L Globulin 3.1 Albumin/Globulin Ratio 0.9 L Arterial Blood Potassium 04/08/17 04/08/17 04/08/17 05:55 12:15 13:30 WBC RBC Hgb Hct MCV MCH MCHC RDW Plt Count MPV Neut % (Auto) Lymph % (Auto) [place] % (Auto) Eos % (Auto) Baso % (Auto) Neut # Lymph # [place] # Eos # Baso # Neutrophils % (Manual) Lymphocytes % (Manual) Monocytes % (Manual) Platelet Estimate Large Platelets Polychromasia Anisocytosis (manual) Microcytosis (manual) PT 13.2 H INR 1.2 APTT 20 L D Puncture Site Lf pCO2 26 L pO2 105 H HCO3 18.7 L ABG pH 7.38 ABG Total CO2 16.2 L ABG O2 Saturation 99.0 H ABG Base Excess -8.0 L ABG Hemoglobin ABG Carboxyhemoglobin POC ABG HHb (Measured) ABG Methemoglobin Johan Test Na ABG Potassium 5.9 H A-a O2 Difference 576.0 Respiratory Index 5.5 Hgb O2 Saturation Glucose 265 H Lactate 4.3 H* Vent Mode Mechanical Rate 20 FiO2 100.0 Tidal Volume 450 PEEP 5 Crit Value Called To Dr ochoa Crit Value Called By Samuel alejandra [facility] Crit Value Read Back Y Blood Gas Notified Time 1225 Sodium 125.0 L Potassium Chloride 96.0 L Carbon Dioxide Anion Gap BUN Creatinine Est GFR ( Amer) Est GFR (Non-Af Amer) POC Glucose (mg/dL) 202 H Random Glucose Calcium Phosphorus Magnesium Total Bilirubin AST ALT Alkaline Phosphatase CK-MB (Mass) Troponin I Total Protein Albumin Globulin Albumin/Globulin Ratio Arterial Blood Potassium 5.9 H Assessment & Plan (1) Acute exacerbation of CHF (congestive heart failure) Status: Acute (2) Asthma Status: Active (3) Coronary arteriosclerosis Status: Active (4) Smoker Status: Active (5) Alcohol abuse Status: Acute (6) CHF (congestive heart failure) Status: Acute (7) COPD (chronic obstructive pulmonary disease) Status: Acute (8) Diabetes Status: Acute (9) HTN (hypertension) Status: Acute (10) Respiratory failure Status: Acute (11) Respiratory failure Status: Acute - Assessment and Plan (Free Text) Assessment: r/o PE CHF ?ANASTACIA resp failure r/o pneumonia r/o sepsis renal insuff DM CAD IV antibiotics ordered Plan: poor prognosis family aware
[2017-04-08 15:15] LABS: BILIRUBIN,TOTAL 1.8 mg/dL (0.2-1.3)
[2017-04-08 15:16] LABS: ALB/GLOB RATIO 1.1 (1.0-2.1); MAGNESIUM 1.3 mg/dL (1.6-2.3)
[2017-04-08 15:52] LABS: CALCIUM 4.9 mg/dl (8.6-10.4); POTASSIUM 6.3 mmol/L (3.6-5.2)
[2017-04-08] MEDS ORDERED: cefTRIAXone 2 GM in Sodium Chloride 0.9% 100 ML IVPB SCH (16:00)
[2017-04-08] MEDS ORDERED: Sodium Bicarbonate (8.4%) 50 Meq Syringe IVP ONE ×2 (16:04→23:08)
--- NOTE | 2017-04-08 16:08 | RAD ---
HISTORY: ileus COMPARISON: None available. FINDINGS: BOWEL: Prominent air-filled loops of bowel within the central abdomen. Nonspecific bowel gas pattern ; ileus is favored however obstruction cannot be entirely excluded. No definite free air. Nasogastric tube extends expected location of the stomach. Moderate constipation, right colon. BONES: No acute osseous abnormality is detected. OTHER FINDINGS: None. IMPRESSION: Prominent air-filled loops of bowel within the central abdomen. Nonspecific bowel gas pattern ; ileus is favored however obstruction cannot be entirely excluded. Nasogastric tube extends expected location of the stomach. Moderate constipation, right colon.
[2017-04-08] MEDS ORDERED: (Novolin R) Insulin Human Regular 100 units/ml vial IV ONE (16:12)
[2017-04-08] MEDS ORDERED: Dextrose 50% SYRINGE Inj (50 ml) IV STA ×2 (16:14→23:08)
[2017-04-08] MEDS ORDERED: Albuterol 0.042% Inhal Sol (1.25 mg/3 mL) UD INH STA (16:16)
--- NOTE | 2017-04-08 16:19 | PN ---
SUBJECTIVE: The patient had rapid response yesterday because of shortness of breath, was intubated and transferred to the ICU. The patient subsequently became hypotensive and was started early afternoon on Levophed infusion. The patient was also started on vasopressor. No reported ventricular tachycardia. PHYSICAL EXAMINATION: VITAL SIGNS: Blood pressure 78 systolic, heart rate 102, temperature 97.8 and respiration 20. HEENT: Facial edema. CHEST: Bibasilar coarse crepitations. HEART: S1 and S2 regular. EXTREMITIES: 1+ edema. LABORATORY DATA: Hemoglobin and hematocrit of 10.9 and 32.6, white count and platelet count are within normal limit. SMA-7: Sodium 126, potassium 5.0, chloride 95, CO2 of 22, glucose 206, BUN 42, creatinine 2.3. Today's INR is 1.2. Again was performed; however, the report is still pending.. ASSESSMENT: 1. Cardiogenic shock. 2. Nonischemic cardiomyopathy. 3. Rule out deep venous thrombosis or pulmonary embolus. 4. Ethyl alcohol abuse. 5. Chronic obstructive lung disease. RECOMMENDATIONS: Continue Levophed and vasopressor. Please continue IV Zosyn 2.25 grams q. 6 hours, continue current bronchodilators. Beta blockers or YUMIKO inhibitors are not an option at this time. Today's chest x-ray revealed significant cardiomegaly with left upper lobe infiltrate. There was also significant gastric gas. The case was discussed with Dr. Marc, the mortgage protection specialist who attended the patient last night. Continue current therapeutic regimen of intravenous heparin, obtain also amylase and lipase level and flat plate of the abdomen as on clinical examination the patient has no bowel sounds. Pato Holman MD
[2017-04-08] MEDS ORDERED: Calcium Gluconate 4.65 mEq/10 ml Inj ONE (16:29)
--- NOTE | 2017-04-08 16:40 | CP.PCM.PN ---
Subjective - Date & Time of Evaluation Date of Evaluation: 04/08/17 Time of Evaluation: 14:20 - Subjective Subjective: clinically same Objective - Vital Signs/Intake and Output Vital Signs (last 24 hours): Temp Pulse Resp BP Pulse Ox 96.2 F L 95 H 20 72/0 L 94 L 04/08/17 16:18 04/08/17 16:18 04/08/17 16:18 04/08/17 16:18 04/08/17 14:03 Intake and Output: 04/08/17 04/08/17 06:59 18:59 Intake Total 1593.5 2258.2 Output Total 600 580 Balance 993.5 1678.2 - Medications Medications: Current Medications Albuterol/Ipratropium (Duoneb 3 Mg/0.5 Mg (3 Ml) Ud) 3 ml INH RQ6 CECELIA Last Admin: 04/08/17 07:20 Dose: 3 ml Dopamine HCl/Dextrose (Dopamine 400mg/250ml D5w) 400 mg in 250 mls @ 13.875 mls /hr IV .Q18H2M PRN; Protocol; 5 MCG/KG/MIN PRN Reason: TITRATE PER MD ORDER Last Admin: 04/08/17 06:25 Dose: 15 mcg/kg/min, 41.625 mls/hr Sodium Bicarbonate 150 meq/ (Dextrose) 1,150 mls @ 250 mls/hr IV .Q4H36M CECELIA Last Admin: 04/08/17 13:27 Dose: Not Given Heparin Sodium/Sodium Chloride (Heparin 86848 Units/250ml 1/2 Normal Saline) 25 ,000 units in 250 mls @ 13.32 mls/hr IV .[id number] PRN; Protocol; 18 UNITS/KG/HR PRN Reason: ADJUST RATE PER PROTOCOL Last Admin: 04/08/17 06:22 Dose: 18 units/kg/hr, 13.32 mls/hr Piperacillin Sod/Tazobactam Sod (Zosyn 2.25 Gm Iv Premix) 2.25 gm in 50 mls @ 100 mls/hr IVPB Q6H CECELIA Last Admin: 04/08/17 11:37 Dose: 100 mls/hr Midazolam HCl 100 mg/ Dextrose 100 mls @ 1.48 mls/hr IV .Q24H CECELIA; 0.02 MG/KG/ HR PRN Reason: Protocol Last Admin: 04/08/17 11:00 Dose: 0.02 mg/kg/hr, 1.48 mls/hr Sodium Chloride (Sodium Chloride 0.9%) 1,000 mls @ 75 mls/hr IV .[id number] CECELIA Last Admin: 04/08/17 11:05 Dose: 75 mls/hr Norepinephrine Bitartrate 8 mg (/ Dextrose) 258 mls @ 7.74 mls/hr IV .Q24H PRN ; Protocol; 4 MCG/MIN PRN Reason: TITRATE PER MD ORDER Vasopressin 40 units/ Sodium (Chloride) 40 mls @ 1.2 mls/hr IV .Q24H CECELIA; 0.02 UNITS/MIN PRN Reason: Protocol Last Admin: 04/08/17 13:54 Dose: 0.02 units/min, 1.2 mls/hr Ceftriaxone Sodium 2 gm/ (Sodium Chloride) 100 mls @ 200 mls/hr IVPB Q24H CECELIA Calcium Gluconate 4.65 meq/ (Sodium Chloride) 110 mls @ 100 mls/hr IV ONCE ONE Stop: 04/08/17 17:05 Insulin Aspart (Novolog) 0 unit SC Q6H CECELIA PRN Reason: Protocol Last Admin: 04/08/17 13:33 Dose: Not Given Methylprednisolone (Solu-Medrol) 40 mg IVP Q8 [facility] Last Admin: 04/08/17 06:27 Dose: 40 mg Pantoprazole Sodium (Protonix Inj) 40 mg IVP DAILY [facility] Last Admin: 04/08/17 11:00 Dose: 40 mg - Labs Labs: 04/08/17 05:55 04/08/17 14:58 PT 13.2 SECONDS (9.7-12.2) H 04/08/17 05:55 INR 1.2 04/08/17 05:55 APTT 20 SECONDS (21-34) L D 04/08/17 05:55 - Constitutional Appears: Well - Head Exam Head Exam: ATRAUMATIC, NORMAL INSPECTION, NORMOCEPHALIC - Eye Exam Eye Exam: EOMI, Normal appearance, PERRL Pupil Exam: NORMAL ACCOMODATION, PERRL - ENT Exam ENT Exam: Mucous Membranes Moist, Normal Exam - Neck Exam Neck Exam: Full ROM, Normal Inspection. absent: Lymphadenopathy - Respiratory Exam Respiratory Exam: Decreased Breath Sounds - Cardiovascular Exam Cardiovascular Exam: REGULAR RHYTHM, +S1, +S2 - GI/Abdominal Exam GI & Abdominal Exam: Soft, Diminished Bowel Sounds - Rectal Exam Rectal Exam: Deferred
[2017-04-08 18:05] LABS: AMYLASE 328 U/L (30-110)
[2017-04-08 22:24] LABS: BASO # 0.1 K/uL (0.0-0.2); BASO % 0.4 % (0.0-2.0); EOS # 0.2 K/uL (0.0-0.7); EOS % 0.9 % (0.0-4.0); LYMPH % 4.7 % (20.0-40.0); MEAN CELL VOLUME 97.4 fL (80.0-94.0); MEAN CORPUSCULAR HGB CONC 32.8 g/dL (33.0-37.0); MEAN PLATELET VOLUME 9.7 fL (7.2-11.7); MONO # 1.2 K/uL (0.0-0.8); MONO % 5.5 % (0.0-10.0); NRBC % 0.4 % (0.0-2.0); PLATELET COUNT 160 K/uL (130-400); RED CELL DISTRIBUTION WIDTH 15.6 % (11.5-14.5)
[2017-04-08 22:28] LABS: WHITE BLOOD COUNT 22.2 K/uL (4.8-10.8)
[2017-04-08 22:41] LABS: POTASSIUM 5.2 mmol/L (3.6-5.2)
[2017-04-08 22:43] LABS: BILIRUBIN,TOTAL 2.7 mg/dL (0.2-1.3)
[2017-04-08 22:44] LABS: ALB/GLOB RATIO 1.1 (1.0-2.1); MAGNESIUM 1.5 mg/dL (1.6-2.3); PHOSPHOROUS 8.5 mg/dL (2.5-4.5)
[2017-04-08 22:49] LABS: CALCIUM 5.9 mg/dl (8.6-10.4)
[2017-04-08 22:54] LABS: NEUTROPHIL 84 % (50-75); NUCLEATED RED BLOOD CELL 1 % (0-0); TOTAL CELLS COUNTED 100
[2017-04-08 22:55] LABS: LARGE PLATELETS PRESENT
[2017-04-09] MEDS: DOPamine 400mg/250ml D5W 400 MG/250 ML BAG IV PRN
[2017-04-09] MEDS: (Novolog) Insulin Aspart, Recombinant 100 u/ml 10 ml vial SC SCH
[2017-04-09 00:42] VITALS: TEMP 98.6
[2017-04-09] MEDS ORDERED: Midazolam 2 MG/2 ML VIAL IVP PRN (00:58)
--- NOTE | 2017-04-09 01:04 | CARD ---
APPROVED REPORT EXAM: Two-dimensional and M-mode echocardiogram with Doppler and color Doppler. Other Information Quality : GoodRhythm : INDICATION Congestive Heart Failure COPD Acohol Abuse/ smoker RISK FACTORS Hypertension Diabetes 2D DIMENSIONS IVSd1.0 (0.7-1.1cm)LVDd5.6 (3.9-5.9cm) PWd0.8 (0.7-1.1cm)LVDs5.3 (2.5-4.0cm) FS (%) 6.6 %LVEF (%)10.0 (>50%) M-Mode DIMENSIONS Left Atrium (MM)4.27 (2.5-4.0cm)Aortic Root3.44 (2.2-3.7cm) Aortic Cusp Exc.2.05 (1.5-2.0cm) Mitral Valve E/A ratio0.0 TDI E/Lateral E'0.0E/Medial E'0.0 Tricuspid Valve TR Peak [id number] Peak Gr.[id number] LEFT VENTRICLE The left ventricle is normal size. There is normal left ventricular wall thickness. Left ventricle systolic function is severely impaired. The Ejection Fraction is 10-15%. There is global hypokinesis of the left ventricle. The left ventricular diastolic function is normal. No left ventricle thrombus noted on this study. RIGHT VENTRICLE The right ventricle is normal size. There is normal right ventricular wall thickness. The right ventricular systolic function is normal. There is a catheter in the right ventricle. ATRIA The left atrium is mildly dilated. A catheter is seen in the right atrium. AORTIC VALVE The aortic valve is mildly sclerotic. The aortic valve is trileaflet. No aortic regurgitation is present. There is no aortic valvular stenosis. MITRAL VALVE Mitral annular calcification is mild There is no evidence of mitral valve prolapse. There is no mitral valve stenosis. Mitral regurgitation is mild. TRICUSPID VALVE The tricuspid valve is normal in structure. There is severe tricuspid regurgitation. There is no tricuspid valve prolapse or vegetation. There is no tricuspid valve stenosis. PULMONIC VALVE The pulmonic valve is not well visualized. There is mild pulmonic valvular regurgitation. There is no pulmonic valvular stenosis. GREAT VESSELS The aortic root is normal in size. The IVC collapses <50% with inspiration. PERICARDIAL EFFUSION There is no pericardial effusion. <Conclusion> The left ventricle is normal size. Left ventricle systolic function is severely impaired. The Ejection Fraction is 10-15%. There is global hypokinesis of the left ventricle. The left ventricular diastolic function is normal. The right ventricle is normal size. The right ventricular systolic function is normal. The aortic valve is mildly sclerotic. Mitral regurgitation is mild. There is severe tricuspid regurgitation. There is mild pulmonic valvular regurgitation.
[2017-04-09 01:15] VITALS: O2SAT 93
[2017-04-09] MEDS: Albuterol-Ipratrop 3 mg / 0.5 (3 ml) UD INH SCH (01:38)
[2017-04-09] MEDS ORDERED: Sodium Chloride 0.9% 500 ML IV ONE ×2 (02:31→02:33)
[2017-04-09] MEDS: Sodium Chloride 0.9% 1,000 ML IV SCH (03:00)
[2017-04-09] MEDS ORDERED: Calcium Gluconate 4.65 mEq/10 ml Inj ONE (03:05)
[2017-04-09] MEDS ORDERED: Sodium Bicarbonate (8.4%) 50 Meq Syringe ONE (03:05)
--- NOTE | 2017-04-09 03:45 | CP.PCM.PRO ---
Pronouncement of Note - Clinical Findings Physical Exam: No Response Verbal/Painful Stimuli, Absent Peripheral Pulses{ Carotid & Femoral}, Absent Heart & Breath Sounds, No Pupillary Light Reflex, No Corneal Reflex, Pupils Fixed & Dilated, Absence of Vital Signs - Pronouncement Time Time of Pronouncement of : 03:25 Additional Comments: Cardiopulmonary Resuscitation was unsuccessful - Notifications Pronouncement Notifications: Atending Notified Senior Consulting Manager Notified: No - Autopsy Autopsy Requested: No - [place] [id number] Additional Comments: Message left on answering machine for the family member to call the [facility] ICU.
[2017-04-09 04:43] VITALS: BP 60/0; PULSE 50; RESP 20
--- NOTE | 2017-04-09 10:47 | VASCLAB ---
PROCEDURE: Lower Extremity Venous Duplex Exam. HISTORY: Shortness of breath PRIORS: No previous vascular exams. TECHNIQUE: Bilateral common femoral, femoral, popliteal and posterior tibial, peroneal and great saphenous veins were evaluated. Flow was assessed with color Doppler, compressibility, assessment of phasic flow and augmentation response. Report prepared by JUVENAL Anthony FINDINGS: RIGHT: 1. Common Femoral Vein: 1.1. Compressibility - Fully compressible: Thrombus - None : Flow - Phasic: Augmentation -Normal: Reflux - None. 2. Femoral Vein: 2.1. Compressibility - Fully compressible: Thrombus - None : Flow - Phasic: Augmentation -Normal: Reflux - None. 3. Popliteal Vein: 3.1. Compressibility - Fully compressible: Thrombus - None : Flow - Phasic: Augmentation -Normal: Reflux - None. 4. Posterior Tibial Vein: 4.1. Compressibility - Fully compressible: Thrombus - None: Flow - Phasic: Augmentation -Normal: Reflux - None. 5. Peroneal Vein: 5.1. Compressibility - Fully compressible: Thrombus - None: Flow - Phasic: Augmentation -Normal: Reflux - None. 6. Great Saphenous Vein: 6.1. Not visualized LEFT: 1. Common Femoral Vein: 1.1. Compressibility - Fully compressible: Thrombus - None: Flow - Phasic: Augmentation -Normal: Reflux - None. 2. Femoral Vein: 2.1. Compressibility - Fully compressible: Thrombus - None: Flow - Phasic: Augmentation -Normal: Reflux - None. 3. Popliteal Vein: 3.1. Compressibility - Fully compressible: Thrombus - None : Flow - Phasic: Augmentation -Normal: Reflux - None. 4. Posterior Tibial Vein: 4.1. Compressibility - Fully compressible: Thrombus - None: Flow - Phasic: Augmentation -Normal: Reflux - None. 5. Peroneal Vein: 5.1. Compressibility - Fully compressible: Thrombus - None: Flow - Phasic: Augmentation -Normal: Reflux - None. 6. Great Saphenous Vein: 6.1. Not visualized OTHER FINDINGS: Bilateral great saphenous veins were not visualized. IMPRESSION: Right: No evidence of deep vein thrombosis of the right lower extremity. Normal valve function noted of the right side. Left: No evidence of deep vein thrombosis of the left lower extremity. Normal valve function noted of the left side.
--- NOTE | 2017-04-10 22:56 | CARD ---
APPROVED REPORT EKG Measurement Heart [id number] <Conclusion> Normal sinus rhythm T wave abnormality, consider lateral ischemia Prolonged QT Abnormal ECG
--- NOTE | 2017-04-10 22:56 | CARD ---
APPROVED REPORT EKG Measurement Heart [id number] <Conclusion> Normal sinus rhythm T wave abnormality, consider lateral ischemia Prolonged QT Abnormal ECG
== END 2017-04-09 06:15 | DRG 208 ==
LOC: C.ER 12:26 → C.9E 14:04 → C.6T 17:10 → C.9I 04-08 00:24 → OBSVTOIN 04-08 10:40
PROVIDERS: ADMIT Internal Medicine Nephrology; ATTEND Internal Medicine Nephrology
PROC: 5A1945Z Respiratory Ventilation, 24-96 Consecutive Hours (ICD-10-PCS; principal; 2017-04-08)
PROC: 0BH17EZ Insertion of Endotracheal Airway into Trachea, Via Natural or Artificial Opening (ICD-10-PCS; 2017-04-08)
PROC: 3E033XZ Introduction of Vasopressor into Peripheral Vein, Percutaneous Approach (ICD-10-PCS; 2017-04-08)
PROC: 5A12012 Performance of Cardiac Output, Single, Manual (ICD-10-PCS; 2017-04-09)
DX: J96.01 Acute respiratory failure with hypoxia (principal); R57.0 Cardiogenic shock; I50.23 Acute on chronic systolic (congestive) heart failure; J18.9 Pneumonia, unspecified organism; N17.9 Acute kidney failure, unspecified; I42.9 Cardiomyopathy, unspecified; I11.0 Hypertensive heart disease with heart failure; E87.5 Hyperkalemia; J44.9 Chronic obstructive pulmonary disease, unspecified; E11.9 Type 2 diabetes mellitus without complications; E78.5 Hyperlipidemia, unspecified; Z79.4 Long term (current) use of insulin; Z95.0 Presence of cardiac pacemaker; Z96.651 Presence of right artificial knee joint; F17.210 Nicotine dependence, cigarettes, uncomplicated; I25.10 Atherosclerotic heart disease of native coronary artery without angina pectoris; F10.20 Alcohol dependence, uncomplicated